=== PATIENT | female | born 1990 | race Hispanic/Latino ===

== ENCOUNTER 2019-09-12 19:44 | Emergency (ER) | payer OTHER ==
--- NOTE | 2019-09-12 20:45 | ER ---
Nurse's Notes [facility] Name: Sindy Chavez Age: 28 yrs Sex: Female : 1990 Arrival Date: 09/12/2019 Time: 19:48 Bed 13 Private MD: Diagnosis: Urticaria Presentation: 09/11 19:59 Chief complaint: Patient states: Started having allergic reaction to body this morning ll1 with itching. No SOB. Unknown allergen. Coronavirus screen: Proceed with normal triage. Patient denies a cough. Patient denies shortness of breath or difficulty breathing. Patient denies measured and/or subjective temperature greater than 100.4F prior to today's visit. Patient denies travel on a cruise ship or to a country the [facility] currently lists as an affected area. Patient denies contact with known and/or suspected case of COVID-19. Ebola Screen: Patient denies travel to an Ebola-affected area in the 21 days before illness onset. Onset: The symptoms/episode began/occurred this morning. Anaphylaxis evaluation, no signs or symptoms of anaphylaxis were noted. Initial Sepsis Screen: Does the patient meet any 2 criteria? No. Patient's initial sepsis screen is negative. Does the patient have a suspected source of infection? No. Patient's initial sepsis screen is negative. Risk Assessment: Do you want to hurt yourself or someone else? Patient reports no desire to harm self or others. Onset of symptoms was September 12, 2019. 19:59 Method Of Arrival: Ambulatory ll1 19:59 Acuity: AVIS 4 ll1 Triage Assessment: 20:05 General: Appears in no apparent distress. uncomfortable, Behavior is calm, cooperative, vc appropriate for age. Historical: - Allergies: 20:01 Flonase; ll1 20:01 Morphine; ll1 20:01 Tylenol; ll1 - PMHx: 20:01 Asthma; ll1 - PSHx: 20:01 None; ll1 - Social history:: Smoking status: Patient denies any tobacco usage or history of. Patient/guardian denies using alcohol, street drugs, tobacco products. Screenin:05 Abuse screen: Denies threats or abuse. Nutritional screening: No deficits noted. Tuberculosis screening: No symptoms or risk factors identified. Fall Risk None identified. Assessment: 20:00 General: Appears in no apparent distress. distressed, Behavior is calm, cooperative, vc appropriate for age. Pain: Denies pain. Respiratory: Airway is patent Respiratory effort is even, unlabored, Respiratory pattern is regular, symmetrical. Derm: Rash noted that is urticaria, on generalized. Musculoskeletal: No deficits noted. 21:00 Reassessment: Patient appears in no apparent distress at this time. Patient and/or vc family updated on plan of care and expected duration. Pain level reassessed. Patient is alert, oriented x 3, equal unlabored respirations, skin warm/dry/pink. Vital Signs: 19:59 BP 131 / 81; Pulse 89; Resp 18; Temp 98.7; Pulse Ox 96% ; Pain 3/10; ll1 ED Course: 19:48 Patient arrived in ED. mr 19:52 Anthony Navarro MD is Attending Physician. pk 20:01 [facility]riage [facility]. [facility] 20:02 Arm band placed on Patient placed in an exam room, on a stretcher. [facility] 20:43 Gadiel Daniel MD is Referral Physician. pk 21:05 Patient has correct armband on for positive identification. Bed in low position. Call light in reach. 21:26 No provider procedures requiring assistance completed. Patient did not have IV access vc during this emergency room visit. Administered Medications: 20:48 Drug: Benadryl 50 mg Route: IM; Site: right ventrogluteal; 21:06 Follow up: Response: No adverse reaction Outcome: 20:44 Discharge ordered by . pk 21:05 Discharged to home ambulatory. 21:05 Condition: good 21:05 Discharge instructions given to patient, Instructed on discharge instructions, follow up and referral plans. medication usage, Demonstrated understanding of instructions, follow-up care, medications, Prescriptions given X 2. 21:06 Patient left the ED. Signatures: Anthony Navarro MD MD [facility] Ashli Varner mr Cayla Salinas RN RN vc Harris, Amy, Alexandra De La Fuente RN, RN RN [facility]
--- NOTE | 2019-09-12 20:45 | EDPHYS ---
Physician Documentation [facility] Name: Sindy Chavez Age: 28 yrs Sex: Female : 1990 Arrival Date: 09/12/2019 Time: 19:48 Bed 13 Private MD: ED Physician Anthony Navarro HPI: 09/11 20:11 This 28 yrs old Female presents to ER via Ambulatory with complaints of pkl Allergic Reaction. 20:11 The rash is located on the body diffusely. The rash can be described as urticarial. pkl Onset: The symptoms/episode began/occurred today. Associated signs and symptoms: Pertinent positives: itching. Historical: - Allergies: 20:01 Flonase; ll1 20:01 Morphine; ll1 20:01 Tylenol; ll1 - PMHx: 20:01 Asthma; ll1 - PSHx: 20:01 None; ll1 - Social history:: Smoking status: Patient denies any tobacco usage or history of. Patient/guardian denies using alcohol, street drugs, tobacco products. ROS: 20:11 Eyes: Negative for injury, pain, redness, and discharge, ENT: Negative for injury, pkl pain, and discharge, Neck: Negative for injury, pain, and swelling, Cardiovascular: Negative for chest pain, palpitations, and edema, Respiratory: Negative for shortness of breath, cough, wheezing, and pleuritic chest pain, Abdomen/GI: Negative for abdominal pain, nausea, vomiting, diarrhea, and constipation, Back: Negative for injury and pain, : Negative for injury, bleeding, discharge, and swelling, MS/Extremity: Negative for injury and deformity. 20:11 Skin: Positive for rash, diffusely. 20:11 Neuro: Negative for altered mental status. Exam: 20:11 Head/Face: Normocephalic, atraumatic. Eyes: Pupils equal round and reactive to light, pkl extra-ocular motions intact. Lids and lashes normal. Conjunctiva and sclera are non-icteric and not injected. Cornea within normal limits. Periorbital areas with no swelling, redness, or edema. ENT: Nares patent. No nasal discharge, no septal abnormalities noted. Tympanic membranes are normal and external auditory canals are clear. Oropharynx with no redness, swelling, or masses, exudates, or evidence of obstruction, uvula midline. Mucous membranes moist. Neck: Trachea midline, no thyromegaly or masses palpated, and no cervical lymphadenopathy. Supple, full range of motion without nuchal rigidity, or vertebral point tenderness. No Meningismus. Chest/axilla: Normal chest wall appearance and motion. Nontender with no deformity. No lesions are appreciated. Cardiovascular: Regular rate and rhythm with a normal S1 and S2. No gallops, murmurs, or rubs. Normal PMI, no JVD. No pulse deficits. Respiratory: Lungs have equal breath sounds bilaterally, clear to auscultation and percussion. No rales, rhonchi or wheezes noted. No increased work of breathing, no retractions or nasal flaring. Abdomen/GI: Soft, non-tender, with normal bowel sounds. No distension or tympany. No guarding or rebound. No evidence of tenderness throughout. Back: No spinal tenderness. No costovertebral tenderness. Full range of motion. MS/ Extremity: Pulses equal, no cyanosis. Neurovascular intact. Full, normal range of motion. Neuro: Awake and alert, GCS 15, oriented to person, place, time, and situation. Cranial nerves II-XII grossly intact. Motor strength 5/5 in all extremities. Sensory grossly intact. Cerebellar exam normal. Normal gait. 20:11 Skin: rash can be described as urticarial, and is diffusely located. Vital Signs: 19:59 BP 131 / 81; Pulse 89; Resp 18; Temp 98.7; Pulse Ox 96% ; Pain 3/10; ll1 MDM: 19:52 Patient medically screened. pkl 20:11 Data reviewed: vital signs, nurses notes. pkl Administered Medications: 20:48 Drug: Benadryl 50 mg Route: IM; Site: right ventrogluteal; 21:06 Follow up: Response: No adverse reaction Disposition: 09/12/19 20:44 Discharged to Home. Impression: Urticaria. - Condition is Stable. - Medication Reconciliation Form, Thank You Letter, Antibiotic Education, Prescription Opioid Use form. - Follow up: Gadiel Daniel MD; When: 2 - 3 days; Reason: Re-evaluation by your physician. - Problem is new. - Symptoms have improved. Signatures: Anthony Navarro MD MD pkl Isabel García RN RN Ta, Lynsay, RN RN ll1 Corrections: (The following items were deleted from the chart) 21:06 20:44 09/12/2019 20:44 Discharged to Home. Impression: Urticaria. Condition is Stable. ah Forms are Medication Reconciliation Form, Thank You Letter, Antibiotic Education, Prescription Opioid Use. Follow up: Gadiel Daniel; When: 2 - 3 days; Reason: Re-evaluation by your physician. Problem is new. Symptoms have improved. pkl
[2019-09-12] MEDS ORDERED: DIPHENHYDRAMINE 50 MG/ML VIAL ONE (20:49)
[2019-09-12 21:13] VITALS: BP 131/81; TEMP 98.7; O2SAT 96
== END 2019-09-12 21:06 | disposition home or self-care (01) ==
LOC: ER 19:44
DX: L50.9 Urticaria, unspecified (principal); Z88.5 Allergy status to narcotic agent; Z88.6 Allergy status to analgesic agent; Z88.8 Allergy status to other drugs, medicaments and biological substances
CPT/HCPCS: 96372; 99283; J1200

== ENCOUNTER 2019-09-13 07:31 | Emergency (ER) | payer OTHER ==
--- OUTSIDE RECORDS SUMMARY | 2019-09-13 07:33 | XMS REPORT ---
:1990 Author Organization [facility] t Address [address] [place] [address] Dr. Cruz [address] [place] [address] Care Team Providers Name Role Phone Unavailable Unavailable Unavailable Problems This patient has no known problems. Allergies, Adverse Reactions, Alerts This patient has no known allergies or adverse reactions. Medications This patient has no known medications.
--- OUTSIDE RECORDS SUMMARY | 2019-09-13 07:33 | XMS REPORT | Summary of Care ---
:1990 Author Organization [facility] - [facility] Address [address] [place] [address] Care Team Providers Name Role Phone Teo Arellano Primary Care Provider Encounter Details Date Type Department Care Team Description 01/05/2019 Letter (Out) [facility] NavarroLeeann MD [address], [address] [facility] [address] [place] [address] [place] [address] [phone] Allergies Active Allergy Reactions Severity Noted Date Comments Fluticasone Propionate Anaphylaxis 01/05/2019 Morphine Hives 01/05/2019 documented as of this encounter (statuses as of 01/05/2019) Medications Medication Sig Dispensed Refills Start Date End Date Status vit Take by mouth. 0 A ctive calc,iron,folic ( VITAMIN ORAL) documented as of this encounter (statuses as of 01/05/2019) Active Problems Estimated Date of Delivery Comments Yes 08/29/2019 No additional problems on filedocumented as of this encounter (statuses as of 01/05/2019) Social History Tobacco Use Types Packs/Day Years Used Date Never Smoker Smokeless Tobacco: Never Used Alcohol Use Drinks/Week oz/Week Comments Not Currently Estimated Date of Delivery Comments Yes 08/29/2019 Sex Assigned at Date Recorded Not on file Job Start Date Occupation Industry Not on file Not on file Not on file Travel History Travel Start Travel End No recent travel history available. documented as of this encounter Last Filed Vital Signs Not on filedocumented in this encounter Plan of Treatment Date Type Specialty Care Team Description 01/21/2019 Routine Obstetrics & Navarro, Leeann Figueredo MD Visit Gynecology [address] [place] [address] DR. Nelson [place], [place] [address] [phone] Health Maintenance Due Date Last Done Comments VARICELLA VACCINES (1 of 2 - 13+ 10/18/2004 2-dose series) DTaP,Tdap,and Td Vaccines (1 - 10/18/2010 Tdap) PAP SMEAR 10/18/2012 INFLUENZA VACCINE (#1) 2019 PNEUMOCOCCAL 0-64 YEARS COMBINED Aged Out No longer eligible based on SERIES patient's age to complete this topic documented as of this encounter Results Not on filedocumented in this encounter Insurance Payer Benefit Plan / Group Subscriber ID Effective Dates Phone Address Type AETNA AETNA [facility] [id number] 2018-Present PPO documented as of this encounter
--- OUTSIDE RECORDS SUMMARY | 2019-09-13 07:34 | XMS REPORT | Summary of Care ---
:1990 Author Organization [facility] - [facility] Address [address] [place] [address] Care Team Providers Name Role Phone Sandragoyo Teo Michaela Primary Care Provider Reason for Visit Reason Comments Orders Encounter Details Date Type Department Care Team Description 01/08/2019 Case Management [facility] Leeann Navarro MD Orders [address]- [address] [facility] [place] [address] [address] [place] [address] [place] [address] [phone] Allergies Active Allergy Reactions Severity Noted Date Comments Fluticasone Propionate Anaphylaxis 01/05/2019 Morphine Hives 01/05/2019 documented as of this encounter (statuses as of 01/08/2019) Medications Medication Sig Dispensed Refills Start Date End Date Status vit Take by mouth. 0 A ctive calc,iron,folic ( VITAMIN ORAL) documented as of this encounter (statuses as of 01/08/2019) Active Problems Estimated Date of Delivery Comments Yes 08/29/2019 No additional problems on filedocumented as of this encounter (statuses as of 01/08/2019) Social History Tobacco Use Types Packs/Day Years [...] & Navarro, Leeann Figueredo MD Visit Gynecology [address] [place] [address] [address]. [place], [place] [address] [phone] Name Type Priority Associated Diagnoses Order S chedule TOTAL BETA HCG ASSAY LAB Routine examinatio n or Expected: 01/10/2019, test, positive result s: 02/08/2019 Health Maintenance Due Date Last Done Comments VARICELLA VACCINES (1 of 2 - 13+ 10/18/2004 2-dose series) DTaP,Tdap,and Td Vaccines (1 - 10/18/2010 Tdap) PAP SMEAR 10/18/2012 INFLUENZA VACCINE (#1) 2019 PNEUMOCOCCAL 0-64 YEARS COMBINED Aged Out No longer eligible based on SERIES patient's age to complete this topic documented as of this encounter Results Not on filedocumented in this encounter Visit Diagnoses Diagnosis examination or test, positive result - Primary documented in this encounter Insurance Payer Benefit Plan / Group Subscriber ID Effective Dates Phone Address Type AETNA AETNA [facility] [id number] 2018-Present PPO documented as of this encounter
--- OUTSIDE RECORDS SUMMARY | 2019-09-13 07:34 | XMS REPORT | Summary of Care ---
:1990 Author Organization [facility] Address [address] [place] [address] Care Team Providers Name Role Phone Pcp, Patient Does Not Have A Primary Care Provider +[id number] Reason for Visit Reason Comments LAB WORK Auth/Cert Status Reason Specialty Diagnoses / Referred By Referred To Procedures Contact Contact Clinical Medical Diagnoses Encounter for test, result positive Encounter for test, result positive [Z32.01] [facility] Lab Laboratory Procedures TOTAL BETA HCG ASSAY [address] [facility] [place] [address] Encounter Details Date Type Department Care Team Description 01/10/2019 Consulting Sme Visit [facility] Leeann Navarro MD [address] [facility] [address] Nelson [facility] [place] [address] Phlebotomy 1, [facility] Lab examination or test, [facility] positive result [address] [facility] [place] [address] Allergies Active Allergy Reactions Severity Noted Date Comments Fluticasone Propionate Anaphylaxis 01/05/2019 Morphine Hives 01/05/2019 documented as of this encounter (statuses as of 01/10/2019) Medications Medication Sig Dispensed Refills Start Date End Date Status vit Take by mouth. 0 A ctive calc,iron,folic ( VITAMIN ORAL) documented as of this encounter (statuses as of 01/10/2019) Active Problems Estimated Date of Delivery Comments Yes 08/29/2019 No additional problems on filedocumented as of this encounter (statuses as of 01/10/2019) Social History Tobacco Use Types Packs/Day Years [...] & Navarro, Leeann Figueredo MD Visit Gynecology [address] [place] [address] DR. Nelson [place] [address] 15 [phone] Name Type Priority Associated Diagnoses Date/Ti me TOTAL BETA HCG ASSAY LAB Routine examinatio n or 01/10/2019 9:47 AM CDT test, positive result Health Maintenance Due Date Last Done Comments VARICELLA VACCINES (1 of 2 - 13+ 10/18/2004 2-dose series) DTaP,Tdap,and Td Vaccines (1 - 10/18/2010 Tdap) INFLUENZA VACCINE (#1) 2019 PAP SMEAR 01/05/2022 01/05/2019 PNEUMOCOCCAL 0-64 YEARS COMBINED Aged Out No longer eligible based on SERIES patient's age to complete this topic documented as of this encounter Results Not on filedocumented in this encounter Visit Diagnoses Diagnosis examination or test, positive result documented in this encounter documented as of this encounter
--- OUTSIDE RECORDS SUMMARY | 2019-09-13 07:34 | XMS REPORT | Summary of Care ---
:[address] [facility] Address [address] [place] [address] Care Team Providers Name Role Phone Teo Arellano Primary Care Provider Reason for Visit Reason Comments MISSED MENSES Encounter Details Date Type Department Care Team Description 01/05/2019 Initial [facility] Women's Leeann Navarro am, MD Cramping affecting , antepartum (Primary Dx); Visit Healthcare- [address] [place] [address] men ses; Rose GAMEZ examination or test, positive result; [address] [place] [address], [facility] 208 with inconclusive viabil ity, single or unspecified fetus; [address] [place], [place] Mild intermittent [place] [phone] Allergies Active Allergy Reactions Severity Noted [...] of this encounter Last Filed Vital Signs Vital Sign Reading Time Taken Comments Blood Pressure 104/66 01/05/2019 8:10 AM CDT Pulse 74 01/05/2019 8:10 AM CDT Temperature 36.9 C (98.5 F) 01/05/2019 8:10 AM CDT Respiratory Rate 20 01/05/2019 8:10 AM CDT Oxygen Saturation - - Inhaled Oxygen Concentration - - Weight 72.1 kg (159 lb) 01/05/2019 8:10 AM CDT Height 157.5 cm (5' 2") 01/05/2019 8:10 AM CDT Body Mass Index 29.08 01/05/2019 8:10 AM CDT documented in this encounter Progress Notes Leeann Navarro MD - 01/05/2019 8:00 AM CDT Chief complaint: Chief Complaint Patient presents with MISSED MENSES HPI Sindy Chavez is a 28 year old female @ 6w2d by Patient's last menstrual period was 11/22/2018 (exact date). here for NOB visit. Regular monthly period. Denies vaginal bleeding. + midline abdominal cramping intermittently. Histories OB History Para Term AB Living 1 0 0 0 0 0 SAB TAB Ectopic Multiple Live Births 0 0 0 0 0 # Outcome Date GA Lbr Nba/2nd Weight Sex Delivery Anes PTL Lv 1 Current Past Medical History: Diagnosis Date Anemia Asthma Breast disorder Pain Kidney disease Pyelonephritis Ovarian cyst 2011 Family History Problem Relation Age of Onset Breast Cancer Mother High cholesterol Father Hypertension Father Arthritis NoFHx Asthma NoFHx defects NoFHx Genetic NoFHx Colon Cancer NoFHx Ovarian Cancer NoFHx Uterine Cancer NoFHx Cancer NoFHx Depression NoFHx Psychiatry NoFHx Diabetes NoFHx Heart NoFHx Mental retardation NoFHx Neurological NoFHx Osteoporosis NoFHx Family Status Relation Name Status Mo Alive Fa Alive NoFHx (Not Specified) Past Surgical History: Procedure Laterality Date COLONOSCOPY 2018 TOOTH EXTRACTION Social History Socioeconomic History Marital status: Single Spouse name: Not on file Number of children: Not on file Years of education: Not on file Highest education level: Not on file Occupational History Not on file Social Needs Financial resource strain: Not on file Food insecurity: Worry: Not on file Inability: Not on file Transportation needs: Medical: Not on file Non-medical: Not on file Tobacco Use Smoking status: Never Smoker Smokeless tobacco: Never Used Substance and Sexual Activity Alcohol use: Not Currently Drug use: Never Sexual activity: Yes Partners: Male Lifestyle Physical activity: Days per week: Not on file Minutes per session: Not on file Stress: Not on file Relationships Social connections: Talks on phone: Not on file Gets together: Not on file Attends mandaeism service: Not on file Active member of club or organization: Not on file Attends meetings of clubs or organizations: Not on file Relationship status: Not on file Intimate partner violence: Fear of current or ex partner: Not on file Emotionally abused: Not on file Physically abused: Not on file Forced sexual activity: Not on file Other Topics Concern Not on file Social History Narrative No exposure to cats Mandaeism preference: Hindu Denies domestic violence or abuse Social History Substance and Sexual Activity Sexual Activity Yes Partners: Male Genetic Screen Teratological Substances (specify type & strength/dose) since LMP: No No Significant History of Genetic Disorders: No Significant History of Genetic Disorders Labs No new labs Radiology No new radiology. Allergies Sindy is allergic to flonase [fluticasone propionate] and morphine. Medications Sindy has a current medication list which includes the following prescription(s): vit calc,iron,folic. Review of Systems Constitutional: Negative for chills, fatigue and fever. HENT: Negative for congestion, rhinorrhea, sneezing and sore throat. Respiratory: Negative for cough, chest tightness, shortness of breath and wheezing. Breasts: Positive for pain (since ). Negative for discharge, mass and unequal size. Cardiovascular: Negative for chest pain and palpitations. Gastrointestinal: Negative for abdominal distention, abdominal pain, anal bleeding, blood in stool, constipation, diarrhea, nausea and vomiting. Genitourinary: Positive for dyspareunia. Negative for bladder incontinence, dysuria, urgency, frequency, vaginal bleeding and vaginal discharge. Musculoskeletal: Negative for gait problem. Skin: Negative for rash. Neurological: Negative for syncope, light-headedness and headaches. Psychiatric/Behavioral: Negative for dysphoric mood, self-injury and suicidal ideas. The patient is nervous/anxious. Hematological: Negative for cold intolerance and heat intolerance. Does not bruise/bleed easily. Endocrine: Negative for cold intolerance and heat intolerance. BP 104/66 (BP Location: Left arm, Patient Position: Sitting, BP CUFF SIZE: Adult Medium) | Pulse 74 | Temp 36.9 C (98.5 F) (Oral) | Resp 20 | Ht 5' 2" (1.575 m) | Wt 159 lb (72.1 kg) | LMP 11/22/2018 (Exact Date) | BMI 29.08 kg/m Pregravid BMI: Could not be calculated Physical Exam Vitals reviewed. Constitutional: She is oriented to person, place, and time. She appears well- developed and well-nourished. Neck: No mass. No thyromegaly palpated. Cardiovascular: Regular rate and rhythm. Pulmonary/Chest: Breath sounds clear to auscultation. Normal inspiratory effort. Abdominal: Abdomen is soft. No tenderness present. No hernia palpated or inspected. Neuro/Psychiatric: She has a normal mood and affect. She is oriented to person, place, and time. Skin: Skin normal. No rash present. Lymphadenopathy: No axillary adenopathy present. No inguinal adenopathy present. Breast: Right breast exhibits no mass, no nipple discharge and no tenderness. Left breast exhibits no mass, no nipple discharge and no tenderness. Breasts are symmetrical. External genitalia: Normal external genitalia appropriate for age. Normal hair distribution. No labial lesion. Urethral meatus: Normal urethral meatus Urethra: Normal urethra. Bladder: Normal bladder Vagina:Normal vagina. Cervix: Normal cervix. No lesion. No tenderness and no discharge present. Uterus: Uterus is normal size and non-tender. Adnexa: Right adnexa without tenderness or mass. Left adnexa without tenderness or mass. Anus/perineum: Normal perineum and normal anus. Assessment/Plan See OB Summary Return to clinic in 2 weeks. Reviewed patient instructions and provided printed copy. Activity restrictions: As tolerated at 6w2d This visit did not involve counseling and coordination that comprised more than 50% of the visit time. Leeann Navarro MD 01/05/2019 10:30 AM documented in this encounter Plan of Treatment Date Type Specialty Care Team Description 01/05/2019 Ancillary Procedure Obstetrics & Leeann Navarro MD Arrived Gynecology [address] [place] [address] [address] [place], [place] [address] [phone] 01/21/2019 Routine Obstetrics & Leeann Navarro MD Visit Gynecology [address] [place] [address] [address] [place], [place] [address] [phone] Name Type Priority Associated Diagnoses Order S chedule TOTAL BETA HCG ASSAY LAB Routine examinatio n or 2 Occurrences starting test, positive r esult 01/05/2019 until with 03/07/2019 inconclusive viability, single or unspecified fetus WORKUP, BLOOD LAB Routine examinat ion or Expected: 01/05/2019, BANK test, positive r esult Expires: 04/07/2019 with inconclusive viability, single or unspecified fetus TRICHOMONAS AMPLIFIED LAB Routine examinati on or Ordered: 01/05/2019 ASSAY test, positive result GC & CHLAMYDIA AMPLIFIED LAB Routine examin ation or Ordered: 01/05/2019 ASSAY test, positive result ADC / LCC - DRUG SCREEN LAB Routine examina tion or Ordered: 01/05/2019 TRIAGE test, positive result PAP Smear-Liquid Based LAB Routine examinat ion or Ordered: 01/05/2019 test, positive result Health Maintenance Due Date Last Done Comments VARICELLA VACCINES (1 of 2 - 13+ 10/18/2004 2-dose series) DTaP,Tdap,and Td Vaccines (1 - 10/18/2010 Tdap) PAP SMEAR 10/18/2012 INFLUENZA VACCINE (#1) 2019 PNEUMOCOCCAL 0-64 YEARS COMBINED Aged Out No longer eligible based on SERIES patient's age to complete this topic documented as of this encounter Procedures Procedure Name Priority Date/Time Associated Comments Diagnosis US OB TRANSVAGINAL Routine 01/05/2019 10:30 AM Cramping affect ing Results for this CDT , procedure are i n antepartum the results section. POCT TEST Routine 01/05/2019 8:35 AM Missed menses Results for this CDT procedure are i n the results section. documented in this encounter Results US OB TRANSVAGINAL (01/05/2019 10:30 AM CDT) Specimen Narrative Performed At This result has an attachment that is no t available. Pelvic cramping in early :intrauterine GS with yolk sac and no PACS pole noted Leeann Navarro MD01/05/201910:30 AM Performing Organization Address City/State/Zipcode Phone Number PACS POCT TEST (01/05/2019 8:35 AM CDT) Pathologist Sig nature POCT PREG Positive On board controls acceptable Yes with C Line POCT PREG LOT # POCT PREG TEST DATE Specimen Urine - URINE, UNSPECIFIED SOURCE Narrative Performed At accurate development and interpretation of all internal controls documented in this encounter Visit Diagnoses Diagnosis Cramping affecting , antepartum - Primary Missed menses Absence of menstruation examination or test, positive result with inconclusive viabil ity, single or unspecified fetus Mild intermittent asthma without complic ation Unspecified asthma documented in this encounter documented as of this encounter
--- OUTSIDE RECORDS SUMMARY | 2019-09-13 07:34 | XMS REPORT | Summary of Care ---
:1990 Author Organization [facility] Address [address] [place] [address] Care Team Providers Name Role Phone Teo Arellano Primary Care Provider Reason for Visit Reason Comments LAB Encounter Details Date Type Department Care Team Description 01/07/2019 Appliance Servicer Visit [facility] Leeann Navarro MD [address] [facility] [address] [place] [address] examination or test, positive result; Professional Office 2, Adc Lab with inconclusive viabil ity, single or unspecified fetus Building Phlebotomy Lab Professional Office Building [address] [facility] , [address] [place] [address] Allergies Active Allergy Reactions Severity Noted Date Comments Fluticasone Propionate Anaphylaxis 01/05/2019 Morphine Hives 01/05/2019 documented as of this encounter (statuses as of 01/07/2019) Medications Medication Sig Dispensed Refills Start Date End Date Status vit Take by mouth. 0 A ctive calc,iron,folic ( VITAMIN ORAL) documented as of this encounter (statuses as of 01/07/2019) Active Problems Estimated Date of Delivery Comments Yes 08/29/2019 No additional problems on filedocumented as of this encounter (statuses as of 01/07/2019) Social History Tobacco Use Types Packs/Day Years [...] & Navarro, Leeann Figueredo MD Visit Gynecology [address] [place] [address] [address]. Nelson [place], [place] [address] [phone] Health Maintenance Due Date Last Done Comments [...] Diagnoses Diagnosis examination or test, positive result with inconclusive viabil ity, single or unspecified fetus documented in this encounter documented as of this encounter
--- OUTSIDE RECORDS SUMMARY | 2019-09-13 07:34 | XMS REPORT | Summary of Care ---
:1990 Author Organization [facility] Address [address] [place] [address] Care Team Providers Name Role Phone Teo Arellano Primary Care Provider Reason for Visit Reason Comments LAB Encounter Details Date Type Department Care Team Description 01/05/2019 Professional Caster Visit [facility] Ninfa Diane PA-C [address] [facility] [address] [place] [address] examination or test, positive result; Professional Office 2, Adc Lab with inconclusive viabil ity, single or unspecified fetus Building Phlebotomy Lab Professional Office Building [address] [place] [address] , [address] [place] [address] Allergies Active Allergy Reactions Severity [...] & Navarro, Leeann Figueredo MD Visit Gynecology [address] [place] [address] DR. Nelson [place], [place] [address] [phone] Health Maintenance Due Date Last Done Comments [...]
--- OUTSIDE RECORDS SUMMARY | 2019-09-13 07:34 | XMS REPORT | Summary of Care ---
:1990 Author Organization [facility] Address [address] [place] [address] Care Team Providers Name Role Phone Pcp, Patient Does Not Have A Primary Care Provider +1-000-00 0-0000 Encounter Details Date Type Department Care Team Description 01/14/2019 Patient Secure [facility] [address] [place] [address] [address] [place] [phone] Allergies Active Allergy Reactions Severity Noted Date Comments Fluticasone Propionate Anaphylaxis 01/05/2019 Morphine Hives 01/05/2019 documented as of this encounter (statuses as of 01/14/2019) Medications Medication Sig Dispensed Refills Start Date End Date Status vit Take by mouth. 0 A ctive calc,iron,folic ( VITAMIN ORAL) documented as of this encounter (statuses as of 01/14/2019) Active Problems Estimated Date of Delivery Comments Yes 08/29/2019 No additional problems on filedocumented as of this encounter (statuses as of 01/14/2019) Social History Tobacco Use Types Packs/Day Years [...] & Navarro, Leeann Figueredo MD Visit Gynecology [address] [place] [address] DR. Nelson [place], [place] [address] [phone] Health Maintenance Due Date Last Done Comments [...] Effective Dates Phone Address Type AETNA AETNA [facility] CARE [id number] 2018-Present PPO documented as of this encounter
--- OUTSIDE RECORDS SUMMARY | 2019-09-13 07:35 | XMS REPORT | Summary of Care ---
:1990 Author Organization [facility] Address [address] [place] [address] Care Team Providers Name Role Phone Pcp, Patient Does Not Have A Primary Care Provider +1-000-00 0-0000 Reason for Visit Reason Comments Assessment Encounter Details Date Type Department Care Team Description 01/29/2019 Telephone [facility] Women's Leeann Navarro MD Assessment Healthcare- [address], Suite [facility] 20 8 [address] [place] [address] [place] [address] [phone] Allergies Active Allergy Reactions Severity Noted Date Comments Fluticasone Propionate Anaphylaxis 01/05/2019 Morphine Hives 01/05/2019 documented as of this encounter (statuses as of 01/29/2019) Medications Medication Sig Dispensed Refills Start Date End Date Status vit Take by mouth. 0 A ctive calc,iron,folic ( VITAMIN ORAL) albuterol 90 Inhale 2 Puffs 8.5 g 1 01/26/2019 A ctive mcg/actuation every 6 (six) inhaler hours as needed for Wheezing or Shortness of Breath. doxylamine-pyrido 1po@HS.If not 120 tablet 1 01/29/2019 Active xine, vit B6, effective,2 (DICLEGIS) 10-10 po@HS,if not mg per tablet effective 2po@hS&1po in AM.If not effective,2po@H S,1po in AM, & 1early PM. Max 4 tab/day. pyridoxine HCl, Take by mouth. 0 01/30/20 19 Discontinued vitamin B6, (VITAMIN B-6 ORAL) documented as of this encounter (statuses as of 01/29/2019) Active Problems Estimated Date of Delivery Comments Yes 09/08/2019 Based on Ultrasound No additional problems on filedocumented as of this encounter (statuses as of 01/29/2019) Social History Tobacco Use Types Packs/Day Years Used Date Never Smoker Smokeless Tobacco: Never Used Alcohol Use Drinks/Week oz/Week Comments Not Currently Estimated Date of Delivery Comments Yes 09/08/2019 Based on Ultrasound Sex Assigned at Date Recorded Not on file Job Start Date Occupation Industry Not on file Not on file Not on file Travel History Travel Start Travel End No recent travel history available. documented as of this encounter Last Filed Vital Signs Not on filedocumented in this encounter Plan of Treatment Date Type Specialty Care Team Description 02/19/2019 Routine Obstetrics & Navarro, Leeann Figueredo MD Visit Gynecology [address] [place] [address] [address]. Nelson [place] [address] [phone] Health Maintenance Due Date Last Done Comments DTaP,Tdap,and Td Vaccines (1 - 10/18/2010 Tdap) INFLUENZA VACCINE (#1) 2019 PAP SMEAR 01/05/2022 01/05/2019 PNEUMOCOCCAL 0-64 YEARS COMBINED Aged Out No longer eligible based on SERIES patient's age to complete this topic documented as of this encounter Results Not on filedocumented in this encounter Insurance Payer Benefit Plan / Group Subscriber ID Effective Dates Phone Address Type AETNA AETNA [facility] CARE [id number] 2018-Present PPO documented as of this encounter
--- OUTSIDE RECORDS SUMMARY | 2019-09-13 07:35 | XMS REPORT | Summary of Care ---
:1990 Author Organization [facility] Address [address] [place] [address] Care Team Providers Name Role Phone Pcp, Patient Does Not Have A Primary Care Provider +1-000-00 0-0000 Reason for Visit Reason Comments Notification pt has questions Encounter Details Date Type Department Care Team Description 01/26/2019 Telephone [facility] Women's NavarroLeeann MD Notification (pt has Healthcare- [address] questions) [address] [place] [address] 208 [facility] 208 [place], [place] [address] [phone] Allergies Active Allergy Reactions Severity Noted Date Comments Fluticasone Propionate Anaphylaxis 01/05/2019 Morphine Hives 01/05/2019 documented as of this encounter (statuses as of 01/26/2019) Medications Medication Sig Dispensed Refills Start Date End Date Status vit Take by mouth. 0 A ctive calc,iron,folic ( VITAMIN ORAL) pyridoxine HCl, Take by mouth. 0 Active vitamin B6, (VITAMIN B-6 ORAL) albuterol 90 Inhale 2 Puffs 8.5 g 1 01/26/2019 A ctive mcg/actuation inhaler every 6 (six) hours as needed for Wheezing or Shortness of Breath. documented as of this encounter (statuses as of 01/26/2019) Active Problems Estimated Date of Delivery Comments Yes 09/08/2019 Based on Ultrasound No additional problems on filedocumented as of this encounter (statuses as of 01/26/2019) Social History Tobacco Use Types Packs/Day Years [...] & Navarro, Leeann Figueredo MD Visit Gynecology [address] [place] [address] [address]. Nelson [place] [address] [phone] Health Maintenance Due Date Last Done Comments [...] Effective Dates Phone Address Type AETNA AETNA [facility] [id number] 2018-Present PPO documented as of this encounter
--- OUTSIDE RECORDS SUMMARY | 2019-09-13 07:35 | XMS REPORT | Summary of Care ---
:1990 Author Organization [facility] - Health Address [address] [place] [address] Care Team Providers Name Role Phone Pcp, Patient Does Not Have A Primary Care Provider +1-000-00 0-0000 Encounter Details Date Type Department Care Team Description 01/24/2019 Orders Only [facility] Doctor Unassigned, No 301 [facility] [place] [facility] [place] [address] [address] [place] [address] Allergies Active Allergy Reactions Severity Noted Date Comments Fluticasone Propionate Anaphylaxis 01/05/2019 Morphine Hives 01/05/2019 documented as of this encounter (statuses as of 01/24/2019) Medications Medication Sig Dispensed Refills Start Date End Date Status vit Take by mouth. 0 A ctive calc,iron,folic ( VITAMIN ORAL) pyridoxine HCl, vitamin Take by mouth. 0 Active B6, (VITAMIN B-6 ORAL) documented as of this encounter (statuses as of 01/24/2019) Active Problems Estimated Date of Delivery Comments Yes 09/08/2019 Based on Ultrasound No additional problems on filedocumented as of this encounter (statuses as of 01/24/2019) Social History Tobacco Use Types Packs/Day Years [...] & Navarro, Leeann Figueredo MD Visit Gynecology [address] [place] [address] DR. Nelson [place], [place] [address] [phone] Health Maintenance Due Date Last Done Comments VARICELLA VACCINES (1 of 2 - 13+ 10/18/2004 2-dose series) DTaP,Tdap,and Td Vaccines (1 - 10/18/2010 Tdap) INFLUENZA VACCINE (#1) 2019 PAP SMEAR 01/05/2022 01/05/2019 PNEUMOCOCCAL 0-64 YEARS COMBINED Aged Out No longer eligible based on SERIES patient's age to complete this topic documented as of this encounter Procedures Procedure Name Priority Date/Time Associated Diagnosis Comme nts CONSENT/REFUSAL FOR Routine 01/24/2019 9:08 AM CDT DIAGNOSIS AND TREATMENT documented in this encounter Results Not on filedocumented in this encounter Insurance Payer Benefit Plan / Group Subscriber ID Effective Dates Phone Address Type AETNA AETNA [facility] CARE [id number] 2018-Present PPO documented as of this encounter
--- OUTSIDE RECORDS SUMMARY | 2019-09-13 07:35 | XMS REPORT | Summary of Care ---
:1990 Author Organization [facility] Address [address] [place] [address] Care Team Providers Name Role Phone Pcp, Patient Does Not Have A Primary Care Provider +1-000-00 0-0000 Encounter Details Date Type Department Care Team Description 01/22/2019 Patient Secure [facility] Women's Doctor Unassign ed, [facility] [place] [address], [address] [facility] [address] [place] [address] [place] [address] Allergies Active Allergy Reactions Severity Noted Date [...] & Navarro, Leeann Figueredo MD Visit Gynecology [address] [place] [address] [address]. Nelson [place], [place] [address] [phone] Health Maintenance Due Date Last Done Comments [...] Effective Dates Phone Address Type AETNA AETNA [facility] CARE [id number] 2018-Present PPO documented as of this encounter
--- OUTSIDE RECORDS SUMMARY | 2019-09-13 07:35 | XMS REPORT | Summary of Care ---
:[address] [facility] Address [address] [place] [address] Care Team Providers Name Role Phone Pcp, Patient Does Not Have A Primary Care Provider +1-000-00 0-0000 Reason for Visit Reason Comments New Medication Encounter Details Date Type Department Care Team Description 01/28/2019 Case Management [facility] Women's NavarroLeeann MD New Medication Healthcare- [address], [facility] 208 [facility] 208 [place] [address] [place] [address] [phone] Allergies Active Allergy Reactions Severity Noted Date Comments Fluticasone Propionate Anaphylaxis 01/05/2019 Morphine Hives 01/05/2019 documented as of this encounter (statuses as of 01/28/2019) Medications Medication Sig Dispensed Refills Start Date [...] as of this encounter (statuses as of 01/28/2019) Active Problems Estimated Date of Delivery Comments Yes 09/08/2019 Based on Ultrasound No additional problems on filedocumented as of this encounter (statuses as of 01/28/2019) Social History Tobacco Use Types Packs/Day Years [...] & Navarro, Leeann Figueredo MD Visit Gynecology [address] [place] [address] DR. Nelson [place], [place] [address] [phone] Health Maintenance Due Date Last Done Comments [...] filedocumented in this encounter Visit Diagnoses Diagnosis Mild intermittent asthma without complic ation - Primary Unspecified asthma documented in this encounter Insurance Payer Benefit Plan / Group Subscriber ID Effective Dates Phone Address Type AETNA AETNA [facility] [id number] 2018-Present PPO documented as of this encounter
--- OUTSIDE RECORDS SUMMARY | 2019-09-13 07:35 | XMS REPORT | Summary of Care ---
:1990 Author Organization [facility] Address [address] [place] [address] Care Team Providers Name Role Phone Pcp, Patient Does Not Have A Primary Care Provider +[id number] 0-0000 Reason for Referral (Routine) Status Reason Specialty Diagnoses / Referred By Referred To Procedures Contact Contact New Request Maternal Diagnoses High-risk in first trimester Less than 8 weeks gestation of Leeann Navarro, Medicine Procedures CONSULT MATERNAL MEDICINE ULTRASOUND Preferred Location: Rose MILLER [address] [place], [place] [address] [address] [address] Reason for Visit Reason Comments ROUTINE VISIT Encounter Details Date Type Department Care Team Description 01/21/2019 Routine [facility] Women's Leeann Navarro am, MD High-risk in first trimester ( Primary Dx); Visit Healthcare- [address] [place] [address] Less than 8 weeks gestation of Rose GAMEZ [address] [place] [address] [address] [place] [phone] Allergies Active Allergy Reactions Severity Noted Date Comments Fluticasone Propionate Anaphylaxis 01/05/2019 Morphine Hives 01/05/2019 documented as of this encounter (statuses as of 01/21/2019) Medications Medication Sig Dispensed Refills Start Date End Date Status vit Take by mouth. 0 A ctive calc,iron,folic ( VITAMIN ORAL) pyridoxine HCl, vitamin Take by mouth. 0 Active B6, (VITAMIN B-6 ORAL) documented as of this encounter (statuses as of 01/21/2019) Active Problems Estimated Date of Delivery Comments Yes 09/08/2019 Based on Ultrasound No additional problems on filedocumented as of this encounter (statuses as of 01/21/2019) Social History Tobacco Use Types Packs/Day Years [...] Sign Reading Time Taken Comments Blood Pressure 103/69 01/21/2019 8:29 AM CDT Pulse 79 01/21/2019 8:29 AM CDT Temperature 36.7 C (98.1 F) 01/21/2019 8:29 AM CDT Respiratory Rate 18 01/21/2019 8:29 AM CDT Oxygen Saturation - - Inhaled Oxygen Concentration - - Weight 70.8 kg (156 lb) 01/21/2019 8:29 AM CDT Height 157.5 cm (5' 2") 01/21/2019 8:29 AM CDT Body Mass Index 28.53 01/21/2019 8:29 AM CDT documented in this encounter Patient Instructions Patient InstructionsDoreen Kaminski MA - 01/21/2019 9:00 AM CDT Adapting to : First Trimester As your body adjusts, you may have to change or limit your daily activities. Youll need more rest. You may also need to use the energy you have more wisely. Your changing body Almost every part of your body is affected as you adapt to . The uterus and cervix will begin to soften right away. You may not look very during the first 3 months. But you are likelyto have some common signs of early : Nausea Fatigue Frequent urination Mood swings Bloating of the belly Constipation Heartburn Missed or light periods (first trimester bleeding) Nipple or breast tenderness and breast swelling Its not too late to start good habits What matters most is protecting your baby from this moment on. If you smoke, drink alcohol, or use drugs, now is the time to stop. If you need help, talk with your healthcare provider: Smoking increases the risk of stillbirthor having a kce-ixaks-bmbzah baby. If you smoke, quit now. Alcohol and drugs have been linked with miscarriage, defects, intellectual disability, and low weight. Do not drink alcohol or take drugs. Tips to relieve nausea Although nausea can happen at any time of the day, it may be worse in the morning. To help prevent nausea: Eat small, light meals at frequent intervals. Drink fluids often. Get up slowly. Eat a few unsalted crackers before you get out of bed. Avoid smells that bother you. Avoid spicy and fatty foods. Eat an ice popin your favorite flavor. Get plenty of rest. Ask your healthcare provider about taking julien or vitamin B6 for nausea and vomiting. Talk with your healthcare provider if you take vitamins that upset your stomach. Work concerns The end of the first trimester is a good time to discuss working during with your employer. Follow your healthcare providers advice if your job needs you to stand for a long time, work with hazardous tools, or even sit at a desk all day. Your workspace, workload, or scheduled hours may need to be adjusted. Perhaps you can change body postures more often or take an extra break. Advice for travel Talk to your healthcare provider first, but the second trimester may be the best time for any travel. You may be advised to avoid certain trips while youre . Food and water can be concerns in developing countries. Travel by car is a good choice, as you can stop, get out, and stretch. Bring snacks and water along. Fasten the lap belt below your belly, low over your hips. Also be sure to wear the shoulder harness. Intimacy Unless your healthcare provider tells you to, there is no reason to stop having sex while youre . You or your partner may notice changes in desire. Desire may be less in the first trimester,due to nausea and fatigue. In the second trimester, sex may be very enjoyable. The third trimester can be a challenge comfort-guerra. Try different positions and see whats best for you both. Date Last Reviewed: 02/17/201719991604-2073 [employer]. [address] [place] [address], [place] [address]. All rights reserved. This information is not intended as a substitute for professional medical care. Always follow your healthcare professional's instructions. : Your First Trimester Changes The first trimester is a time of rapid development for your baby. Because your baby is growing so quickly, it is important that you start a healthy lifestyle right away. By the end of the first trimester, your baby has formed all of its major body organs and weighs just over an ounce. Actual size of baby is 1/4" Month 1 (weeks 1 to 4) The placenta (the organ that nourishes your baby) begins to form. Thebrain, spinal cord,heart,gastrointestinal tract,and lungs begin to develop. Your baby is about 1/4-inch long by the end of the first month. Actual size of baby is 1" Month 2 (weeks 5 to 8) All of your babys major body organs form. The face, fingers, toes, ears, and eyes appear. By the end of the month, your baby is about 1-inch long. Actual size of baby is 3" Month 3 (weeks 9 to 12) Your baby can open and close its fists and mouth. The sexual organs begin to form. As the first trimester ends, your baby is about 3-inches long. Date Last Reviewed: 02/17/201719996605-5732 [employer]. [address] [place] [address]. All rights reserved. This information is not intended as a substitute for professional medical care. Always follow your healthcare professional's instructions. documented in this encounter Progress Notes Leeann Navarro MD - 01/21/2019 9:00 AM CDT Chief complaint: Chief Complaint Patient presents with ROUTINE VISIT HPI Denies vaginal bleeding or cramping. Histories OB History Para Term AB Living [...] EXTRACTION Social History Socioeconomic History Marital status: Spouse name: Not on file Number of [...] file Gets together: Not on file Attends mandaen service: Not on file Active member of [...] Social History Narrative No exposure to cats Cheondoism preference: Religion Denies domestic violence or abuse Social History Substance and Sexual Activity Sexual Activity Yes Partners: Male Labs No new labs Radiology No new radiology. Allergies Sindy is allergic to flonase [fluticasone propionate] and morphine. Medications Sindy has a current medication list which includes the following prescription(s): pyridoxine hcl (vitamin b6) and vit calc,iron,folic. Review of Systems Constitutional: Negative for chills, fatigue and fever. HENT: Negative for congestion, rhinorrhea, sneezing and sore throat. Eyes: Negative for photophobia and visual disturbance. Respiratory: Negative for cough, chest tightness, shortness of breath and wheezing. Cardiovascular: Negative for chest pain and palpitations. Gastrointestinal: Positive for nausea. Negative for abdominal distention, abdominal pain, constipation, diarrhea and vomiting. Genitourinary: Negative for dysuria, urgency, frequency, vaginal bleeding and vaginal discharge. Skin: Negative for rash. Neurological: Negative for syncope and headaches. Hematological: Does not bruise/bleed easily. BP 103/69 (BP Location: Left arm, Patient Position: Sitting, BP CUFF SIZE: Adult Medium) | Pulse 79 | Temp 36.7 C (98.1 F) (Oral) | Resp 18 | Ht 5' 2" (1.575 m) | Wt 156 lb (70.8 kg) | LMP 11/22/2018 (Exact Date) | BMI 28.53 kg/m Pregravid BMI: 29.1 Physical Exam Vitals reviewed. Constitutional: She is oriented to person, place, and time. She appears well- developed and well-nourished. Cardiovascular: Regular rate and rhythm. Pulmonary/Chest: Normal inspiratory effort. Abdominal: Abdomen is soft. No tenderness present. No hernia palpated or inspected. Neuro/Psychiatric: She has a normal mood and affect. She is oriented to person, place, and time. Skin: Skin normal. No rash present. Assessment/Plan See OB Summary Return to clinic in 4 weeks. Reviewed patient instructions and provided printed copy. Activity restrictions: As tolerated at 7w1d This visit did not involve counseling and coordination that comprised more than 50% of the visit time. Leeann Navarro MD 01/21/2019 9:34 AM documented in this encounter Plan of Treatment Date Type Specialty Care Team Description 02/19/2019 Routine Obstetrics & Leeann Navarro MD Visit Gynecology [address] [place] [address] DR. Nelson [place] [address] [phone] Name Type Priority Associated Diagnoses Order S chedule GC & CHLAMYDIA LAB Routine High-risk in Ord ered: 01/21/2019 AMPLIFIED ASSAY first trimester Less than 8 weeks gestation of ADC OR MIRIAM ONLY - LAB Routine High-risk in Expected: 01/21/2019, RPR first trimester Expires: 04/22/2019 Less than 8 weeks gestation of ADC, CLC OR LCC ONLY - LAB Routine High-risk pregnanc y in Expected: 01/21/2019, HIV TYPE 1 AND 2 first trimester Expires: 04/22/2019 ANTIBODY SCREEN WITH Less than 8 weeks P24 gestation of HCV ANTIBODY LAB Routine High-risk in Expec layo: 01/21/2019, first trimester Expires: 04/22/2019 Less than 8 weeks gestation of HEPATITIS B SURFACE LAB Routine High-risk i n Expected: 01/21/2019, ANTIGEN first trimester Expires: 04/22/2019 Less than 8 weeks gestation of CBC WITH DIFF LAB Routine High-risk in Expe cted: 01/21/2019, first trimester Expires: 04/22/2019 Less than 8 weeks gestation of GLUCOSE 1 HOUR POST LAB Routine High-risk i n Expected: 01/21/2019, PRANDIAL first trimester Expires: 04/22/2019 Less than 8 weeks gestation of RUBELLA SCREEN IGG LAB Routine High-risk in Expected: 01/21/2019, first trimester Expires: 04/22/2019 Less than 8 weeks gestation of VZV ANTIBODY SCREEN LAB Routine High-risk i n Expected: 01/21/2019, first trimester Expires: 04/22/2019 Less than 8 weeks gestation of URINE CULTURE LAB Routine High-risk in Expe cted: 01/21/2019, first trimester Expires: 04/22/2019 Less than 8 weeks gestation of BASIC METABOLIC PANEL LAB Routine High-risk in 1 Occurrences starting (NA, K, CL, CO2, first trimester 01/21/2019 until GLUCOSE, BUN, Less than 8 weeks 9 CREATININE, CA) gestation of Health Maintenance Due Date Last Done Comments VARICELLA VACCINES (1 of 2 - 13+ 10/18/2004 2-dose series) DTaP,Tdap,and Td Vaccines (1 - 10/18/2010 Tdap) INFLUENZA VACCINE (#1) 2019 PAP SMEAR 01/05/2022 01/05/2019 PNEUMOCOCCAL 0-64 YEARS COMBINED Aged Out No longer eligible based on SERIES patient's age to complete this topic documented as of this encounter Procedures Procedure Name Priority Date/Time Associated Comments Diagnosis <14 WEEKS US Routine 01/21/2019 9:34 AM High-risk R esults for this LIMITED CDT in first trime ster procedure are in Less than 8 weeks the result s gestation of section. POCT URINALYSIS W/O Routine 01/21/2019 Less than 8 weeks Res ults for this SPECIFIC GRAVITY gestation of procedure a re in the results section. documented in this encounter Results <14 WEEKS US LIMITED (01/21/2019 9:34 AM CDT) Specimen Narrative Performed At This result has an attachment that is no t available. Limited USG for viability and dating:Single live IUP measured 7 PACS 1/7 weeks, not consistent with LMP.Will date by th is ultrasound. Leeann Navarro MD01/21/20199:35 AM Performing Organization Address City/State/Zipcode Phone Number PACS POCT URINALYSIS W/O SPECIFIC GRAVITY (01/21/2019) Pathologist Sig nature POCT PH U N/A 5 - 8 mg/dl POCT U LEUK EST N/A Negative - Negative POCT U NIT N/A Negative - Negative POCT U PROT Negative Negative - Negative POCT U GLU Negative Negative - Negative POCT U KETONE N/A Negative - Negative POCT U BLD N/A Negative - Negative Specimen Urine - URINE, CLEAN CATCH documented in this encounter Visit Diagnoses Diagnosis High-risk in first trimester - Primary Less than 8 weeks gestation of state, incidental documented in this encounter documented as of this encounter
--- OUTSIDE RECORDS SUMMARY | 2019-09-13 07:35 | XMS REPORT | Summary of Care ---
:1990 Author Organization [facility] Address [address] [place] [address] Care Team Providers Name Role Phone Pcp, Patient Does Not Have A Primary Care Provider +1-000-00 0-0000 Encounter Details Date Type Department Care Team Description 01/22/2019 Patient Secure Msg [facility] Women's Doctor Unassign ed, [facility] [place] [address], [address] [facility] [address] [place] [address] [place] [address] Allergies Active Allergy Reactions Severity Noted Date Comments Fluticasone Propionate Anaphylaxis 01/05/2019 Morphine Hives 01/05/2019 documented as of this encounter (statuses as of 01/23/2019) Medications Medication Sig Dispensed Refills Start Date End Date Status vit Take by mouth. 0 A ctive calc,iron,folic ( VITAMIN ORAL) pyridoxine HCl, vitamin Take by mouth. 0 Active B6, (VITAMIN B-6 ORAL) documented as of this encounter (statuses as of 01/23/2019) Active Problems Estimated Date of Delivery Comments Yes 09/08/2019 Based on Ultrasound No additional problems on filedocumented as of this encounter (statuses as of 01/23/2019) Social History Tobacco Use Types Packs/Day Years [...] & Navarro, Leeann Figueredo MD Visit Gynecology [address] [place] [address] DR. Nelson [place], [place] [address] [phone] Health Maintenance Due Date Last Done Comments [...] Effective Dates Phone Address Type [employer] [facility] [id number] 2018-Present PPO documented as of this encounter
--- OUTSIDE RECORDS SUMMARY | 2019-09-13 07:35 | XMS REPORT | Summary of Care ---
:1990 Author Organization [facility] Address [address] [place] [address] Care Team Providers Name Role Phone Pcp, Patient Does Not Have A Primary Care Provider +1-000-00 0-0000 Reason for Visit Reason Comments LAB Auth/Cert Status Reason Specialty Diagnoses / Referred By Referred To Procedures Contact Contact Clinical Medical Diagnoses High-risk in first trimester 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 Nelson [facility] [place] [address] High-risk in first trimester; Phlebotomy 1, [facility] Lab Less than 8 weeks gestation of Lab-[address] [place] [address] Allergies Active Allergy Reactions Severity Noted [...] Navarro, Leeann Figueredo MD Visit Gynecology [address] [place] [address] DR. Nelson [place] [address] [phone] Name Type Priority Associated Diagnoses Date/Ti me ADC OR MIRIAM ONLY - LAB Routine High-risk in 01/28/2019 10:06 AM CDT RPR first trimester Less than 8 weeks gestation of RUBELLA SCREEN IGG LAB Routine High-risk in 01/28/2019 10:06 AM CDT first trimester Less than 8 weeks gestation of VZV ANTIBODY SCREEN LAB Routine High-risk i n 01/28/2019 10:06 AM CDT first trimester Less than 8 weeks gestation of URINE CULTURE LAB Routine High-risk in 01/18 10:10 AM CDT first trimester Less than 8 weeks gestation of Health Maintenance Due Date Last [...] Procedure Name Priority Date/Time Associated Comments Diagnosis CBC WITH DIFFERENTIAL Routine 01/28/2019 10:06 High-risk pregn jared Results for this AM CDT in first trimest er procedure are in Less than 8 weeks the result s gestation of section. ADC, CLC OR LCC ONLY Routine 01/28/2019 10:06 High-risk pregna ncy Results for this - HIV TYPE 1 AND 2 AM CDT in first trim yudelka procedure are in ANTIBODY SCREEN WITH Less than 8 weeks th e results P24 gestation of section. HCV ANTIBODY Routine 01/28/2019 10:06 High-risk Resu lts for this AM CDT in first trimest er procedure are in Less than 8 weeks the result s gestation of section. HEPATITIS B SURFACE Routine 01/28/2019 10:06 High-risk pregnan cy Results for this ANTIGEN AM CDT in first trimest er procedure are in Less than 8 weeks the result s gestation of section. CBC WITH DIFF Routine 01/28/2019 10:06 High-risk Res ults for this AM CDT in first trimest er procedure are in Less than 8 weeks the result s gestation of section. BASIC METABOLIC PANEL Routine 01/28/2019 10:06 High-risk pregn jared Results for this (NA, K, CL, CO2, AM CDT in first trimes ter procedure are in GLUCOSE, BUN, Less than 8 weeks the resul ts CREATININE, CA) gestation of section. GLUCOSE 1 HOUR POST Routine 01/28/2019 10:06 High-risk pregnan cy Results for this PRANDIAL AM CDT in first trimest er procedure are in Less than 8 weeks the result s gestation of section. documented in this encounter Results CBC WITH DIFFERENTIAL (01/28/2019 10:06 AM CDT) Pathologist Sig nature WBC 7.21 4.30 - 11.10 [facility] 10*3/L [facility] RBC 4.03 3.93 - 5.25 [facility] 10*6/[facility] HGB 11.4 (L) 11.6 - 15.0 [facility] g/dL [facility] HCT 35.9 35.7 - 45.2 % [facility] MCV 89.1 80.6 - 95.5 fL [facility] MCH 28.3 25.9 - 32.8 pg [facility] MCHC 31.8 31.6 - 35.1 [facility] g/dL [facility] RDW-SD 41.8 39.0 - 49.9 fL [facility] RDW-CV 12.9 12.0 - 15.5 % [facility] PLT 303 166 - 358 [facility] 10*3/L [facility] MPV 9.9 9.5 - 12.9 fL [facility] NRBC/100 WBC 0.0 0.0 - 10.0 /100 [facility] WBCs [facility] NRBC x10^3 <0.01 10*3/L [facility] GRAN MAT (NEUT) % 68.5 % [facility] IMM GRAN % 0.30 % [facility] LYMPH % 23.7 % [facility] MONO % 6.9 % [facility] EOS % 0.3 % [facility] BASO % 0.3 % [facility] GRAN MAT x10^3(ANC) 4.94 1.88 - 7.09 [facility] 10*3/uL [facility] IMM GRAN x10^3 <0.03 0.00 - 0.06 [facility] 10*3/uL [facility] LYMPH x10^3 1.71 1.32 - 3.29 [facility] 10*3/uL [facility] MONO x10^3 0.50 0.33 - 0.92 [facility] 10*3/uL [facility] EOS x10^3 <0.03 (L) 0.03 - 0.39 [facility] 10*3/uL [facility] BASO x10^3 <0.03 0.01 - 0.07 [facility] 10*3/uL [facility] Specimen Blood Performing Organization Address City/State/Zipcode Phone Number [facility] CLIA: [id number], [address] [place], [place] [address] BASIC METABOLIC PANEL (NA, K, CL, CO2, GLUCOSE, BUN, CREATININE, CA) (01/28/2019 10:06 AM CDT) NA 141 135 - 145 [facility] mmol/L [facility] K 3.9 3.5 - 5.0 [facility] mmol/L [facility] CL 107 98 - 108 mmol/L [facility] CO2 TOTAL 23 23 - 31 mmol/L [facility] AGAP 11 2 - 16 [facility] BUN 8 7 - 23 mg/dL [facility] GLUCOSE 104 70 - 110 mg/dL [facility] CREATININE 0.43 (L) 0.50 - 1.04 [facility] mg/dL [facility] CALCIUM 9.8 8.6 - 10.6 [facility] mg/dL [facility] eGFR Calculation 176.1 mL/min/1.73m2 [facility] (Non-[facility] [place]) eGFR Calculation 213.5 mL/min/1.73m2 [facility] () [facility] Specimen Blood Narrative Performed At Association of Glomerular Filtration Rate (GFR) [facility] and Staging of Kidney Disease* + + +- + | GFR (mL/min/1.73 m2)| With Kidney Damage|Without Kidney Damage + + +- + |>90| Stage one| Normal + + +- + |60-89|S tage two| Decreased GFR + + +- + |30-59|S tage three| Stage three + + +- + |15-29|S tage four | Stage four + + +- + |<15 (or dialysis)|Stage five | Stage five + + +- + *Each stage assumes the associated GFR level has been in effect for at least three months.Stages 1 to 5, with or without kidney disease, indicate chronic kidney disease . Notes: Determination of stages one and two (with eGFR >59mL/min/1.73 m2) requires estimation of kidney damage for at least three months as defined by structural or functional abnormalities of the kidney, manifested by either: Pathological abnormalities or Markers of kidney damage (including abnormalities in the composition of the blood or urine or abnormalities in imaging tests). Performing Organization Address [facility] Phone Number [facility] CLIA: [id number], [address] [place] [address] GLUCOSE 1 HOUR POST PRANDIAL (01/28/2019 10:06 AM CDT) [facility] Sig nature GLUC 1 HR 105 (L) 120 - 170 mg/dL [facility] Specimen Blood Performing Organization Address [facility] Phone Number [facility] CLIA: [id number], [address] [place], [place] [address] HEPATITIS B SURFACE ANTIGEN (01/28/2019 10:06 AM CDT) HBsAg HEPATITIS B Negative [facility] SURFACE ANTIGEN SERVICES NEGATIVE HBsAg 0.06 [facility] Semi-Quantitative SERVICES Specimen Blood Performing Organization Address City/State/Zipcode Phone Number [facility] CLIA: [id number], [address] [place], [place] [address] [facility] HCV ANTIBODY (01/28/2019 10:06 AM CDT) Pathologist Sig nature HCV Ab NEGATIVE [facility] HCV Semi-Quantitative 0.01 [facility] SERVICES Specimen Blood Performing Organization Address City/State/Zipcode Phone Number [facility] CLIA: [id number], [address] [place], [place] [address] [facility] ADC, CLC OR LCC ONLY - HIV TYPE 1 AND 2 ANTIBODY SCREEN WITH P24 (01/28/2019 10:06 AM CDT) Pathologist Sig nature HIV 1/2 AG/AB NON-REACTIVE Nonreactive [facility] Specimen Blood Performing Organization Address City/State/Zipcode Phone Number [facility] CLIA: [id number], [address] [place], [place] [address] documented in this encounter Visit Diagnoses Diagnosis High-risk in first trimester Less than 8 weeks gestation of state, incidental documented in this encounter documented as of this encounter"
--- OUTSIDE RECORDS SUMMARY | 2019-09-13 07:36 | XMS REPORT | Summary of Care ---
:1990 Author Organization [facility] Address [address] [place] [id number] Care Team Providers Name Role Phone Pcp, Patient Does Not Have A Primary Care Provider +[id number] 0-0000 Reason for Visit Reason Comments ROUTINE VISIT Encounter Details Date Type Department Care Team Description 06/16/2019 Routine [facility] Women's NavarroLeeann am, MD Supervision of high risk in th ird trimester (Primary Dx); Visit Healthcare- [address] [place] [address] 28 weeks g estation of ; Rose GAMEZ Back pain during ; [address] [place] [address], [facility] [address] Nausea and vomiting during jia or to 22 weeks gestation; [address] [place], [place] Sciatic pain, [place] [phone] Allergies Active Allergy Reactions Severity Noted Date Comments Fluticasone Propionate Anaphylaxis 01/05/2019 Morphine Hives 01/05/2019 documented as of this encounter (statuses as of 06/16/2019) Medications Medication Sig Dispensed Refills Start End Date Status Date vit Take by 0 Active calc,iron,folic mouth. ( VITAMIN ORAL) albuterol 90 Inhale 2 8.5 g 1 Active mcg/actuation Puffs every 6 9 inhaler (six) hours as needed for Wheezing or Shortness of Breath. famotidine (PEPCID) Take 1 tablet 30 tablet 3 Active 20 mg by mouth 2 0 tabletIndications: (two) times 24 weeks gestation daily. of , Gastroesophageal reflux disease, esophagitis presence not specified doxylamine-pyridoxin 1po@HS.If not 120 tablet 1 Active e, vit B6, effective,2 0 (DICLEGIS) 10-10 mg po@HS,if not per effective tabletIndications: 2po@hS&1po in Nausea and vomiting AM.If not during effective,2po prior to 22 weeks @HS,1po in gestation AM, & 1early PM. Max 4 tab/day. doxylamine-pyridoxin 1po@HS.If not 120 tablet 1 05/21 Discontinued e, vit B6, effective,2 02 06 (Reorde r) (DICLEGIS) 10-10 mg po@HS,if not per tablet effective 2po@hS&1po in AM.If not effective,2po @HS,1po in AM, & 1early PM. Max 4 tab/day. documented as of this encounter (statuses as of 06/16/2019) Active Problems Problem Noted Date Gastroesophageal reflux disease, esophagitis presence not specified 05/21/2019 28 weeks gestation of 05/21/2019 Supervision of high risk in third trimester 05/21/2019 Estimated Date of Delivery Comments Yes 09/08/2019 Based on Ultrasound documented as of this encounter (statuses as of 06/16/2019) Resolved Problems Problem Noted Date Resolved Date Nausea and vomiting during prior to 22 weeks 02/2005/21/2019 gestation documented as of this encounter (statuses as of 06/16/2019) Immunizations Name Administration Dates Next Due Influenza Virus Vaccine 02/20/2019 documented as of this encounter Social History Tobacco Use Types Packs/Day Years [...] Sign Reading Time Taken Comments Blood Pressure 97/61 06/16/2019 10:01 AM SENIOR MEDICAL BILLING SPECIALIST Pulse 88 06/16/2019 10:01 AM SENIOR MEDICAL BILLING SPECIALIST Temperature 36.8 C (98.3 F) 06/16/2019 10:01 AM SENIOR MEDICAL BILLING SPECIALIST Respiratory Rate 18 06/16/2019 10:01 AM SENIOR MEDICAL BILLING SPECIALIST Oxygen Saturation - - Inhaled Oxygen Concentration - - Weight 70.3 kg (155 lb) 06/16/2019 10:01 AM SENIOR MEDICAL BILLING SPECIALIST Height 157.5 cm (5' 2") 06/16/2019 10:01 AM SENIOR MEDICAL BILLING SPECIALIST Body Mass Index 28.35 06/16/2019 10:01 AM SENIOR MEDICAL BILLING SPECIALIST documented in this encounter Patient Instructions Patient InstructionsSweta Grimes MA - 06/16/2019 9:45 AM SENIOR MEDICAL BILLING SPECIALIST Sciatica Sciatica is a condition that causes pain in the lower back that spreads down into the buttock, hip, and leg. Sometimes the leg pain can happen without any back pain. Sciatica happens when a spinal nerve is irritated or has pressure put on it as comes out of the spinal canal in the lower back. This most often happens when a bulge or rupture of a nearby spinal disk presses on the nerve. Sciatica can also be caused by a narrowing of the spinal canal (spinal stenosis) or spasm of the muscle in the buttocks that the sciatic nerve passes through (pyriform muscle). Sciatica is also called lumbar radiculopathy. Sciatica may begin after a sudden twisting or bending force, such as in a car accident. Or it can happen after a simple awkward movement. In either case, muscle spasm often also happens. Muscle spasm makes the pain worse. A healthcare provider makes a diagnosis of sciatica from your symptoms and a physical exam. Unless you had an injury from a car accident or fall, you usually wont have X-rays taken at this time. This is because the nerves and disks in your back cant be seen on an X-ray. If the provider sees signs of a compressed nerve, you will need to schedule an MRI scan as an outpatient. Signs of a compressed nerve include loss of strength in a leg. Most sciatica gets better with medicine, exercise, and physical therapy. If your symptoms continue after at least 3 months of medical treatment, you may need surgery or injections to your lower back. Home care Follow these tips when caring for yourself at home: You may need to stay in bed the first few days. But as soon as possible, begin sitting up or walking. This will help you avoid problems that come from staying in bed for long periods. When in bed, try to find a position that is comfortable. A firm mattress is best. Try lying flat on your back with pillows under your knees. You can also try lying on your side with your knees bent up toward your chest and a pillow between your knees. Avoid sitting for long periods. This puts more stress on your lower back than standing or walking. Use heat from a hot shower, hot bath, or heating pad to help ease pain. Massage can also help. You can also try using an ice pack. You can make your own ice pack by putting ice cubes in a plastic bag. Wrap the bag in a thin towel. Try both heat and cold to see which works best. Use the method that feels best for 20 minutes several times a day. You may use acetaminophen or ibuprofen to ease pain, unless another pain medicine was prescribed.Note: If you have chronic liver or kidney disease, talk with your healthcare provider before taking these medicines. Also talk with your provider if youve had a stomach ulcer or gastrointestinal bleeding. Use safe lifting methods. Dont lift anything heavier than 15 pounds until all of the pain is gone. Follow-up care Follow up with your healthcare provider, or as advised. You may need physical therapy or additional tests. If X-rays were taken, a radiologist will look at them. You will be told of any new findings that mayaffect your care. When to seek medical advice Call your healthcare provider right awayif any of these occur: Pain gets worse even after taking prescribed medicine Weakness or numbness in 1 or both legs or hips Numbness in your groin or genital area You cant control your bowel or bladder Fever Redness or swelling over your back or spine Date Last Reviewed: 12/19/201519995072-1395 [employer]. [address] [place] [address], [place] [address]. All rights reserved. This information is not intended as a substitute for professional medical care. Always follow your healthcare professional's instructions. OR MEDICAL BILLING SPECIALIST documented in this encounter Progress Notes Leeann Navarro MD - 06/16/2019 9:45 AM CST Chief complaint: Chief Complaint Patient presents with ROUTINE VISIT HPI Denies contractions, vaginal bleeding, LOF, dysuria, or PIH symptoms. + active FM. Histories OB History Para Term AB Living 1 0 0 0 0 0 SAB TAB Ectopic Multiple Live Births 0 0 0 0 0 # Outcome Date GA Lbr Nba/2nd Weight Sex Delivery Anes PTL Lv 1 Current Past Medical History: Diagnosis Date Anemia Asthma Breast disorder Pain Kidney disease Pyelonephritis Ovarian cyst 2012 Family History Problem Relation Age of Onset [...] file Gets together: Not on file Attends gnosticist service: Not on file Active member of [...] Social History Narrative No exposure to cats Mormonism preference: Church Denies domestic violence or abuse Social History Substance and Sexual Activity Sexual Activity Yes Partners: Male Labs No new labs Radiology No new radiology. Allergies Sindy is allergic to flonase [fluticasone propionate] and morphine. Medications Sindy has a current medication list which includes the following prescription(s): doxylamine-pyridoxine (vit b6), famotidine, albuterol, and vit calc,iron,folic. Review of Systems Constitutional: Negative for chills, fatigue and fever. HENT: Negative for congestion, rhinorrhea, sneezing and sore throat. Eyes: Negative for photophobia and visual disturbance. Respiratory: Negative for cough, chest tightness, shortness of breath and wheezing. Cardiovascular: Negative for chest pain and palpitations. Gastrointestinal: Negative for abdominal distention, abdominal pain, constipation, diarrhea, nausea and vomiting. Genitourinary: Negative for dysuria, urgency, frequency, vaginal bleeding and vaginal discharge. Musculoskeletal: Positive for back pain. Sometimes has lower back pain, sharp shooting pain the right inguinal area, buttock pain shooting down the leg, sometimes on the left side and sometimes on the right side. Adequate hydration Skin: Negative for rash. Neurological: Negative for syncope and headaches. Hematological: Does not bruise/bleed easily. BP 97/61 (BP Location: Left arm, Patient Position: Sitting, BP CUFF SIZE: Adult Small) | Pulse 88 | Temp 36.8 C (98.3 F) (Oral) | Resp 18 | Ht 5' 2" (1.575 m) | Wt 155 lb (70.3 kg) | LMP 11/22/2018 (Exact Date) | BMI 28.35 kg/m Pregravid BMI: 29.1 Physical Exam Vitals reviewed. Constitutional: She is oriented to person, place, and time. She appears well- developed and well-nourished. Cardiovascular: Regular rate and rhythm. Pulmonary/Chest: Normal inspiratory effort. Abdominal: Abdomen is soft. No tenderness present. No hernia palpated or inspected. Neuro/Psychiatric: She has a normal mood and affect. She is oriented to person, place, and time. Shehas normal strength. + straight leg raised on left leg, negative on right leg Skin: Skin normal. No rash present. Assessment/Plan See OB Summary Return to clinic in 2 weeks. Reviewed patient instructions and provided printed copy. Activity restrictions: As tolerated at 28w0d This visit did not involve counseling and coordination that comprised more than 50% of the visit time. Leeann Navarro MD 06/16/2019 10:43 AM documented in this encounter Plan of Treatment Date Type Specialty Care Team Description 06/30/2019 Routine Obstetrics & Ninfa Diane, Visit Gynecology PA-C [address] [phone] Health Maintenance Due Date Last Done Comments DTaP,Tdap,and Td Vaccines (1 - 10/18/2002 Tdap) PAP SMEAR 01/05/2022 01/05/2019 INFLUENZA VACCINE Completed 02/20/2019 PNEUMOCOCCAL 0-64 YEARS COMBINED Aged Out No longer eligible based on SERIES patient's age to complete this topic documented as of this encounter Procedures Procedure Name Priority Date/Time Associated Diagnosis Comme nts POCT URINALYSIS W/O Routine 06/16/2019 28 weeks gestation of Results for this SPECIFIC GRAVITY procedure are in the Back pain during results sec tion. documented in this encounter Results POCT URINALYSIS W/O SPECIFIC GRAVITY (06/16/2019) Pathologist Sig nature POCT PH U n/a 5 - 8 mg/dl POCT U LEUK EST n/a Negative - Negative POCT U NIT n/a Negative - Negative POCT U PROT neg Negative - Negative POCT U GLU neg Negative - Negative POCT U KETONE n/a Negative - Negative POCT U BLD n/a Negative - Negative Specimen Urine - URINE, CLEAN CATCH documented in this encounter Visit Diagnoses Diagnosis Supervision of high risk in th ird trimester - Primary Unspecified high-risk 28 weeks gestation of state, incidental Back pain during Nausea and vomiting during jia or to 22 weeks gestation Sciatic pain, left documented in this encounter documented as of this encounter
--- OUTSIDE RECORDS SUMMARY | 2019-09-13 07:36 | XMS REPORT | Summary of Care ---
:1990 Author Organization [facility] Address [address] [place] [id number] Care Team Providers Name Role Phone Pcp, Patient Does Not Have A Primary Care Provider +1-000-00 0-0000 Reason for Visit Reason Comments ROUTINE VISIT Encounter Details Date Type Department Care Team Description 06/30/2019 Routine [facility] Women's Ninfa Diane, Supervision of high risk in third trimester (Primary Dx); Visit Healthcare- PA-C 30 weeks gestation of ; [address] Need for Tdap vaccination [address] [place] [address], [address] [facility] [address] [place] [phone] Allergies Active Allergy Reactions Severity Noted Date Comments Fluticasone Propionate Anaphylaxis 01/05/2019 Morphine Hives 01/05/2019 documented as of this encounter (statuses as of 06/30/2019) Medications Medication Sig Dispensed Refills Start Date End Date Status vit Take by mouth. 0 A ctive calc,iron,folic ( VITAMIN ORAL) albuterol 90 Inhale 2 Puffs 8.5 g 1 01/26/2019 A ctive mcg/actuation inhaler every 6 (six) hours as needed for Wheezing or Shortness of Breath. famotidine (PEPCID) 20 Take 1 tablet by 30 tablet 3 05/21/2019 Active mg tabletIndications: mouth 2 (two) 24 weeks gestation of times daily. , Gastroesophageal reflux disease, esophagitis presence not specified doxylamine-pyridoxine, 1po@HS.If not 120 tablet 1 06/16/2019 Active vit B6, (DICLEGIS) effective,2 10-10 mg per po@HS,if not tabletIndications: effective Nausea and vomiting 2po@hS&1po in during prior AM.If not to 22 weeks gestation effective,2po@HS ,1po in AM, & 1early PM. Max 4 tab/day. documented as of this encounter (statuses as of 06/30/2019) Active Problems Problem Noted Date Gastroesophageal reflux disease, esophagitis presence not specified 05/21/2019 28 weeks gestation of 05/21/2019 Supervision of high risk in third trimester 05/21/2019 Estimated Date of Delivery Comments Yes 09/08/2019 Based on Ultrasound documented as of this encounter (statuses as of 06/30/2019) Resolved Problems Problem Noted Date Resolved Date Nausea and vomiting during prior to 22 weeks 02/2005/21/2019 gestation documented as of this encounter (statuses as of 06/30/2019) Immunizations Name Administration Dates Next Due Influenza Virus Vaccine 02/20/2019 TDAP (ADACEL) VACCINE 06/30/2019 documented as of this encounter Social History [...] Sign Reading Time Taken Comments Blood Pressure 100/63 06/30/2019 4:16 PM DIVISION ENGINEER Pulse 78 06/30/2019 4:16 PM DIVISION ENGINEER Temperature 36.8 C (98.2 F) 06/30/2019 4:16 PM DIVISION ENGINEER Respiratory Rate 18 06/30/2019 4:16 PM DIVISION ENGINEER Oxygen Saturation - - Inhaled Oxygen Concentration - - Weight 72.1 kg (159 lb) 06/30/2019 4:16 PM DIVISION ENGINEER Height 157.5 cm (5' 2") 06/30/2019 4:16 PM DIVISION ENGINEER Body Mass Index 29.08 06/30/2019 4:16 PM DIVISION ENGINEER documented in this encounter Progress Notes Ninfa Diane PA-C - 06/30/2019 4:15 PM CST Chief complaint: Chief Complaint Patient presents with ROUTINE VISIT HPI Sindy Chavez is a 28 year old female @ 30w0d coming in for PN visit. Denies contractions, vaginal bleeding, LOF, dysuria, or [...] file Gets together: Not on file Attends taoism service: Not on file Active member of [...] Social History Narrative No exposure to cats Baptism preference: Yazidi Denies domestic violence or abuse Social History Substance and Sexual Activity Sexual Activity Yes Partners: Male Labs none Radiology none Allergies Sindy is allergic to flonase [fluticasone propionate] and morphine. Medications Sindy has a current medication list which includes the following prescription(s): doxylamine-pyridoxine (vit b6), famotidine, albuterol, and vit calc,iron,folic. Review of Systems Constitutional: Negative for appetite change, fatigue and fever. HENT: Negative for rhinorrhea and sore throat. Eyes: Negative for pain and itching. Respiratory: Negative for cough, chest tightness and shortness of breath. Breasts: Negative for discharge, mass and pain. Cardiovascular: Negative for chest pain, palpitations and leg swelling. Gastrointestinal: Negative for abdominal pain, constipation, diarrhea and nausea. Genitourinary: Negative for bladder incontinence, dysuria, vaginal discharge, difficulty urinating, vaginal pain and pelvic pain. Musculoskeletal: Negative for gait problem and myalgias. Skin: Negative for rash. Neurological: Negative for dizziness and headaches. Psychiatric/Behavioral: Negative for suicidal ideas. The patient is not nervous/anxious. Endocrine: Negative for hair loss. LMP 11/22/2018 (Exact Date) Pregravid BMI: 29.1 Physical Exam Vitals reviewed. Constitutional: She is oriented to person, place, and time. She appears well- developed and well-nourished. Neck: No mass. No thyromegaly palpated. No neck adenopathy. Cardiovascular: Regular rate and rhythm. Pulmonary/Chest: Normal inspiratory effort. Abdominal: Abdomen is soft. No tenderness present. No hernia palpated or inspected. Neuro/Psychiatric: She has a normal mood and affect. She is oriented to person, place, and time. Skin: Skin normal. Lymphadenopathy: No neck adenopathy present. No axillary adenopathy present. No inguinal adenopathy present. Assessment/Plan SEE OB SUMMARY Return to clinic in 2 weeks. Discussed treatment options. Reviewed patient instructions and provided printed copy. Activity restrictions: As tolerated This visit did not involve counseling and coordination that comprised more than 50% of the visit time. Ninfa Diane PA-C 06/30/2019 4:08 PM SION ENGINEER documented in this encounter Plan of Treatment Date Type Specialty Care Team Description 07/14/2019 Routine Obstetrics & Navarro, Leeann Figueredo MD Visit Gynecology [address] [place] [address] [place] [place], [place] [address] [phone] Health Maintenance Due Date Last Done Comments DTaP,Tdap,and Td Vaccines (1 - 10/18/2002 Tdap) PAP SMEAR 01/05/2022 01/05/2019 INFLUENZA VACCINE Completed 02/20/2019 PNEUMOCOCCAL 0-64 YEARS COMBINED Aged Out No longer eligible based on SERIES patient's age to complete this topic documented as of this encounter Procedures Procedure Name Priority Date/Time Associated Diagnosis Comme nts TDAP (ADACEL) Routine 06/30/2019 4:40 Need for Tdap IMMUNIZATION PM DIVISION ENGINEER vaccination POCT URINALYSIS W/O Routine 06/30/2019 Supervision of high R esults for this SPECIFIC GRAVITY risk in proced ure are in third trimester the results 30 weeks gestation section. of documented in this encounter Results POCT URINALYSIS W/O SPECIFIC GRAVITY (06/30/2019) Pathologist Sig nature POCT PH U n/a [...] th ird trimester - Primary Unspecified high-risk 30 weeks gestation of state, incidental Need for Tdap vaccination Need for prophylactic vaccination with c ombined [id number] (DTP) vaccine documented in this encounter documented as of this encounter
--- OUTSIDE RECORDS SUMMARY | 2019-09-13 07:36 | XMS REPORT | Summary of Care ---
:1990 Author Organization [facility] Address [address] [place] [address] Care Team Providers Name Role Phone Pcp, Patient Does Not Have A Primary Care Provider +1-000-00 0-0000 Encounter Details Date Type Department Care Team Description 06/12/2019 Orders Only [facility] Doctor Unassigned, No [address] [facility] Name [place], [place] [id number] [place] [phone] Allergies Active Allergy Reactions Severity Noted Date Comments Fluticasone Propionate Anaphylaxis 01/05/2019 Morphine Hives 01/05/2019 documented as of this encounter (statuses as of 06/12/2019) Medications Medication Sig Dispensed Refills Start Date End Date Status vit Take by mouth. 0 A ctive calc,iron,folic ( VITAMIN ORAL) albuterol 90 Inhale 2 Puffs 8.5 g 1 01/26/2019 A ctive mcg/actuation inhaler every 6 (six) hours as needed for Wheezing or Shortness of Breath. doxylamine-pyridoxine, 1po@HS.If not 120 tablet 1 01/29/2019 Active vit B6, (DICLEGIS) effective,2 10-10 mg per tablet po@HS,if not effective 2po@hS&1po in AM.If not effective,2po@HS ,1po in AM, & 1early PM. Max 4 tab/day. famotidine (PEPCID) 20 Take 1 tablet by 30 tablet 3 05/21/2019 Active mg tabletIndications: mouth 2 (two) 24 weeks gestation of times daily. , Gastroesophageal reflux disease, esophagitis presence not specified documented as of this encounter (statuses as of 06/12/2019) Active Problems Problem Noted Date Gastroesophageal reflux disease, esophagitis presence not specified 05/21/2019 24 weeks gestation of 05/21/2019 Supervision of high risk in second trimester 05/21/2019 Estimated Date of Delivery Comments Yes 09/08/2019 Based on Ultrasound documented as of this encounter (statuses as of 06/12/2019) Resolved Problems Problem Noted Date Resolved Date Nausea and vomiting during prior to 22 weeks 02/2005/21/2019 gestation documented as of this encounter (statuses as of 06/12/2019) Immunizations Name Administration Dates Next Due Influenza [...] Treatment Date Type Specialty Care Team Description 06/12/2019 Binder Selector Visit Phlebotomy Leeann Navarro MD [address] [place], [place] [address] [address] [address] [phone] Pomary ann, [facility] 06/18/2019 Routine Visit Obstetrics & Ninfa Diane, Gynecology PA-C [address] [place] [address] [phone] Health Maintenance Due Date Last Done Comments DTaP,Tdap,and Td Vaccines (1 - 10/18/2002 Tdap) PAP SMEAR 01/05/2022 01/05/2019 INFLUENZA VACCINE Completed 02/20/2019 PNEUMOCOCCAL 0-64 YEARS COMBINED Aged Out No longer eligible based on SERIES patient's age to complete this topic documented as of this encounter Procedures Procedure Name Priority Date/Time Associated Diagnosis Comme nts ASSIGNMENT OF BENEFITS Routine 06/12/2019 8:35 AM REGIONAL PLANNER documented in this encounter Results Not on filedocumented in this encounter Insurance Payer Benefit Plan / Group Subscriber ID Effective Dates Phone Address Type [employer] [facility] [id number] 2018-Present PPO documented as of this encounter
--- OUTSIDE RECORDS SUMMARY | 2019-09-13 07:36 | XMS REPORT | Summary of Care ---
:1990 Author Organization [facility] Address [address] [place] [address] Care Team Providers Name Role Phone Pcp, Patient Does Not Have A Primary Care Provider +[id number] 0-0000 Reason for Visit Reason Comments LAB WORK Auth/Cert Status Reason Specialty Diagnoses / Procedures Referred By Jackson muñoz Referred To Contact Phlebotomy Diagnoses 24 weeks gestation of Adc Pob Lab Draw Procedures ADC HIV Pre CBC With Diff Glucose 1 Hr Professional Office Building [address] [place] [address] , [address] [place] [address] Phone: Fax: Encounter Details Date Type Department Care Team Description 06/12/2019 Systems Integration Manager Visit [facility] Leeann Navarro MD [address] [place] [address] [address] [place] [address] 24 weeks gestation Professional Office Pob, Adc Lab Main of Building Phlebotomy Lab Professional Office Building [address] [place] [address] , [address] [place] [address] Allergies Active Allergy Reactions Severity [...] Treatment Date Type Specialty Care Team Description 06/18/2019 Routine Obstetrics & Ninfa Diane, Visit Gynecology [facility] [address] [address] Name Type Priority Associated Diagnoses Date/Ti me ADC OR MIRIAM ONLY - LAB Routine 24 weeks gestation of 06/12/2019 9:51 AM CULTURE MEDIA LABORATORY ASSISTANT RPR Health Maintenance Due Date Last Done Comments DTaP,Tdap,and Td Vaccines (1 - 10/18/2002 Tdap) PAP SMEAR 01/05/2022 01/05/2019 INFLUENZA VACCINE Completed 02/20/2019 PNEUMOCOCCAL 0-64 YEARS COMBINED Aged Out No longer eligible based on SERIES patient's age to complete this topic documented as of this encounter Procedures Procedure Name Priority Date/Time Associated Comments Diagnosis HIV 1/2 AG-AB WITH Routine 06/12/2019 9:51 24 weeks gestation Results for this REFLEX AM CULTURE MEDIA LABORATORY ASSISTANT of procedure are i n the results section. CBC WITH DIFFERENTIAL Routine 06/12/2019 9:51 24 weeks gestat ion Results for this AM CULTURE MEDIA LABORATORY ASSISTANT of procedure are i n the results section. HB ABO GROUPING Routine 06/12/2019 9:51 24 weeks gestation Re sults for this AM CULTURE MEDIA LABORATORY ASSISTANT of procedure are i n the results section. CBC WITH DIFFERENTIAL Routine 06/12/2019 9:51 24 weeks gestat ion Results for this AM CULTURE MEDIA LABORATORY ASSISTANT of procedure are i n the results section. GLUCOSE 1 HOUR POST Routine 06/12/2019 9:51 24 weeks gestatio n Results for this PRANDIAL AM CULTURE MEDIA LABORATORY ASSISTANT of procedure are i n the results section. documented in this encounter Results CBC WITH DIFFERENTIAL (06/12/2019 9:51 AM CULTURE MEDIA LABORATORY ASSISTANT) Pathologist Sig nature WBC 7.05 4.30 - 11.10 [facility] 10*3/L [facility] RBC 3.46 (L) 3.93 - 5.25 [facility] 10*6/L [facility] HGB 10.6 (L) 11.6 - 15.0 [facility] g/dL [facility] HCT 32.0 (L) 35.7 - 45.2 % [facility] MCV 92.5 80.6 - 95.5 fL [facility] MCH 30.6 25.9 - 32.8 pg [facility] MCHC 33.1 31.6 - 35.1 [facility] g/dL [facility] RDW-SD 46.4 39.0 - 49.9 fL [facility] RDW-CV 13.7 12.0 - 15.5 % [facility] PLT 242 166 - 358 [facility] 10*3/L [facility] MPV 10.2 9.5 - 12.9 fL [facility] NRBC/100 WBC 0.0 0.0 - 10.0 /100 [facility] WBCs [facility] NRBC x10^3 <0.01 10*3/L [facility] GRAN MAT (NEUT) % 74.9 % [facility] IMM GRAN % 0.70 % [facility] LYMPH % 18.4 % [facility] MONO % 5.4 % [facility] EOS % 0.3 % [facility] BASO % 0.3 % [facility] GRAN MAT x10^3(ANC) 5.28 1.88 - 7.[address]/uL [facility] IMM GRAN x10^3 0.05 0.00 - 0.[address]uL [facility] LYMPH x10^3 1.30 (L) 1.32 - 3.29 [facility] 10*3/uL [facility] MONO x10^3 0.38 0.33 - 0.92 [facility] 10*3/uL [facility] EOS x10^3 <0.03 (L) 0.03 - 0.39 [facility] 103/uL [facility] BASO x10^3 <0.03 0.01 - 0.[address]/uL [facility] Specimen Blood - ARM, LEFT Performing Organization Address City/[facility]/Zipcode Phone Number [facility] CLIA: [id number], [address] [place], [place] [address] HIV 1/2 AG-AB WITH REFLEX (06/12/2019 9:51 AM CULTURE MEDIA LABORATORY ASSISTANT) Pathologist Sig nature HIV 1/2 Ag-Ab with Negative Negative [facility] Reflex HOSPITAL LAB[facility]ORY HIV Semi-quantitative 0.09 [facility] Specimen Blood - ARM, LEFT Narrative Performed At Non-reactive for HIV-1 antigen and HIV-1/HIV-2 [facility] antibodies. No laboratory evidence of HIV infection. Repeat in 2-4 weeks if acute HIV infection is suspected. Performing Organization Address City/[facility]/Zipcode Phone Number [facility] CLIA: [id number], [address] [place] [address] GLUCOSE 1 HOUR POST PRANDIAL (06/12/2019 9:51 AM CULTURE MEDIA LABORATORY ASSISTANT) Pathologist Sig nature GLUC 1 HR 115 (L) 120 - 170 mg/dL [facility] Specimen Blood - ARM, LEFT Performing Organization Address City/[facility]/Zipcode Phone Number [facility] CLIA: [id number], [address] [place] [address] WORKUP, BLOOD BANK (06/12/2019 9:51 AM CULTURE MEDIA LABORATORY ASSISTANT) Pathologist Sig nature ABO & RH O Positive LAB Comment: Performed at [facility] Laboratory Services - [facility] Blood Bank [address] [place] [phone] Toll Free: [phone] CLIA No. [id number] IAT Negative LAB Comment: Performed at [facility] Laboratory [facility] - [facility] Blood Bank [address] [place] [phone] Toll Free: [phone] CLIA No. [id number] Specimen Blood - [facility] Performing Organization Address City/[facility] Number [facility] documented in this encounter Visit Diagnoses Diagnosis 24 weeks gestation of state, incidental documented in this encounter documented as of this encounter
--- OUTSIDE RECORDS SUMMARY | 2019-09-13 07:37 | XMS REPORT | Summary of Care ---
:1990 Author Organization [facility] Address [address] [place] [address] Care Team Providers Name Role Phone Pcp, Patient Does Not Have A Primary Care Provider +1-000-00 0-0000 Reason for Visit Reason Comments ULTRASOUND (Routine) Status Reason Specialty Diagnoses / Referred By Referred To Procedures Contact Contact Closed Maternal Diagnoses 34 weeks gestation of Supervision of high risk in third trimester Ninfa Diane, Medicine Procedures CONSULT MATERNAL MEDICINE ULTRASOUND Preferred Location: [address] [place] [address] Encounter Details Date Type Department Care Team Description 08/07/2019 Ux Specialist Visit [facility] Women's MilagrosDidier morales MD [address] [facility] [id number] [place] [address] Uterine size-date [facility] Ultrasound, Adc Mfm discrepancy in third [address] [place] [address] [address] [place] [address] Allergies Active Allergy Reactions Severity Noted Date Comments Fluticasone Propionate Anaphylaxis 01/05/2019 Morphine Hives 01/05/2019 documented as of this encounter (statuses as of 08/07/2019) Medications Medication Sig Dispensed Refills Start Date [...] as of this encounter (statuses as of 08/07/2019) Active Problems Problem Noted Date Gastroesophageal reflux disease, esophagitis presence not specified 05/21/2019 32 weeks gestation of 05/21/2019 Supervision of high risk in third trimester 05/21/2019 Estimated Date of Delivery Comments Yes 09/08/2019 Based on Ultrasound documented as of this encounter (statuses as of 08/07/2019) Resolved Problems Problem Noted Date Resolved Date Nausea and vomiting during prior to 22 weeks 02/2005/21/2019 gestation documented as of this encounter (statuses as of 08/07/2019) Immunizations Name Administration Dates Next Due Influenza [...] Treatment Date Type Specialty Care Team Description 08/12/2019 Routine Obstetrics & Nvaarro, Leeann Figueredo MD Visit Gynecology [address] [place] [address] DR. Nelson MANDAN, [facility] 15 [phone] Health Maintenance Due Date Last Done Comments PAP SMEAR 01/05/2022 01/05/2019 DTaP,Tdap,and Td Vaccines (2 - Td) 06/30/2029 06/30/2019 INFLUENZA VACCINE Completed 02/20/2019 PNEUMOCOCCAL 0-64 YEARS COMBINED Aged Out No longer eligible based on SERIES patient's age to complete this topic documented as of this encounter Results Not on filedocumented in this encounter Visit Diagnoses Diagnosis Uterine size-date discrepancy in third t rimester Uterine size date discrepancy, antepartu m condition or complication documented in this encounter documented as of this encounter
--- OUTSIDE RECORDS SUMMARY | 2019-09-13 07:37 | XMS REPORT | Summary of Care ---
:1990 Author Organization [facility] Address [address] [place] [address] Care Team Providers Name Role Phone Pcp, Patient Does Not Have A Primary Care Provider +1-000-00 0-0000 Reason for Visit Reason Comments ROUTINE VISIT Encounter Details Date Type Department Care Team Description 08/11/2019 Telemedicine Visit [facility] Women's Navarro, Leeann Figueredo MD Supervision of high risk in th ird trimester (Primary Dx); [facility]- [address] [place] [address] 36 weeks g estation of [address], [place] [address] [address] [place] [phone] Allergies Active Allergy Reactions Severity Noted Date Comments Fluticasone Propionate Anaphylaxis 01/05/2019 Morphine Hives 01/05/2019 documented as of this encounter (statuses as of 08/11/2019) Medications Medication Sig Dispensed Refills Start Date [...] as of this encounter (statuses as of 08/11/2019) Active Problems Problem Noted Date Gastroesophageal reflux disease, esophagitis presence not specified 05/21/2019 36 weeks gestation of 05/21/2019 Supervision of high risk in third trimester 05/21/2019 Estimated Date of Delivery Comments Yes 09/08/2019 Based on Ultrasound documented as of this encounter (statuses as of 08/11/2019) Resolved Problems Problem Noted Date Resolved Date Nausea and vomiting during prior to 22 weeks 02/2005/21/2019 gestation documented as of this encounter (statuses as of 08/11/2019) Immunizations Name Administration Dates Next Due Influenza [...] Signs Not on filedocumented in this encounter Progress Notes Leeann Navarro MD - 08/11/2019 9:30 AM CDT TELEHEALTH NOTE Verbal consent obtained from Patient: Sindy Chavez for telehealth services provided below. Communication with patient was conducted via Telephone. Location of Patient: Home Location of Provider: Office Date of Service: 08/11/2019 Chief Complaint: routine visit HPI: Sindy Chavez is a 28 year old female here for routine visit. Denies vaginal bleeding,LOF, dysuria, or PIH symptoms. + active FM. Irregular contractions. + pelvic discomforts when ambulating Past Medical History: Diagnosis Date Anemia Asthma Breast disorder Pain Kidney disease 2017 Pyelonephritis Ovarian cyst 2011 MEDICATIONS: No outpatient medications have been marked as taking for the 08/11/19 encounter (Telemedicine Visit) with Leeann Navarro MD. ROS Denies fever, chills, chest pain, SOB, constipation, diarrhea, nausea, vomiting. Pain score: 2 TELEHEALTH EXAM Alert and answering/asking questions appropriately ASSESSMENT/ PLAN Sindy Chavez is a 28 year old female with PMH as above presenting with: 1. Supervision of high risk in third trimester 2. 36 weeks gestation of See OB Summary Discussed about COVID-19/flu precautions. Social distancing, frequent hand washings, and to follow CDC recommendations discussed. Indications for testing discussed. After visit summary (AVS ) documentation will be available through [facility] for this encounter. Leeann Navarro MD documented in this encounter Plan of Treatment Health Maintenance Due Date Last Done Comments PAP SMEAR 01/05/2022 01/05/2019 DTaP,Tdap,and Td Vaccines (2 - Td) 06/30/2029 06/30/2019 INFLUENZA VACCINE Completed 02/20/2019 PNEUMOCOCCAL 0-64 YEARS COMBINED Aged Out No longer eligible based on SERIES patient's age to complete this topic documented as of this encounter Results Not on filedocumented in this encounter Visit Diagnoses Diagnosis Supervision of high risk in th ird trimester - Primary Unspecified high-risk 36 weeks gestation of state, incidental documented in this encounter ([place]) [place] [address] documented as of this encounter
--- OUTSIDE RECORDS SUMMARY | 2019-09-13 07:37 | XMS REPORT | Summary of Care ---
:1990 Author Organization [facility] Address [address] [place] [id number] Care Team Providers Name Role Phone Pcp, Patient Does Not Have A Primary Care Provider +[id number] 0-0000 Reason for Visit Reason Comments ROUTINE VISIT Encounter Details Date Type Department Care Team Description 07/14/2019 Routine [facility] Women's NavarroLeeann am, MD Supervision of high risk in th ird trimester (Primary Dx); Visit Healthcare- [address] [place] [address] 32 weeks g estation of [address], [place] [address] [address] [place] [phone] Allergies Active Allergy Reactions Severity Noted Date Comments Fluticasone Propionate Anaphylaxis 01/05/2019 Morphine Hives 01/05/2019 documented as of this encounter (statuses as of 07/14/2019) Medications Medication Sig Dispensed Refills Start Date [...] as of this encounter (statuses as of 07/14/2019) Active Problems Problem Noted Date Gastroesophageal reflux disease, esophagitis presence not specified 05/21/2019 32 weeks gestation of 05/21/2019 Supervision of high risk in third trimester 05/21/2019 Estimated Date of Delivery Comments Yes 09/08/2019 Based on Ultrasound documented as of this encounter (statuses as of 07/14/2019) Resolved Problems Problem Noted Date Resolved Date Nausea and vomiting during prior to 22 weeks 02/2005/21/2019 gestation documented as of this encounter (statuses as of 07/14/2019) Immunizations Name Administration Dates Next Due Influenza [...] Sign Reading Time Taken Comments Blood Pressure 105/71 07/14/2019 3:56 PM UNDERWRITING SUPPORT SPECIALIST Pulse 88 07/14/2019 3:56 PM UNDERWRITING SUPPORT SPECIALIST Temperature 36.8 C (98.2 F) 07/14/2019 3:56 PM UNDERWRITING SUPPORT SPECIALIST Respiratory Rate 18 07/14/2019 3:56 PM UNDERWRITING SUPPORT SPECIALIST Oxygen Saturation - - Inhaled Oxygen Concentration - - Weight 72.6 kg (160 lb) 07/14/2019 3:56 PM UNDERWRITING SUPPORT SPECIALIST Height 157.5 cm (5' 2") 07/14/2019 3:56 PM UNDERWRITING SUPPORT SPECIALIST Body Mass Index 29.26 07/14/2019 3:56 PM UNDERWRITING SUPPORT SPECIALIST documented in this encounter Patient Instructions Patient InstructionsAashish Abdi - 07/14/2019 4:15 PM CST Tailor Sit, Trunk Turn for Back Pain During Before trying these exercises, talk to your healthcare provider to make sure they are safe for you. Ask your healthcare provider how many times to do each exercise. Tailor sit Trunk turns Tailor sit This exercise makes your thigh, pelvic, and hip muscles more flexible. 1. Sit on the floor with the soles of your feet together. Your back should be straight. 2. Gently lean forward until you feel a mild stretch inyour hip and thigh muscles. Your back should remain straight. Dont push down on your legs with your hands. 3. Hold and count to 5, then relax. Trunk turns This helps make your trunk (from your shoulders to your hips) more flexible. 1. Sit on the floor with your legs crossed. Your back should be straight. 2. Put your left hand on your right knee. Rest your right hand on the floor to support yourself and help you balance. 3. Slowly twist right. To do this, turn your head, shoulders, and chest as far right as you comfortably can. Keep your hips, knees, and feet in place. 4. Hold for 5 counts. Then change sides and slowly twist left. Trendrating last reviewed this educational content on 06/20/201719992995-6342 [employer]. [address] [place] [address], [place] [address]. All rights reserved. This information is not intended as a substitute for professional medical care. Always follow your healthcare professional's instructions. Relieving Back Pain During : Wall Stretch, Body Bend Before trying these exercises, talk to your healthcare provider to make sure they are safe for you. Ask your healthcare provider how many times to do each exercise. Wall stretch Body bend Wall stretch This strengthens and loosens the muscles in your upper back: 1. Lean against a wall with a firm pillow or rolled towel under your shoulder blades. Your feet should be about 12 inches from the wall and shoulder-width apart. Point your chin down. 2. Breathe in. Push your shoulders, neck, and head against the wall. You will feel a stretch in yourshoulders. 3. Hold for 5 counts. Then breathe out, and relax your shoulders and neck. Body bend This strengthens your back and buttocks muscles: 1. Stand with your legs shoulder-width apart. Put your hands on your upper thighs and bend your knees slightly. 2. Slowly bend forward at the hips. Push your hips back and keep your shoulders up. Make sure your back is straight. Youll feel a stretch in your upper thighs. Youll also feel your back muscles holding you in position. 3. Hold for 5 counts, then straighten. Trendrating last reviewed this educational content on 06/20/201719990263-3833 [employer]. [address] [place] [address]. All rights reserved. This information is not intended as a substitute for professional medical care. Always follow your healthcare professional's instructions. Back Pain During : Moving Safely Learning the proper ways to bend, lift, and carry objects may help relieve back strain. It will alsohelp you protect your back after your baby is born. Remember, if youre having trouble protecting your back, its OK to ask the people around you for help! Bending Lifting Carrying Bending To protect your back as you bend: Put 1 foot slightly in front of the other. Bend at the knees and hips, pushing your hips backward. Keep your upper body as straight as you can. Face forward. Try to keep your ears, shoulders, and hips in a line. Dont hold your breath. Lifting To lift a large object or a child: Get as close to the load as you can. Face forward, to help keep your ears and shoulders aligned. Use the muscles in your thighs and buttocks to stand up. As you lift, tighten your stomach and pelvic floor muscles. Dont hold your breath. Avoid twisting. Carrying To carry a load safely: Carry an object or child in front of you, not resting on your hip. Break up your load into 2 smaller bags, if you can. Carry 1 bag on each side to maintain balance.Or, break the load into smaller ones and take more trips. Try to tighten your stomach and pelvic floormuscles as you walk. This helps take weight off your back. Trendrating last reviewed this educational content on 06/20/201719990149-1587 [employer]. [address] [place] [address]. All rights reserved. This information is not intended as a substitute for professional medical care. Always follow your healthcare professional's instructions. Back Pain During : Positioning Yourself When standing, resting a foot on a low block can ease back pain. You likely position yourself differently now than you did before you were . Did you know that standing, sitting, or lying in certain ways can lead to back pain? To ease pain, use positions thatsupport your body comfortably. Tips for good posture Using good posture means holding yourself so that your spine is aligned and your muscles can work without strain. To use good posture: Raise your chest and head. Try to keep your ears lined up over your shoulders. Use your stomach muscles to pull in your stomach. This reduces the amount of weight your back must support. Keep your pelvis level. Think of your pelvis as a bowl of water that will spill if it tips too far forward or backward. Standing If you must stand for long periods, try to change positions every 15 minutes. This gives your muscles a break. When standing, also: Keep your legs slightly apart. This helps you balance your weight. Rest one foot on a book, ledge, or low stool. Every few minutes, switch legs. Wear comfortable shoes with padded soles and arch support, like athletic shoes. Sitting When sitting in a chair or car, make sure your spines lumbar curve is supported. Use a chair withlumbar support built in, or put a firm pillow against your lower back. Also try the following: Sit with your knees slightly lower than your hips. Dont cross your legs. Take deep breaths often. This helps keep your spine and stomach in the best position. Vary your activity each hour. For instance, get up from your desk and take a 5-minute walk aroundthe office. Lying down To lie safely and comfortably: Lie on your side with your knees slightly bent. This takes pressure offyour uterus and improvesblood flow to your baby. Place pillows under your abdomen and between your knees. To get out of bed, roll onto your side. Use your arms to push yourself into a seated position. Scoot to the edge of the bed and place your feet on the floor. Lean forward, then use your leg muscles to stand. Consider investing in a firm mattress. Lifting Tip to safely lift: Do not bend over from the waist to pick things upsquat down, bend your knees, and keep your back straight. [employer] last reviewed this educational content on 06/20/201719998618-1401 [employer]. [address] [place] [address]. All rights reserved. This information is not intended as a substitute for professional medical care. Always follow your healthcare professional's instructions. Kick Counts Its normal to worry about your babys health. One way you can knowyour babys doing well isto record the babys movements once a day. This is called a kick count.Remember to take your kick count records to all your appointments with your healthcare provider. How to count kicks Time how long it takes you to feel 10 kicks, flutters, swishes, or rolls. Ideally, you want to feel at least 10 movements within 2 hours. You will likely feel 10 movements in less time than that. Starting at 28 weeks, count your baby's movements daily. Follow your healthcare provider's instructions for kick counting. Here are tips for counting kicks: Choose a time when the baby is active, such as after a meal. Sit comfortably or lie on your side. The first time the baby moves,write downthe time. Count each movement until the baby has [id number]. This can take from 20 minutes to 2hours. If you have not felt 10 kicks by the end of the second hour, wait a few hours. Then try again. Try to do it at the same time each day. When to call your healthcare provider Call your healthcare providerright awayif: You do a couple sets of kick counts during the day and your baby moves fewer than 10times [id number] Your baby moves much less often than on thedays before. You have not felt your baby move all day. Trend[employer] last reviewed this educational content on 04/19/201719996586-0521 [employer]. [address] [place] [address]. All rights reserved. This information is not intended as a substitute for professional medical care. Always follow your healthcare professional's instructions. RWRITING SUPPORT SPECIALIST documented in this encounter Progress Notes Leeann Navarro MD - 07/14/2019 4:15 PM CST Chief complaint: Chief Complaint [...] Pain Kidney disease 2017 Pyelonephritis Ovarian cyst 2012 Family History Problem [...] file Gets together: Not on file Attends oriental orthodox service: Not on file Active member of [...] Social History Narrative No exposure to cats Scientologist preference: Spiritism Denies domestic violence or abuse Social History [...] frequency, vaginal bleeding and vaginal discharge. Skin: Positive for rash (right hand between thumb and index finger). Neurological: Negative for syncope and headaches. Hematological: Does not bruise/bleed easily. BP 105/71 (BP Location: Left arm, Patient Position: Sitting, BP CUFF SIZE: Adult Medium) | Pulse 88 | Temp 36.8 C (98.2 F) (Oral) | Resp 18 | Ht 5' 2" (1.575 m) | Wt 160 lb (72.6 kg) | LMP 11/22/2018 (Exact Date) | BMI 29.26 kg/m Pregravid BMI: 29.1 Physical Exam Vitals reviewed. Constitutional: She is oriented to person, place, and time. She appears well- developed and well-nourished. Cardiovascular: Regular rate and rhythm. Pulmonary/Chest: Normal inspiratory effort. Abdominal: Abdomen is soft. No tenderness present. No hernia palpated or inspected. Neuro/Psychiatric: She has a normal mood and affect. She is oriented to person, place, and time. Skin: Appeared to be dry skin, resolving Assessment/Plan See OB Summary Return to clinic in 2 weeks. Reviewed patient instructions and provided printed copy. Activity restrictions: As tolerated at 32w0d This visit did not involve counseling and coordination that comprised more than 50% of the visit time. Leeann Navarro MD 07/14/2019 4:35 PM documented in this encounter Plan of Treatment Date Type Specialty Care Team Description 07/28/2019 Routine Obstetrics & Ninfa Diane, Visit Gynecology [facility] [address] [place] [phone] Health Maintenance Due Date Last Done Comments PAP SMEAR 01/05/2022 01/05/2019 DTaP,Tdap,and Td Vaccines (2 - Td) 06/30/2029 06/30/2019 INFLUENZA VACCINE Completed 02/20/2019 PNEUMOCOCCAL 0-64 YEARS COMBINED Aged Out No longer eligible based on SERIES patient's age to complete this topic documented as of this encounter Procedures Procedure Name Priority Date/Time Associated Diagnosis Comme nts POCT URINALYSIS W/O Routine 07/14/2019 Supervision of high R esults for this SPECIFIC GRAVITY risk in third procedure are in the trimester results section . documented in this encounter Results POCT URINALYSIS W/O SPECIFIC GRAVITY (07/14/2019) Pathologist Sig nature POCT PH U n/a [...] th ird trimester - Primary Unspecified high-risk 32 weeks gestation of state, incidental documented in this encounter documented as of this encounter
--- OUTSIDE RECORDS SUMMARY | 2019-09-13 07:37 | XMS REPORT | Summary of Care ---
:1990 Author Organization [facility] Address [address] [place] [address] Care Team Providers Name Role Phone Pcp, Patient Does Not Have A Primary Care Provider +1-000-00 0-0000 Reason for Referral (Routine) Status Reason Specialty Diagnoses / Referred By Referred To Procedures Contact Contact New Request Maternal Diagnoses 34 weeks gestation of Supervision of high risk in third trimester Ninfa Diane, Medicine Procedures CONSULT MATERNAL MEDICINE ULTRASOUND Preferred Location: [address] [phone] Reason for Visit Reason Comments ROUTINE VISIT Encounter Details Date Type Department Care Team Description 07/28/2019 Routine [facility] Women's Ninfa Diane, Supervision of high risk in third trimester (Primary Dx); Visit [facility] 34 weeks gestation of [address] [facility] [address] [place] [phone] Allergies Active Allergy Reactions Severity Noted Date Comments Fluticasone Propionate Anaphylaxis 01/05/2019 Morphine Hives 01/05/2019 documented as of this encounter (statuses as of 07/28/2019) Medications Medication Sig Dispensed Refills Start Date [...] as of this encounter (statuses as of 07/28/2019) Active Problems Problem Noted Date Gastroesophageal reflux disease, esophagitis presence not specified 05/21/2019 32 weeks gestation of 05/21/2019 Supervision of high risk in third trimester 05/21/2019 Estimated Date of Delivery Comments Yes 09/08/2019 Based on Ultrasound documented as of this encounter (statuses as of 07/28/2019) Resolved Problems Problem Noted Date Resolved Date Nausea and vomiting during prior to 22 weeks 02/2005/21/2019 gestation documented as of this encounter (statuses as of 07/28/2019) Immunizations Name Administration Dates Next Due Influenza [...] Sign Reading Time Taken Comments Blood Pressure 105/62 07/28/2019 9:08 AM CDT Pulse 85 07/28/2019 9:08 AM CDT Temperature 36.9 C (98.4 F) 07/28/2019 9:08 AM CDT Respiratory Rate 18 07/28/2019 9:08 AM CDT Oxygen Saturation - - Inhaled Oxygen Concentration - - Weight 73.1 kg (161 lb 3.2 oz) 07/28/2019 9:08 AM CDT Height 157.5 cm (5' 2") 07/28/2019 9:08 AM CDT Body Mass Index 29.48 07/28/2019 9:08 AM CDT documented in this encounter Progress Notes Ninfa Diane PA-C - 07/28/2019 9:15 AM CDT Chief complaint: Chief Complaint Patient presents with ROUTINE VISIT HPI Sindy Chavez is a 28 year old female @ 34w0d coming in for PN visit. Denies contractions, [...] file Gets together: Not on file Attends hindu service: Not on file Active member of [...] Social History Narrative No exposure to cats Religion preference: Buddhist Denies domestic violence or abuse Social History [...] not nervous/anxious. Endocrine: Negative for hair loss. BP 105/62 | Pulse 85 | Temp 36.9 C (98.4 F) (Oral) | Resp 18 | Ht 5' 2" (1.575 m) | Wt 161 lb 3.2 oz (73.1 kg) | LMP 11/22/2018 (Exact Date) | BMI 29.48 kg/m Pregravid BMI: 29.1 Physical Exam Vitals [...] of the visit time. Ninfa Diane PA-C 07/28/2019 11:02 AM documented in this encounter Plan of Treatment Date Type Specialty Care Team Description 08/12/2019 Routine Obstetrics & Navarro, Leeann Figueredo MD Visit Gynecology [address] [place] [address] [address]. [address] [place], [place] [address] [phone] Health Maintenance Due Date Last Done Comments PAP SMEAR 01/05/2022 01/05/2019 DTaP,Tdap,and Td Vaccines (2 - Td) 06/30/2029 06/30/2019 INFLUENZA VACCINE Completed 02/20/2019 PNEUMOCOCCAL 0-64 YEARS COMBINED Aged Out No longer eligible based on SERIES patient's age to complete this topic documented as of this encounter Procedures Procedure Name Priority Date/Time Associated Diagnosis Comme nts POCT URINALYSIS W/O Routine 07/28/2019 34 weeks gestation of Results for this SPECIFIC GRAVITY procedure a re in the results section . documented in this encounter Results POCT URINALYSIS W/O SPECIFIC GRAVITY (07/28/2019) Pathologist Sig nature POCT PH U N/A [...] th ird trimester - Primary Unspecified high-risk 34 weeks gestation of state, incidental documented in this encounter documented as of this encounter
--- OUTSIDE RECORDS SUMMARY | 2019-09-13 07:37 | XMS REPORT | Summary of Care ---
:1990 Author Organization [facility] Address [address] [place] [id number] Care Team Providers Name Role Phone Pcp, Patient Does Not Have A Primary Care Provider +1-000-00 0-0000 Reason for Referral (Routine) Status Reason Specialty Diagnoses / Referred By Referred To Procedures Contact Contact New Request Maternal Diagnoses 34 weeks gestation of Supervision of high risk in third trimester Ninfa Diane, Medicine Procedures CONSULT MATERNAL MEDICINE ULTRASOUND Preferred Location: [address] [address] Reason for Visit Reason Comments ROUTINE VISIT Encounter Details Date Type Department Care Team Description 07/28/2019 Routine [facility] Women's Ninfa Diane, Supervision of high risk in third trimester (Primary Dx); Visit [facility] 34 weeks gestation of [address] [facility] [address] [place] [phone] Allergies Active Allergy Reactions [...] file Gets together: Not on file Attends methodist service: Not on file Active member of [...] Social History Narrative No exposure to cats Hindu preference: Pentecostal Denies domestic violence or abuse Social History [...] & Navarro, Leeann Figueredo MD Visit Gynecology [address] [place] [address] [address]. [address] [place], [place] [address] [phone] Health Maintenance Due Date Last Done Comments [...]
--- OUTSIDE RECORDS SUMMARY | 2019-09-13 07:37 | XMS REPORT | Summary of Care ---
:1990 Author Organization [facility] Address [address] [place] [address] Care Team Providers Name Role Phone Pcp, Patient Does Not Have A Primary Care Provider +[id number] 0-0000 Reason for Visit Reason Comments ROUTINE VISIT Encounter Details Date Type Department Care Team Description 08/18/2019 Routine [facility] Women's Ninfa Diane, Supervision of high risk in third trimester (Primary Dx); Visit Healthcare- PA-C 37 weeks gestation of [address] [facility], [address] [facility] [address] [place] [phone] Allergies Active Allergy Reactions Severity Noted Date Comments Fluticasone Propionate Anaphylaxis 01/05/2019 Morphine Hives 01/05/2019 documented as of this encounter (statuses as of 08/18/2019) Medications Medication Sig Dispensed Refills Start Date [...] as of this encounter (statuses as of 08/18/2019) Active Problems Problem Noted Date Gastroesophageal reflux disease, esophagitis presence not specified 05/21/2019 Supervision of high risk in third trimester 05/21/2019 Estimated Date of Delivery Comments Yes 09/08/2019 Based on Ultrasound documented as of this encounter (statuses as of 08/18/2019) Resolved Problems Problem Noted Date Resolved Date 36 weeks gestation of 05/21/2019 08/18/19 20 Nausea and vomiting during prior to 22 weeks 02/2005/21/2019 gestation documented as of this encounter (statuses as of 08/18/2019) Immunizations Name Administration Dates Next Due Influenza [...] Sign Reading Time Taken Comments Blood Pressure 103/68 08/18/2019 8:51 AM CDT Pulse 76 08/18/2019 8:51 AM CDT Temperature 36.8 C (98.2 F) 08/18/2019 8:51 AM CDT Respiratory Rate 18 08/18/2019 8:51 AM CDT Oxygen Saturation - - Inhaled Oxygen Concentration - - Weight 73.5 kg (162 lb) 08/18/2019 8:51 AM CDT Height 157.5 cm (5' 2") 08/18/2019 8:51 AM CDT Body Mass Index 29.63 08/18/2019 8:51 AM CDT documented in this encounter Patient Instructions Patient InstructionsDoreen Kaminski MA - 08/18/2019 9:45 AM CDT Patient Education Labor and Childbirth: Your Body Prepares Labor is the series of uterine contractions that dilate (open) and efface (thin) your cervix for . Your due date is a guide to when labor will begin, but babies often come days or weeks before or after due dates. Even so, labor need not take you by surprise. In the last weeks of , you oryour healthcare provider may notice changes that mean labor is near. Changes in your body Physical changes often signal that your baby will soon be born: Discharge from your vagina may increase and become thicker. You may notice a pink or brownish discharge called the bloody show. The mucous plug may break down over a few weeks or all at once. Losing the plug doesnt mean that labor will start right away. You may feel Rich Villagomez contractions (false labor). These irregular contractions start to soften and thin the cervix. Many women mistake these contractions for true labor. They may be morenoticeabletowards the end of the day. Feeling like the baby has dropped lower. In preparation for , the baby's head has settled deep into your pelvis. ison furniture last reviewed this educational content on 06/20/201719996507-6576 [employer]. [address] [place] [address]. All rights reserved. This information is not intended as a substitute for professional medical care. Always follow your healthcare professional's instructions. Patient Education Recognizing Labor The beginning of labor is the beginning of . Youll start to feel strong contractions. Thats when the muscles of your uterus tighten up to help push your baby out during . Yes, labor has probably started Signs of labor include: Your contractions are getting stronger and more painful instead of weaker. Youll probably feelthem throughout your whole uterus. Your contractions are regular. This means that you feel them about every 5 to 10 minutes. And they are getting closer together. You have pink-colored or blood-streaked fluid from your vagina. You feel that the baby has "dropped" lower in your pelvis Your water breaks. It may be a gush or a slow trickle of clear fluid from your vagina. No, its probably not real labor Signs of false labor include: Your contractions arent regular or strong. You feel the contractions only in your lower uterus. Your contractions go away when you walk or change position. Your contractions go away after drinking fluids. When to call your healthcare provider Call your healthcare provider or clinic right away if you notice any of these signs: Fluid from your vagina, with or without contractions. Bleeding heavy enough that you need a sanitary pad. You dont feel your baby moving as much as before. NOTE: Contractions are timed by both of these measures: The length of each contraction from its start to its finish. How far apart the contractions arethe time between the start of one contraction and the start of the next contraction. [employer] reviewed this educational content on 02/17/201719990139-6646 [employer]. [address] [place] [address], [place] [address]. All rights reserved. This information is not intended as a substitute for professional medical care. Always follow your healthcare professional's instructions. Patient Education Stages of Labor Labor has 3 stages. Your healthcare provider may talk about the progress of your labor with certain words. One of these is your babys position. Another is your babysstation. And the effacement and dilation of your cervix will be noted. Read below to learn about these terms and the 3 stages of labor. Your baby moves into position Position is your babys placement inyour uterus. Your baby may be facing left or right. He or she may be head first or feet first. Station refers to how far your baby has moved down intoyour pelvic cavity. First stage of labor During the first stage of labor, contractions of the uterus help your cervix thin (efface). They also help it widen (dilate). This will help your baby pass through the canal (vagina). At first your contractions will not come that often or last that long. But as time passes, they will come more often, they may be more painful, and they will last longer. They will last about 30 to 60 seconds each. The first stage of labor lasts until the cervix is fully dilated. Second stage of labor When your cervix is fully dilated, the second stage of labor begins. In this stage, you will have stronger contractions of your uterus that will help your baby move down the canal. They may happen every 2 to 5minutes. They may last from 45 to 90 seconds each. Your healthcare provider will ask you to push with each contraction. Try to rest between the contractions if you can. Your baby is delivered at the end of this stage of labor. Third stage of labor The third stage of labor comes after your baby is born. This is when the afterbirth (placenta) comesout ofyour uterus. Your uterus will continue tocontract. But the contractionsare much milder than before. [employer] furniture last reviewed this educational content on 02/17/201719991226-5150 [employer]. [address] [place] [address], [place] [address]. All rights reserved. This information is not intended as a substitute for professional medical care. Always follow your healthcare professional's instructions. Patient Education Labor and Childbirth: Active Labor During active labor, your contractions will be stronger and more rhythmic than with early labor. They peak and subside like waves. They may happen2 to3 minutes apart and last about 45 to 60 seconds. This part of labor can be hard work. But it is often shorter than early labor. When you reach active labor, exams and tests will be done to see how you and your baby are doing. Your cervix may dilate 4 to 8 centimeters during the first part of active labor. Evaluating you and your baby An exam tells how you and your baby are responding to contractions. Your blood pressure, temperature, and pulse will be checked. A blood or urine sample may also be taken. A monitor will be used to check your babys heart rate. Sometimes an IV (intravenous) line is started to give you medicineand fluids. Moving ahead with labor You may now feel contractions inyour whole stomach instead of just the lower part (like during early labor). If your amniotic sac has not broken already, it may break now. Or, it may be broken for you. To help your baby descend, change position often. Walking or sitting in a rocking chair or recliner may help. You may find it hard to relax even though you are tired. You may also be less interested in talking than you were earlier. If youre having anesthesia, you will get it now. Special issues during labor If labor doesnt progress well or a problem arises, you may need a .But your healthcare providers maytake certain steps to help you avoid a : If your cervix isnt dilating, a medicine (oxytocin)may be used to augment labor. If monitoring shows your baby isnt getting enough oxygen, shifting your body position may help. You may also be given oxygen through a mask. If you have preeclampsia (a condition that results in high blood pressure, swelling, and other symptoms), you may be given medicines by IV (intravenous). Your healthcare provider may also tell you to lie on your left side. Responding to contractions During contractions, try to stay relaxed. Tense muscles use more oxygen, eat up your bodys energy, and increase pain. Use the breathing and relaxation techniques you may have learned. And let your support person know how he or she can help. If youve had problems during a previous , focus onthe present. Keep in mind that no 2 births are the same. Support persons note Here's how you can help: Have the mother walk or change positions at least once an hour. This improves circulation and helps the baby descend. Keep reminding the mother to breathe and relax through each contraction. Reassure her. Try to keep her from getting anxious or overstressed. Take care of yourself. Take a short break to eat or go to the bathroom when you need to. Rest when the mother does. Youll both benefit. is[employer] furniture last reviewed this educational content on 06/20/201719992012-3454 [employer]. [address] [place] [address]. All rights reserved. This information is not intended as a substitute for professional medical care. Always follow your healthcare professional's instructions. Patient Education Labor and Childbirth: Immediately after After any type of , your healthcare provider will closely monitor yourrecovery.Youll likely be able to greet your baby and start your new life together. While youre being cared for, yourbaby receives his or her first exam. Starting your life together Attachment, or bonding, starts soon after . Its an ongoing process that may take weeks or months. Be aware that you may not fall in love with your baby right away. Most newborns dont look like the chubby babies you see on TV. Months spent in your uterus and time in the canal can make your look wrinkled and puffy-eyed. A slightly pointed or misshapen head is also common. Theseall go away after a few days. After , you may place your baby on yourstomach or breast. This will signal your body to begin making milk. If you choose not to breastfeed, your healthcare providerwill instruct youon how to stop milk production.If you are going to breastfeed, your healthcare provider or nurse may help you introduce your baby to your breast and start . Isle babies are usually very alert right after . They are ready to start .Whether or not you are going to breastfeed your baby, your baby will likely be placed szmo-wr-fihm on your chest. This allows your body to help regulate your baby's temperature. It can also start the bonding process. Your immediate recovery After , most women shake and get chills. This is over quickly. Your healthcare provider will watch your temperature and blood pressureuntil they are stable. Sanitary pads absorb the discharge ofyour uterine lining. To ensure that you arent bleeding too much, the pad and the firmness ofyour uterus will be checked. If you had anesthesia, your healthcare provider will watch you closelyuntil you can feel and move your toes. If you have pain, he or she maygive you pain relievers.If you have perineal pain, an ice pack can help. Babys first exam A healthcare provider will examine your babywithin the first 5 minutes after , or after you have had the opportunity to breastfeed your baby. Your babys heart rate, respiration (breathing), muscle tone, reflexes, and color are assessed. Based on the exam, an (activity, pulse, grimace, appearance, respiration) score is given. Your baby may also be bathed, dried, weighed, and measured. Eye drops may be given to prevent infection. ID bracelets are placed around the babys wrist and ankle. [employer] last reviewed this educational content on 06/20/201719997160-6559 [employer]. [address] [place] [address]. All rights reserved. This information is not intended as a substitute for professional medical care. Always follow your healthcare professional's instructions. documented in this encounter Progress Notes Ninfa Diane PA-C - 08/18/2019 9:45 AM CDT Chief complaint: Chief Complaint Patient presents with ROUTINE VISIT HPI Sindy Chavez is a 28 year old female @ 37w0d coming in for PN visit. Denies contractions, [...] file Gets together: Not on file Attends roman catholic service: Not on file Active member of [...] Social History Narrative No exposure to cats Taoism preference: Druze Denies domestic violence or abuse Social History [...] not nervous/anxious. Endocrine: Negative for hair loss. Ht 5' 2" (1.575 m) | LMP 11/22/2018 (Exact Date) | BMI [...] SEE OB SUMMARY Return to clinic in 1 weeks. Discussed treatment options. Reviewed patient instructions and provided printed copy. Activity restrictions: As tolerated This visit did not involve counseling and coordination that comprised more than 50% of the visit time. Ninfa Diane PA-C 08/18/2019 9:46 AM documented in this encounter Plan of Treatment Date Type Specialty Care Team Description 08/25/2019 Routine Obstetrics & Navarro, Leeann Figueredo MD Visit Gynecology [address] [place] [address] DR. Nelson [place] [address] [phone] Name Type Priority Associated Diagnoses Order S chedule CBC WITH DIFF LAB Routine 37 weeks gestation of Expec layo: 08/18/2019, Expires: 11/17/2019 Supervision of high risk in third trimester GC & CHLAMYDIA AMPLIFIED LAB Routine 37 weeks gestati on of Ordered: 08/18/2019 ASSAY Supervision of high risk in third trimester GROUP B STREPTOCOCCUS BY LAB Routine 37 weeks gestati on of Ordered: 08/18/2019 PCR Supervision of high risk in third trimester RUBELLA SCREEN IGG LAB Routine 37 weeks gestation of Expected: 08/18/2019, Expires: 08/17/2020 Supervision of high risk in third trimester Health Maintenance Due Date Last Done Comments PAP SMEAR 01/05/2022 01/05/2019 DTaP,Tdap,and Td Vaccines (2 - Td) 06/30/2029 06/30/2019 INFLUENZA VACCINE Completed 02/20/2019 PNEUMOCOCCAL 0-64 YEARS COMBINED Aged Out No longer eligible based on SERIES patient's age to complete this topic documented as of this encounter Procedures Procedure Name Priority Date/Time Associated Comments Diagnosis >14 WEEKS US Routine 08/18/2019 10:11 AM 37 weeks gestation Re sults for this LIMITED CDT of procedure are in Supervision of high the resu lts risk in section. third trimester POCT URINALYSIS W/O Routine 08/18/2019 37 weeks gestation Re sults for this SPECIFIC GRAVITY of procedure are in Supervision of high the resu lts risk in section. third trimester documented in this encounter Results >14 WEEKS US LIMITED (08/18/2019 10:11 AM CDT) Specimen Narrative Performed At This result has an attachment that is no t available. Cephalic presentation PACS Performing Organization Address City/State/Zipcode Phone Number PACS POCT URINALYSIS W/O SPECIFIC GRAVITY (08/18/2019) Pathologist Sig nature POCT PH U N/A 5 - 8 mg/dl POCT U LEUK EST N/A Negative - Negative POCT U NIT Negative Negative - Negative POCT U PROT Negative Negative - Negative POCT U GLU N/A Negative - Negative POCT U KETONE N/A Negative - Negative POCT U BLD N/A Negative - Negative Specimen Urine - URINE, CLEAN CATCH documented in this encounter Visit Diagnoses Diagnosis Supervision of high risk in th ird trimester - Primary Unspecified high-risk 37 weeks gestation of state, incidental documented in this encounter documented as of this encounter
--- OUTSIDE RECORDS SUMMARY | 2019-09-13 07:37 | XMS REPORT | Summary of Care ---
:1990 Author Organization [facility] Address [address] [place] [address] Care Team Providers Name Role Phone Pcp, Patient Does Not Have A Primary Care Provider +1-000-00 0-0000 Encounter Details Date Type Department Care Team Description 08/18/2019 Orders Only [facility] Doctor Unassigned, No [address] [facility] [place] [address] [address] [place] [id number] Allergies Active Allergy Reactions Severity Noted Date [...] & Navarro, Leeann Figueredo MD Visit Gynecology [address] [place] [address] DR. Nelson [place], [place] [address] [phone] Health Maintenance Due Date Last Done Comments PAP SMEAR 01/05/2022 01/05/2019 DTaP,Tdap,and Td Vaccines (2 - Td) 06/30/2029 06/30/2019 INFLUENZA VACCINE Completed 02/20/2019 PNEUMOCOCCAL 0-64 YEARS COMBINED Aged Out No longer eligible based on SERIES patient's age to complete this topic documented as of this encounter Procedures Procedure Name Priority Date/Time Associated Diagnosis Comme nts DSU PRE-OP Routine 08/18/2019 12:01 AM CDT documented in this encounter Results Not on filedocumented in this encounter Insurance Payer Benefit Plan / Group Subscriber ID Effective Dates Phone Address Type AETNA AETNA [facility] [id number] 2018-Present PPO [employer] [id number] 2019-Present PPO documented as of this encounter
--- OUTSIDE RECORDS SUMMARY | 2019-09-13 07:38 | XMS REPORT | Summary of Care ---
:1990 Author Organization [facility] Address [address] [place] [address] Care Team Providers Name Role Phone Pcp, Patient Does Not Have A Primary Care Provider +1-000-00 0-0000 Reason for Visit Reason Comments Notification Encounter Details Date Type Department Care Team Description 08/26/2019 Telephone [facility] Women's Danielle Diane PA-C Notification Healthcare- [address], [address] [facility] [address] 8 [address] [place] [address] [place] [address] [phone] Allergies Active Allergy Reactions Severity Noted Date Comments Fluticasone Propionate Anaphylaxis 01/05/2019 Morphine Hives 01/05/2019 documented as of this encounter (statuses as of 08/26/2019) Medications Medication Sig Dispensed Refills Start Date [...] as of this encounter (statuses as of 08/26/2019) Active Problems Problem Noted Date Gastroesophageal reflux disease, esophagitis presence not specified 05/21/2019 Supervision of high risk in third trimester 05/21/2019 Estimated Date of Delivery Comments Yes 09/08/2019 Based on Ultrasound documented as of this encounter (statuses as of 08/26/2019) Resolved Problems Problem Noted Date Resolved Date 36 weeks gestation of 05/21/2019 08/18/19 20 Nausea and vomiting during prior to 22 weeks 02/2005/21/2019 gestation documented as of this encounter (statuses as of 08/26/2019) Immunizations Name Administration Dates Next Due Influenza [...] Treatment Date Type Specialty Care Team Description 09/29/2019 Routine Obstetrics & Ninfa Diane, Visit Gynecology [facility] [address] [place] [phone] Health Maintenance Due Date Last Done [...] Effective Dates Phone Address Type AETNA AETNA [facility] CARE [id number] 2018-Present PPO [employer] [id number] 2019-Present PPO documented as of this encounter
--- OUTSIDE RECORDS SUMMARY | 2019-09-13 07:38 | XMS REPORT | Summary of Care ---
:1990 Author Organization [facility] Address [address] [place] [address] Care Team Providers Name Role Phone Pcp, Patient Does Not Have A Primary Care Provider +1-000-00 0-0000 Reason for Visit Reason Comments Lab Results pre-op Covid testing Encounter Details Date Type Department Care Team Description 08/31/2019 Telephone [facility] Women's NavarroLeeann MD Lab Results (pre-op Healthcare- [address] Covid testing ) [address] [place], [place] [address] 208 [facility] 208 [place], [place] [phone] [phone] Allergies Active Allergy Reactions Severity Noted Date Comments Fluticasone Propionate Anaphylaxis 01/05/2019 Morphine Hives 01/05/2019 documented as of this encounter (statuses as of 08/31/2019) Medications Medication Sig Dispensed Refills Start Date [...] reflux disease, esophagitis presence not specified doxylamine-pyridoxine, 1po@.If not 120 tablet 1 06/16/2019 Active vit B6, (DICLEGIS) effective,2 10-10 mg per po@HS,if not tabletIndications: effective Nausea and vomiting 2po@hS&1po in during prior AM.If not to 22 weeks gestation effective,2po@HS ,1po in AM, & 1early PM. Max 4 tab/day. documented as of this encounter (statuses as of 08/31/2019) Active Problems Problem Noted Date Gastroesophageal reflux disease, esophagitis presence not specified 05/21/2019 Supervision of high risk in third trimester 05/21/2019 Estimated Date of Delivery Comments Yes 09/08/2019 Based on Ultrasound documented as of this encounter (statuses as of 08/31/2019) Resolved Problems Problem Noted Date Resolved Date 36 weeks gestation of 05/21/2019 08/18/19 20 Nausea and vomiting during prior to 22 weeks 02/2005/21/2019 gestation documented as of this encounter (statuses as of 08/31/2019) Immunizations Name Administration Dates Next Due Influenza [...] Treatment Date Type Specialty Care Team Description 09/01/2019 Hospital Encounter Obstetrics Leeann Navarro MD [address] [place] [address] [address] [phone] 09/29/2019 Routine Obstetrics & Ninfa Diane, Visit Gynecology PA-C [address] [place] [address] [phone] Health Maintenance Due Date Last Done Comments [...] Phone Address Type AETNA AETNA [facility] [id number] 2018-Present PPO A[employer]NA [id number] [id number] 2019-Present PPO documented as of this encounter
--- OUTSIDE RECORDS SUMMARY | 2019-09-13 07:38 | XMS REPORT | Summary of Care ---
:1990 Author Organization [facility] Address [address] [place] [address] Care Team Providers Name Role Phone Pcp, Patient Does Not Have A Primary Care Provider +[id number] 0-0000 Reason for Visit Reason Comments LAB WORK Encounter Details Date Type Department Care Team Description 08/18/2019 Insurance Examiner Visit [facility] Ninfa Diane PA-C [address] [place] [address] [address] [place] [phone] 37 weeks gestation of ; Professional Office 2, [facility] Supervision of high risk in th ird trimester Building Phlebotomy Lab Professional Office Building [address] [place] [address] , [address] [place] [address] Allergies Active Allergy Reactions Severity [...] Navarro, Leeann Figueredo MD Visit Gynecology [address] [place] [address] [address]. [address] [place] [phone] Name Type Priority Associated Diagnoses Date/Ti me RUBELLA SCREEN IGG LAB Routine 37 weeks gestation of 08/18/2019 10:19 AM CDT Supervision of high risk in third trimester [...] Associated Comments Diagnosis CBC WITH DIFFERENTIAL Routine 08/18/2019 10:19 37 weeks gestat ion Results for this AM CDT of procedure are in Supervision of high the resu lts risk in section. third trimester CBC WITH DIFFERENTIAL Routine 08/18/2019 10:19 37 weeks gestat ion Results for this AM CDT of procedure are in Supervision of high the resu lts risk in section. third trimester documented in this encounter Results CBC WITH DIFFERENTIAL (08/18/2019 10:19 AM CDT) Pathologist Sig nature WBC 6.81 4.30 - 11.10 [facility] 10*3/L [facility] RBC 3.95 3.93 - 5.25 [facility] 10*6/L [facility] HGB 12.0 11.6 - 15.0 [facility] g/dL [facility] HCT 37.1 35.7 - 45.2 % [facility] MCV 93.9 80.6 - 95.5 fL [facility] MCH 30.4 25.9 - 32.8 pg [facility] MCHC 32.3 31.6 - 35.1 [facility] g/dL [facility] RDW-SD 48.1 39.0 - 49.9 fL [facility] RDW-CV 14.1 12.0 - 15.5 % [facility] PLT 189 166 - 358 [facility] 10*3/L [facility] MPV 12.0 9.5 - 12.9 fL [facility] NRBC/100 WBC 0.0 0.0 - 10.0 /100 [facility] WBCs [facility] NRBC x10^3 <0.01 10*3/L [facility] GRAN MAT (NEUT) % 67.2 % [facility] IMM GRAN % 0.90 % [facility] LYMPH % 25.6 % [facility] MONO % 5.9 % [facility] EOS % 0.3 % [facility] BASO % 0.1 % [facility] GRAN MAT x10^3(ANC) 4.58 1.88 - 7.09 [facility] 10*3/uL [facility] IMM GRAN x10^3 0.06 0.00 - 0.06 [facility] 10*3/uL HOSPITAL LAB[facility] LYMPH x10^3 1.74 1.32 - 3.29 [facility] 10*3/uL [facility] MONO x10^3 0.40 0.33 - 0.92 [facility] 10*3/uL [facility] EOS x10^3 <0.03 (L) 0.03 - 0.39 [facility] 10*3/uL [facility] BASO x10^3 <0.03 0.01 - 0.[address]/[facility] LABOR[facility]ORY Specimen Blood Performing Organization Address City/State/Zipcode Phone Number [facility] CLIA: [id number], [address] [place], [place] [address] documented in this encounter Visit Diagnoses Diagnosis 37 weeks gestation of state, incidental Supervision of high risk in th ird trimester Unspecified high-risk documented in this encounter (Home) [place] [address] documented as of this encounter
--- OUTSIDE RECORDS SUMMARY | 2019-09-13 07:38 | XMS REPORT | Summary of Care ---
:1990 Author Organization [facility] Address [address] [place] [address] Care Team Providers Name Role Phone Pcp, Patient Does Not Have A Primary Care Provider +1-000-00 0-0000 Reason for Visit Reason Comments ROUTINE VISIT Encounter Details Date Type Department Care Team Description 08/25/2019 Routine [facility] NavarroLeeann am, MD Supervision of high risk in th ird trimester (Primary Dx); Visit Healthcare- [address] [place] [address] 38 weeks g estation of [address], [place] [address] [address] [place] [phone] Allergies Active Allergy Reactions Severity Noted Date Comments Fluticasone Propionate Anaphylaxis 01/05/2019 Morphine Hives 01/05/2019 documented as of this encounter (statuses as of 08/25/2019) Medications Medication Sig Dispensed Refills Start Date [...] as of this encounter (statuses as of 08/25/2019) Active Problems Problem Noted Date Gastroesophageal reflux disease, esophagitis presence not specified 05/21/2019 Supervision of high risk in third trimester 05/21/2019 Estimated Date of Delivery Comments Yes 09/08/2019 Based on Ultrasound documented as of this encounter (statuses as of 08/25/2019) Resolved Problems Problem Noted Date Resolved Date 36 weeks gestation of 05/21/2019 08/18/19 20 Nausea and vomiting during prior to 22 weeks 02/2005/21/2019 gestation documented as of this encounter (statuses as of 08/25/2019) Immunizations Name Administration Dates Next Due Influenza [...] Sign Reading Time Taken Comments Blood Pressure 113/77 08/25/2019 3:51 PM CDT Pulse 100 08/25/2019 3:51 PM CDT Temperature 36.8 C (98.3 F) 08/25/2019 3:51 PM CDT Respiratory Rate 18 08/25/2019 3:51 PM CDT Oxygen Saturation - - Inhaled Oxygen Concentration - - Weight 74.4 kg (164 lb) 08/25/2019 3:51 PM CDT Height 157.5 cm (5' 2") 08/25/2019 3:51 PM CDT Body Mass Index 30 08/25/2019 3:51 PM CDT documented in this encounter Patient Instructions Patient Doreen Lemus MA - 08/25/2019 4:15 PM CDT Patient Education Labor Induction Labor induction is a way to help get your labor started. This can protect your health and your babys, too. Ways to induce labor Your healthcare provider can get your labor started by using any of 3 methods or a combination of them. Here are some common treatments: Prostaglandin.A medicine that may be given as a pill, capsule, or vaginal suppository. It softens,thins, and opens the cervix. This is called cervical ripening. Your healthcare provider may also usea Hurley catheter or a double balloon catheter. Your healthcare provider inserts the catheter intoyour cervix to mechanically dilate it and cause the release of natural prostaglandins. Pitocin (oxytocin). A medicine your healthcare provider gives youthrough an IV (intravenous) line.You may get it within 4 to 24 hours after your healthcare provider gives you prostaglandin. Pitocin helps start contractions. Its always given in the hospital. Rupturing the membrane. A procedure in which your healthcare provideruses a small tool to break your bag of water. Healthcare providers perform this proceduremore often in women who have given before. And its always done in the hospital. This procedure needs the cervix to be dilated enough to allow the procedure and the baby's head to be down, close to the cervix. Reasons for inducing labor There are reasons that your healthcare provider will decide to induce labor, including the following: When the health of the mother or fetus is at risk by continuing the . These conditions include preeclampsia, poor growth, low amniotic fluid, infection of the membranes (chorioamnionitis), ruptured bag of water, and certain diseases,likediabetes. Elective after 39 weeks for nonmedical reasons likeliving far from the hospital What to expect Prostaglandin may be given in the hospital. monitoring is needed after placement. Other methods of inducing labor are done in the hospital. Youll need to stay there until you give . Your healthcare provider may attach monitors to your belly to measure contractions and help make sure yourbaby has no problems. No matter how your healthcare provider induces labor, afew factors may affect how long it takes you to give . These include how long it takes for your cervix to thin and open, and when contractions begin. Give yourself time Even though inducing labor gets the process started, you still may need to wait. Mothers who have labor induced most often give within a day or so. But it can take as long as a few days to give . With labor induction, you may have a greater chance of: A section (surgical delivery) An infection A longer hospital stay Uterine rupture, although rare , although extremely rare [employer] reviewed this educational content on 02/17/2017 [employer]. [address] [place] [address]. All rights reserved. This information is not [...] and the start of the next contraction. [employer] reviewed this educational content on 02/17/2017 [employer]. [address] [place] [address]. All rights reserved. This information is not [...] But the contractionsare much milder than before. [employer] last reviewed this educational content on 02/17/201719999369-5274 [employer]. [address] [place] [address], [place] [address]. All rights reserved. This information is not intended as a substitute for professional medical care. Always follow your healthcare professional's instructions. Patient Education Pelvic Pain in : Unclear (23 Trimester) You are well into your and are having pain and pressure in your pelvic area. This is your lower belly (abdomen). Mild pelvic pressure or heaviness is very common in the latter stages of a healthy . This is due to the growing uterus (womb). Although the exact cause of your pain is not certain, it does not appear to be dangerous. It may be due to ligaments in your belly stretching tosupport your uterus as it grows. The weight of your baby may also be causing pressure and pain. Paincan be caused by the bones of your pelvis shifting as your body makes room for the baby to pass through. This is known as symphysis pubis dysfunction (SPD). SPD can cause quite a bit of pain and discomf ort as the due date nears. Pain in the low back is common during . Home care The following are general care guidelines: Avoid strenuous activities and long periods of standing. Bed rest is not needed unless your doctor has recommended it. Exercise for 30 minutes all or most days of the week. This will promote muscle tone, strength, and endurance. Ask your healthcare provider what exercises to do and to avoid. Sit in a warm (NOT hot) bath. This helps relax tight, painful muscles. Sleep on your side with a pillow between your legs. This helps align your pelvis. Eat frequent, light meals. Choose foods that are easy to digest. Ask your doctor whether a support belt could help you. If told to by your healthcare provider, take an odof-gvz-zbjpapt medicine, such as acetaminophen,to relieve pain. Follow instructions carefully for how much to take and how often to take it. Do nottake aspirin or nonsteroidal anti- inflammatory medicines (like ibuprofen) unless you have been told to do so by your healthcare provider. Follow-up care Follow up with your healthcare provider, or as advised. When to seek medical advice Call your healthcare provider right away if any of these occur: Sudden or gradual worsening abdominal pain Fainting, dizziness, or weakness when standing Any vaginal bleeding Leakage of fluid from the vagina Decreased motion Repeated vomiting or diarrhea Pain that seems to settle in one area, especially the lower right abdomen Blood in vomit or bowel movements (dark red or black color) Fever of 100.4F (38C) or higher [employer] last reviewed this educational content on 10/19/201519994046-1649 [employer]. [address] [place] [address], [place] [address]. All rights reserved. This information is not intended as a substitute for professional medical care. Always follow your healthcare professional's instructions. Patient Education Tailor Sit, Trunk Turn for Back Pain [...] Then change sides and slowly twist left. [employer] last reviewed this educational content on 06/20/201719996429-3503 [employer]. [address] [place], [place] [address]. All rights reserved. This information is not intended as a substitute for professional medical care. Always follow your healthcare professional's instructions. Patient Education Relieving Back Pain During : Wall Stretch, [...] 3. Hold for 5 counts, then straighten. [employer] last reviewed this educational content on 06/20/201719997607-7819 [employer]. [address] [place] [address]. All rights reserved. This information is not intended as a substitute for professional medical care. Always follow your healthcare professional's instructions. documented in this encounter Progress Notes Leeann Navarro MD - 08/25/2019 4:15 PM CDT Chief complaint: Chief Complaint Patient presents with ROUTINE VISIT HPI Denies vaginal bleeding, LOF, dysuria, or PIH symptoms. + active FM. + irregular contractions. Histories OB History Para Term AB Living [...] file Gets together: Not on file Attends anabaptism service: Not on file Active member of [...] Social History Narrative No exposure to cats Evangelical preference: [employer] Denies domestic violence or abuse Social History [...] tightness, shortness of breath and wheezing. Breasts: Feels right breast more tender than left and warm to touch. [place] a lump on Saturday that has resolved. Cardiovascular: Negative for chest pain and palpitations. Gastrointestinal: Negative for abdominal distention, abdominal pain, constipation, diarrhea, nausea and vomiting. Genitourinary: Negative for dysuria, urgency, frequency, vaginal bleeding and vaginal discharge. Musculoskeletal: Intermittent pain on the right side of abdomen towards vagina while walking Skin: Negative for rash. Neurological: Negative for syncope and headaches. Hematological: Does not bruise/bleed easily. BP 113/77 (BP Location: Left arm, Patient Position: Sitting, BP CUFF SIZE: Adult Medium) | Pulse 100 | Temp 36.8 C (98.3 F) (Oral) | Resp 18 | Ht 5' 2" (1.575 m) | Wt 164 lb (74.4 kg) | LMP 11/22/2018 (Exact Date) | BMI 30.00 kg/m Pregravid BMI: 29.1 Physical Exam Vitals reviewed. Constitutional: She is oriented to person, place, and time. Her body habitus is obese. Cardiovascular: Regular rate and rhythm. Pulmonary/Chest: Normal inspiratory effort. Abdominal: Abdomen is soft. No tenderness present. No hernia palpated or inspected. Neuro/Psychiatric: She has a normal mood and affect. She is oriented to person, place, and time. Skin: Skin normal. No rash present. Assessment/Plan See OB Summary Reviewed patient instructions and provided printed copy. Activity restrictions: As tolerated at 38w0d This visit did not involve counseling and coordination that comprised more than 50% of the visit time. Leeann Navarro MD 08/25/2019 4:35 PM documented in this encounter Plan of Treatment Date Type Specialty Care Team Description 09/29/2019 Routine Obstetrics & Ninfa Diane, Visit Gynecology [facility] [address] [place] [phone] Health Maintenance Due Date Last Done Comments PAP SMEAR 01/05/2022 01/05/2019 DTaP,Tdap,and Td Vaccines (2 - Td) 06/30/2029 06/30/2019 INFLUENZA VACCINE Completed 02/20/2019 PNEUMOCOCCAL 0-64 YEARS COMBINED Aged Out No longer eligible based on SERIES patient's age to complete this topic documented as of this encounter Procedures Procedure Name Priority Date/Time Associated Diagnosis Comme nts POCT URINALYSIS W/O Routine 08/25/2019 38 weeks gestation of Results for this SPECIFIC GRAVITY procedure a re in the results section . documented in this encounter Results POCT URINALYSIS W/O SPECIFIC GRAVITY (08/25/2019) Pathologist Sig nature POCT PH U N/A [...] Diagnoses Diagnosis Supervision of high risk in ird trimester - Primary Unspecified high-risk 38 weeks gestation of state, incidental documented in this encounter documented as of this encounter
--- OUTSIDE RECORDS SUMMARY | 2019-09-13 07:38 | XMS REPORT | Summary of Care ---
:1990 Author Organization [facility] Address [address] [place] [address] Care Team Providers Name Role Phone Pcp, Patient Does Not Have A Primary Care Provider +1-000-00 0-0000 Encounter Details Date Type Department Care Team Description 08/31/2019 Orders Only [facility] Doctor Unassigned, No [address] [facility] [place] [address] [address] [place] [phone] Allergies Active Allergy Reactions Severity Noted Date [...] Treatment Date Type Specialty Care Team Description 08/31/2019 Nurse Visit Surgery Leeann Navarro M D [address] [place] [address] [phone] COVID-19 (Primary Nurse, Adc General Surgery Dx) 09/29/2019 Routine Obstetrics & Ninfa Diane, Visit Gynecology [facility] [address] [place] [address] [phone] Health Maintenance Due Date Last Done Comments PAP SMEAR 01/05/2022 01/05/2019 DTaP,Tdap,and Td Vaccines (2 - Td) 06/30/2029 06/30/2019 INFLUENZA VACCINE Completed 02/20/2019 PNEUMOCOCCAL 0-64 YEARS COMBINED Aged Out No longer eligible based on SERIES patient's age to complete this topic documented as of this encounter Procedures Procedure Name Priority Date/Time Associated Diagnosis Comme nts ASSIGNMENT OF BENEFITS Routine 08/31/2019 10:07 AM CDT documented in this encounter Results Not on filedocumented in this encounter Insurance Payer Benefit Plan / Group Subscriber ID Effective Dates Phone Address Type AETNA AETNA [facility] [id number] 2018-Present PPO AETNA [employer] AN AETNA [id number] System [id number] 2019-Present PPO documented as of this encounter
--- OUTSIDE RECORDS SUMMARY | 2019-09-13 07:39 | XMS REPORT | Summary of Care ---
:1990 Author Organization [facility] Address [address] [place] [id number] Care Team Providers Name Role Phone Pcp, Patient Does Not Have A Primary Care Provider +[id number] Reason for Referral (Routine) Status Reason Specialty Diagnoses / Procedures Referred By Salvatore prietoerred To Contact Contact New Request Diagnoses Gastroesophageal reflux disease, esophagitis presence not specified 39 weeks gestation of Supervision of high risk in third trimester Encounter for elective induction of labor Positive GBS test Leeann Navarro, NavarroLeeann, Obesity (BMI 30- 39.9) Liveborn infant, of ernandez , born in hospital by vaginal delivery Vacuum-assisted vaginal delivery heart rate deceleration, delivered, current hospitalization MD MILLER Procedures DISCHARGE FOLLOW-UP: PRIVATE PHYSICIAN [address] [place] [address] [facility] [address] [place] [address] Phone: Fax: Reason for Visit Auth/Cert Status Reason Specialty Diagnoses / Procedures Referred By Jackson muñoz Referred To Contact Obstetrics Diagnoses PREG [facility] Labor And Delivery [address] [place] [address] [place] [address] Phone: Fax: Encounter Details Date Type Department Care Team Description 09/01/2019 - Hospital Encounter ADC Labor and Leeann Navarro, 39 wee ks gestation 09/03/2019 Delivery Unit MD of [address] [place] [address] [place] [id number] [facility] [address] [place] [address] [phone] Allergies Active Allergy Reactions Severity Noted Date Comments Fluticasone Propionate Anaphylaxis 01/05/2019 Morphine Hives 01/05/2019 documented as of this encounter (statuses as of 09/03/2019) Medications Medication Sig Dispensed Refills Start Date End Date Status albuterol 90 Inhale 2 Puffs 8.5 g 1 01/26/2019 A ctive mcg/actuation inhaler every 6 (six) hours as needed for Wheezing or Shortness of Breath. vitamin w/FA Take 1 tablet 100 tablet 3 09/03/2019 Active tabletIndications: by mouth Gastroesophageal daily. reflux disease, esophagitis presence not specified, 39 weeks gestation of , Supervision of high risk in third trimester, Encounter for elective induction of labor, Positive GBS test, Obesity (BMI 30-39.9), Liveborn infant, of ernandez , born in hospital by vaginal delivery, Vacuum-assisted vaginal delivery, heart rate deceleration, delivered, current hospitalization docusate calcium 240 Take 1 capsule 60 capsule 1 09/03/2019 Active mg by mouth once capsuleIndications: daily as Gastroesophageal needed for reflux disease, Constipation. esophagitis presence not specified, 39 weeks gestation of , Supervision of high risk in third trimester, Encounter for elective induction of labor, Positive GBS test, Obesity (BMI 30-39.9), Liveborn , of ernandez , born in hospital by vaginal delivery, Vacuum-assisted vaginal delivery, heart rate deceleration, delivered, current hospitalization ferrous sulfate 325 Take 1 tablet 60 tablet 2 09/03/2019 Active mg (65 mg iron) by mouth 2 tabletIndications: (two) times Gastroesophageal daily. reflux disease, esophagitis presence not specified, 39 weeks gestation of , Supervision of high risk in third trimester, Encounter for elective induction of labor, Positive GBS test, Obesity (BMI 30-39.9), Liveborn infant, of ernandez , born in hospital by vaginal delivery, Vacuum-assisted vaginal delivery, heart rate deceleration, delivered, current hospitalization ibuprofen 600 mg Take 1 tablet 30 tablet 1 09/03/2019 Active tabletIndications: by mouth every Gastroesophageal 6 (six) hours reflux disease, as needed esophagitis presence (Pain). Take not specified, 39 with food or weeks gestation of milk. , Supervision of high risk in third trimester, Encounter for elective induction of labor, Positive GBS test, Obesity (BMI 30-39.9), Liveborn , of ernandez , born in hospital by vaginal delivery, Vacuum-assisted vaginal delivery, heart rate deceleration, delivered, current hospitalization vit Take by 0 09/03/19 Discont inued calc,iron,folic mouth. 20 ( VITAMIN ORAL) famotidine (PEPCID) Take 1 tablet 30 tablet 3 05/21/201909/02 Discontinued 20 mg by mouth 2 20 tabletIndications: 24 (two) times weeks gestation of daily. , Gastroesophageal reflux disease, esophagitis presence not specified doxylamine-pyridoxine 1po@HS.If not 120 tablet 1 06/16/2019 Discontinued , vit B6, (DICLEGIS) effective,2 20 10-10 mg per po@HS,if not tabletIndications: effective Nausea and vomiting 2po@hS&1po in during AM.If not prior to 22 weeks effective,2po@ gestation HS,1po in AM, & 1early PM. Max 4 tab/day. documented as of this encounter (statuses as of 09/03/2019) Active Problems Problem Noted Date [facility] [place]andez [facility] 09[facility]2019 delivery Vacuum-assisted vaginal delivery 09/02/2019 heart rate deceleration, delivered, current hosp italization 09/02/2019 Encounter for elective induction of labor 09/01/2019 Positive GBS test 09/01/2019 39 weeks gestation of 09/01/2019 Obesity (BMI 30-39.9) 09/01/2019 Gastroesophageal reflux disease, esophagitis presence not specified 05/21/2019 Supervision of high risk in third trimester 05/21/2019 Comments Yes documented as of this encounter (statuses as of 09/03/2019) Resolved Problems Problem Noted Date Resolved Date 39 weeks gestation of 05/21/2019 08/18/19 20 Nausea and vomiting during prior to 22 weeks 02/2005/21/2019 gestation documented as of this encounter (statuses as of 09/03/2019) Immunizations Name Administration Dates Next Due Influenza Virus Vaccine 02/20/2019 TDAP (ADACEL) VACCINE 06/30/2019 documented as of this encounter Social History Tobacco Use Types Packs/Day Years Used Date Never Smoker Smokeless Tobacco: Never Used Alcohol Use Drinks/Week oz/Week Comments Not Currently Comments Yes Sex Assigned at Date Recorded Not on file Job Start Date Occupation Industry Not on file Not on file Not on file Travel History Travel Start Travel End No recent travel history available. documented as of this encounter Last Filed Vital Signs Vital Sign Reading Time Taken Comments Blood Pressure 100/60 09/03/2019 11:45 AM CDT Pulse 107 09/03/2019 11:45 AM CDT Temperature 36.8 C (98.3 F) 09/03/2019 11:45 AM CDT Respiratory Rate 16 09/03/2019 11:45 AM CDT Oxygen Saturation 97% 09/03/2019 8:45 AM CDT Inhaled Oxygen Concentration - - Weight 74.6 kg (164 lb 6.4 oz) 09/01/2019 3:00 PM CDT Height 157.5 cm (5' 2") 09/01/2019 3:00 PM CDT Body Mass Index 30.07 09/01/2019 3:00 PM CDT documented in this encounter Discharge Instructions Love Craig RN - 09/03/2019Multidisciplinary Discharge Instructions (may include diet, dressing changes, activity limits, written materials given to patient: DIET: Eat a well balanced diet; drink 6-8 glasses of fluids daily; eat fruits and green, leafy vegetables. DAILY ACTIVITIES: 1. As much as you feel able to do. Rest when you are tired. 2. Limitations: Specify; No heavy lifting other than your baby for 4 weeks if you had surgery. TREATMENT AT HOME 1. Use a well-fitting bra to prevent breast engorgement 2. Resume intercourse as instructed by your physician. 3. Do not use douches or tampons for four weeks. 4. To help prevent urinary tract infection; after each urination and bowel movement, wipe and dry from front to back and change conrad pad. 5. Follow discharge instructions regarding baby care. 6. Follow family planning instructions. IMMEDIATE TREATMENT - Call Clinic or Your Physician 1. Increase in pain and tenderness of uterus. 2. Increased vaginal bleeding (bright red blood which soaks 2 pads in 1 hour or pass large clots). 3. Foul smelling vaginal discharge. 4. Burning in the tube that empties the urine from the bladder. 5. Painful breast engorgement or cracked nipples. 6. Pain, discharges, or gaping incision. 7. Temperature greater than 38.0C or 100.4F 8. Pain and tenderness of calf or thigh muscles. 9. No bowel movements in 4 days. For Problems or Questions Call: OB Clinic Family Planning [phone] or Emergency: Go to the closest emergency room or call 911 {DC INSTRUCTIONS L&D:[id number]} For worsening symptoms/changing condition/problems or questions call: Non-emergency/urgent: Access Center at or [facility] [phone] [facility] Labor and Delivery: Emergency: Go to the closest emergency room or call 911 For Patients ? All patients should call the [facility] Access Center at to determine the best way to receive caretelevisit (preferred when medically appropriate) or in-person appointment at the most appropriate location. ? Current visitation guidelines are available online. Resources ? [facility] Access Center for clinical appointments and 10/12 Nurse triage line: . ? [email or web address] Protecting Everyones Health Reminders for minimizing your risk of catching or spreading COVID-19: ? Avoid groups of 10 or more people and avoid people who are ill with respiratory symptoms. ? Thoroughly wash your hands frequently, for at least 20 seconds with soap and water. Any kind of soap will work. ? Use hand director china with minimum 60% alcohol content if soap and water are not available. ? Cough/sneeze into a tissue and dispose of it right away. If you do not have a tissue, cough/sneezeinto your elbow. ? Avoid touching your eyes, nose or mouthespecially with unwashed hands. ? Use disinfectant wipes or catch basin cleaner on frequently touched or shared surfaces. ? Do not share dishes, cups/glasses, utensils or towels. ? STAY HOME IF YOU ARE SICK. Guiding Principles ? Protecting patients, students, employees, volunteers and the community ? Preventing exposures through social distancing and limiting non-clinical activity on our campuses ? Preserving access to the outstanding care in our hospitals and clinics ? Sustaining our financial stability for the long-term success of our mission. Thank you for your help in planning, preparing and responding to the COVID-19 public health threat. Sent by the Office of [employer] and [employer], on behalf of President rosemary Carrington and the [facility] Health Incident Command leadership. AttachmentsThe following attachments cannot be sent through Care Everywhere. Vaginal , After a (Qatari)Sitz Bath, Taking a (Qatari) Depression, Understanding (Qatari)Pain After Childbirth (Qatari), Breast Care After (Qatari)documented in this encounter Plan of Treatment Date Type Specialty Care Team Description 09/29/2019 Routine Obstetrics & Ninfa Diane, Visit Gynecology [address] [address] [id number] Health Maintenance Due Date Last Done Comments PAP SMEAR 01/05/2022 01/05/2019 DTaP,Tdap,and Td Vaccines (2 - Td) 06/30/2029 06/30/2019 INFLUENZA VACCINE Completed 02/20/2019 PNEUMOCOCCAL 0-64 YEARS COMBINED Aged Out No longer eligible based on SERIES patient's age to complete this topic documented as of this encounter Procedures Procedure Name Priority Date/Time Associated Comments Diagnosis CBC WITH DIFFERENTIAL Routine 09/03/2019 4:20 Re sults for this AM CDT procedure are i n the results section. CBC WITH DIFFERENTIAL Routine 09/03/2019 4:20 Re sults for this AM CDT procedure are i n the results section. VENOUS CORD GAS Routine 09/02/2019 10:39 Results for this AM CDT procedure are i n the results section. ARTERIAL CORD GAS Routine 09/02/2019 10:39 Result s for this AM CDT procedure are i n the results section. HIV 1/2 AG-AB WITH Routine 09/01/2019 3:11 Resul ts for this REFLEX PM CDT procedure are i n the results section. CBC WITH DIFFERENTIAL TAMMY 09/01/2019 3:11 Re sults for this PM CDT procedure are i n the results section. ADC OR MIRIAM ONLY - TAMMY 09/01/2019 3:11 Re sults for this RPR PM CDT procedure are i n the results section. HEPATITIS B SURFACE [facility] 09/01/2019 3:11 Resu lts for this ANTIGEN PM CDT procedure are i n the results section. CBC WITH DIFFERENTIAL [facility] 09/01/2019 3:11 Re sults for this PM CDT procedure are i n the results section. RHO (D) IMMUNE Routine 09/01/2019 3:00 Results f or this GLOBULIN PM CDT procedure are i n the results section. HB ABO GROUPING [facility] 09/01/2019 3:00 Results for this PM CDT procedure are i n the results section. documented in this encounter Results CBC WITH DIFFERENTIAL (09/03/2019 4:20 AM CDT) Pathologist Sig nature WBC 10.00 4.30 - 11.10 [facility] 10*3/L [facility] RBC 2.94 (L) 3.93 - 5.25 [facility] 10*6/L [facility] HGB 9.2 (L) 11.6 - 15.0 [facility] g/dL [facility] HCT 27.4 (L) 35.7 - 45.2 % [facility] MCV 93.2 80.6 - 95.5 fL [facility] MCH 31.3 25.9 - 32.8 pg [facility] MCHC 33.6 31.6 - 35.1 [facility] g/dL [facility] RDW-SD 48.8 39.0 - 49.9 fL [facility] RDW-CV 14.4 12.0 - 15.5 % [facility] PLT 128 (L) 166 - 358 [facility] 10*3/L [facility] MPV 11.6 9.5 - 12.9 fL [facility] NRBC/100 WBC 0.0 0.0 - 10.0 /100 [facility] WBCs [facility] NRBC x10^3 <0.01 10*3/L [facility] GRAN MAT (NEUT) % 73.7 % [facility] IMM GRAN % 0.90 % [facility] LYMPH % 18.8 % [facility] MONO % 6.0 % [facility] EOS % 0.5 % [facility] BASO % 0.1 % [facility] GRAN MAT x10^3(ANC) 7.37 (H) 1.88 - 7.09 [facility] 10*3/uL [facility] IMM GRAN x10^3 0.09 (H) 0.00 - 0.06 [facility] 10*3/uL [facility] LYMPH x10^3 1.88 1.32 - 3.29 [facility] 10*3/uL [facility] MONO x10^3 0.60 0.33 - 0.92 [facility] 10*3/uL [facility] EOS x10^3 0.05 0.03 - 0.39 [facility] 10*3/uL [facility] BASO x10^3 <0.03 0.01 - 0.[address]uL [facility] Specimen Blood - ARM, LEFT Performing Organization Address City/[facility] Phone Number [facility] CLIA: [id number], [address] [place] [address] Venous Cord Gas (09/02/2019 10:39 AM CDT) Pathologist Sig nature VENOUS BASE EXCESS, -7.6 mEq/L [facility] VENOUS PH, CORD 7.19 (L) 7.25 - 7.45 [facility] VENOUS PC02, CORD 58 (H) 27 - 49 mmHg [facility] VENOUS PO2, CORD 20 17 - 41 mmHg [facility] VENOUS BICARBONATE, 22 12 - 29 mEq/L [facility] Specimen Blood - CORD Performing Organization Address City/[facility] Phone Number [facility] CLIA: [id number], [address] [place] [address] Arterial Cord Gas (09/02/2019 10:39 AM CDT) Pathologist Sig nature BASE EXCESS, CORD -12.9 mEq/L [facility] AC PH, CORD (BEAKER) 7.10 (L) 7.18 - 7.38 [facility] PC02, CORD 59 32 - 66 mmHg [facility] PO2, CORD 28 10 - 30 mmHg [facility] BICARBONATE, CORD 18 17 - 27 mEq/L [facility] Specimen Blood - CORD Performing Organization Address City/State/Zipcode Phone Number [facility] CLIA: [id number], [address] [place] [address] CBC WITH DIFFERENTIAL (09/01/2019 3:11 PM CDT) [facility] WBC 6.72 4.30 - 11.10 [facility] 10*3/L [facility] RBC 3.85 (L) 3.93 - 5.25 [facility] 10*6/L [facility] HGB 11.8 11.6 - 15.0 [facility] g/dL [facility] HCT 35.2 (L) 35.7 - 45.2 % [facility] MCV 91.4 80.6 - 95.5 fL [facility] MCH 30.6 25.9 - 32.8 pg [facility] MCHC 33.5 31.6 - 35.1 [facility] g/dL [facility] RDW-SD 47.7 39.0 - 49.9 fL [facility] RDW-CV 14.1 12.0 - 15.5 % [facility] PLT 199 166 - 358 [facility] 10*3/L [facility] MPV 11.5 9.5 - 12.9 fL [facility] NRBC/100 WBC 0.0 0.0 - 10.0 /100 [facility] WBCs [facility] NRBC x10^3 <0.01 10*3/L [facility] GRAN MAT (NEUT) % 72.3 % [facility] IMM GRAN % 0.60 % [facility] LYMPH % 19.8 % [facility] MONO % 7.1 % [facility] EOS % 0.1 % [facility] BASO % 0.1 % [facility] GRAN MAT x10^3(ANC) 4.85 1.88 - 7.09 [facility] 10*3/uL HOSPITAL LABORATORY IMM GRAN x10^3 0.04 0.00 - 0.06 [facility] 10*3/uL HOSPITAL LAB[facility]ORY LYMPH x10^3 1.33 1.32 - 3.29 [facility] 10*3/uL HOSPITAL LABORATORY MONO x10^3 0.48 0.33 - 0.92 [facility] 10*3/uL HOSPITAL LABORATORY EOS x10^3 <0.03 (L) 0.03 - 0.39 [facility] 10*3/uL [facility] BASO x10^3 <0.03 0.01 - 0.07 [facility] 10*3/uL HOSPITAL LABORATORY Specimen Blood - WRIST, RIGHT Performing Organization Address [facility] Phone Number [facility] CLIA: [id number], [address] [place], [place] [address] HIV 1/2 AG-AB WITH REFLEX (09/01/2019 3:11 PM CDT) Pathologist Sig nature HIV 1/2 Ag-Ab with Negative Negative [facility] LABORATORY HIV Semi-quantitative 0.06 [facility] Specimen Blood - WRIST, RIGHT Narrative Performed At Non-reactive for HIV-1 antigen and HIV-1/HIV-2 [facility] antibodies. No laboratory evidence of HIV infection. Repeat in 2-4 weeks if acute HIV infection is suspected. Performing Organization Address [facility] Phone Number [facility] CLIA: [id number], [address] [place], [place] [address] ADC OR MIRIAM ONLY - RPR (09/01/2019 3:11 PM CDT) Pathologist Sig nature RPR (Qualitative) Nonreactive Nonreactive [facility] Specimen Blood - WRIST, RIGHT Performing Organization Address [facility] Phone Number [facility] CLIA: [id number], [address] [place], [place] [address] Hepatitis B Surface Antigen (09/01/2019 3:11 PM CDT) Pathologist Sig nature HBsAg Negative Negative [facility] HBsAg 0.05 [facility] Semi-Quantitative SERVICES Specimen Blood - WRIST, RIGHT Performing Organization Address City/[facility]/Zipcode Phone Number [facility] CLIA: [id number], [address] [place], [place] [address] RHO (D) IMMUNE GLOBULIN (09/01/2019 3:00 PM CDT) Pathologist Sig nature RHIG CANDIDATE? No- see comment LAB Comment: Patient is not a candidate for RhIg- Patient is Rh Pos itive. Performed at [facility] Laboratory Services - [facility] Blood Bank [address] [place] [address] Toll Free: [phone] CLIA No. [id number] Specimen Blood - VENOUS Performing Organization Address City/[facility] Phone Number [facility] Type and Screen - ONCE TAMMY (09/01/2019 3:00 PM CDT) Pathologist Sig nature ABO & RH O Positive LAB Comment: Performed at [facility] Laboratory Services - [facility] Blood Bank [address] [place], [place] [address] Toll Free: [phone] CLIA No. [id number] IAT Negative LAB Comment: Performed at [facility] Laboratory [facility] - [facility] Blood Bank [address] [place] [id number] Toll Free: [phone] CLIA No. [id number] Specimen Blood Performing Organization Address City/State/Zipcode Phone Number [facility] documented in this encounter Visit Diagnoses Diagnosis 39 weeks gestation of - Primar y state, incidental Gastroesophageal reflux disease, esophag itis presence not specified Supervision of high risk in th ird trimester Unspecified high-risk Encounter for elective induction of labo r Positive GBS test Obesity (BMI 30-39.9) Obesity, unspecified Liveborn infant, of ernandez , born in hospital by vaginal delivery Vacuum-assisted vaginal delivery heart rate deceleration, delivered , current hospitalization Abnormality in heart rate/rhythm, delivered, with or without mention of antepartum condition documented in this encounter Administered Medications Medication Order MAR Action Action Date Dose Rate Site acetaminophen (TYLENOL) tablet Given 09/02/2019 9:58 PM CDT 650 mg 650 mg 650 mg, Oral, Q6HPRN, Starting Sat09/02/19 at 1657, Until Discontinued, Routine, Pain (scale 1-3) benzocaine-menthol (DERMOPLAST) 20-0.5 % topical Given 09/01 5:24 PM CDT spray Topical, PRN, Starting Sat09/02/19 at 1657, Until Discontinued, Routine, Perineum discomfort HYDROcodone-acetaminophen (NORCO 5) 5-325 Given 2019 7:51 AM CDT 1 tablet mg tablet 1 tablet 1 tablet, Oral, Q6HPRN, Starting Sat09/02/19 at 1657, Until Discontinued, Routine, Pain (scale 7-10) ibuprofen (IBU) tablet 600 mg Given 09/03/2019 11:41 AM CDT 600 mg 600 mg, Oral, Q6HPRN, Starting Sat09/02/19 at 1657, Until Discontinued, Routine, Pain (scale 4-6) Given 09/02/2019 5:24 PM CDT 600 mg vitamin w/FA (PRENATABS RX) Given 09/03/2019 8:43 AM C DT 1 tablet tablet 1 tablet 1 tablet, Oral, DAILY, First dose on Hayley 09/03/19 at 0900, Until Discontinued, Routine Medication Order MAR Action Action Date Dose Rate Site D5W-LR IV infusion 1,000 mL New Bag 09/01/2019 10:53 PM CDT 1,000 mL 125 mL/hr at 125 mL/hr, IV Infusion, CONTINUOUS, Starting Sat09/01/19 at 1500, Until Sat09/02/19 at 1657, Routine New Bag 09/01/2019 3:12 PM CDT 1,000 mL 125 mL/hr FENTanyl PF (SUBLIMAZE (PF)) injection 75 Given 09/02/2019 5:47 AM CDT 100 mcg mcg 75 mcg, Slow IV Push, Q1HPRN, Starting Sat09/01/19 at 1459, Until Sat09/02/19 at 1657, Routine, contraction pain without an epidural and SVE < 8 cm and Cat I strip Given 09/02/2019 4:10 AM CDT 100 mcg Given 09/02/2019 2:02 AM CDT 75 mcg lactated ringers IV infusion 500 New Bag 09/02/2019 7:11 AM C DT 500 mL 999 mL/hr mL at 999 mL/hr, 500 mL, IV Infusion, PRN - SEE INSTRUCTIONS, Starting Sat09/01/19 at 1459, Until Sat09/02/19 at 1657, Routine New Bag 09/01/2019 3:39 PM CDT 500 mL 999 mL/hr LR 1000 mL + oxytocin 20 Rate Change 09/02/2019 10:27 AM 6 franchesca-u nits/min 18 mL/hr units IV Solution CDT 4 franchesca-units/min (12 mL/hr), IV Infusion, CONTINUOUS, Starting Sat09/01/19 at 1500 Rate Change 09/02/2019 8:33 AM CDT 4 franchesca-units/min 12 mL/hr New Bag 09/02/2019 8:22 AM CDT 6 franchesca-units/min 18 mL/hr LR 1000 mL + oxytocin 20 Given 09/02/2019 10:35 AM CDT 0.002 Uni ts/min 6 mL/hr units IV Solution 2 franchesca-units/min (6 mL/hr), IV Infusion, ONCE, Sat09/02/19 at 1700, For 1 dose, X 1 liter only., penicillin g pot in dextrose Given 09/02/2019 7:29 AM CDT 3 Million Units 50 mL/hr 3 million unit/50 mL RTU iv piggyback 3 Million Units 3 Million Units, IV Piggyback, Q4H ABX, First dose on Sat09/02/19 at 0400, Until Discontinued, 50 mL, Reason for Anti-Infective: Empiric Non-Surgical Prophylaxis, Duration of therapy: 72 hours, Specific indication: GBBS Prophylaxis Given 09/02/2019 4:06 AM CDT 3 Million Units 50 mL/hr penicillin g potassium 5 Million Given 09/02/2019 12:00 AM CDT 5 Million Units Units in NaCl 0.9% (NS) 100 mL MINI-BAG 5 Million Units, IV Piggyback, ONCE, 1 dose, Sat09/02/19 at 0000, 100 mL, Reason for Anti-Infective: Empiric Non-Surgical Prophylaxis, Duration of therapy: 72 hours, Specific indication: GBBS Prophylaxis proMETHazine (PHENERGAN) 25 mg in NaCl 0.9% Given 09/02/2019 1:45 AM CDT 25 mg (NS) 50 mL piggyback 25 mg, IV Piggyback, Q6HPRN, Starting Sat09/01/19 at 1459, Until Sat09/02/19 at 1657, 50 mL documented in this encounter documented as of this encounter
--- OUTSIDE RECORDS SUMMARY | 2019-09-13 07:40 | XMS REPORT | Summary of Care ---
:1990 Author Organization [facility] Address [address] [place] [address] Care Team Providers Name Role Phone Pcp, Patient Does Not Have A Primary Care Provider +[id number] 0-0000 Reason for Visit Reason Comments NURSE VISIT COVID TESTING Encounter Details Date Type Department Care Team Description 08/31/2019 Nurse Visit [facility] Surgical NavarroLeeann am, MD [address] [place] [address] DR. Hernández [address] [place] [address] COVID-19 (Primary Dx) Specialties - [facility] on Nurse, [facility] General Surgery [address] [place] [address], [address] [place] [address] Allergies Active Allergy Reactions Severity Noted Date Comments Fluticasone Propionate Anaphylaxis 01/05/2019 Morphine Hives 01/05/2019 documented as of this encounter (statuses as of 09/04/2019) Medications Medication Sig Dispensed Refills Start Date End Date Status albuterol 90 Inhale 2 Puffs 8.5 g 1 01/26/2019 A ctive mcg/actuation inhaler every 6 (six) hours as needed for Wheezing or Shortness of Breath. vit Take by 0 09/03/19 Discont inued [...] as of this encounter (statuses as of 09/04/2019) Active Problems Problem Noted Date Liveborn , of ernandez , [facility] by vaginal 09/02/2019 delivery Vacuum-assisted vaginal delivery 09/02/2019 heart rate deceleration, delivered, current hosp italization 09/02/2019 Encounter for elective induction of labor 09/01/2019 Positive GBS test 09/01/2019 39 weeks gestation of 09/01/2019 Obesity (BMI 30-39.9) 09/01/2019 Gastroesophageal reflux disease, esophagitis presence not specified 05/21/2019 Supervision of high risk in third trimester 05/21/2019 Comments Yes documented as of this encounter (statuses as of 09/04/2019) Resolved Problems Problem Noted Date Resolved Date 39 weeks gestation of 05/21/2019 08/18/19 20 Nausea and vomiting during prior to 22 weeks 02/2005/21/2019 gestation documented as of this encounter (statuses as of 09/04/2019) Immunizations Name Administration Dates Next Due Influenza [...] Sign Reading Time Taken Comments Blood Pressure 106/73 08/31/2019 9:54 AM CDT Pulse 80 08/31/2019 9:54 AM CDT Temperature 36.8 C (98.3 F) 08/31/2019 9:54 AM CDT Respiratory Rate 20 08/31/2019 9:54 AM CDT Oxygen Saturation 98% 08/31/2019 9:54 AM CDT Inhaled Oxygen Concentration - - Weight 75.3 kg (166 lb) 08/31/2019 9:54 AM CDT Height 172.7 cm (5' 8") 08/31/2019 9:54 AM CDT Body Mass Index 25.24 08/31/2019 9:54 AM CDT documented in this encounter Progress Notes Zully Pierce RN - 08/31/2019 10:15 AM CDTAaaliyah Chavez is a 28 year old female comes to clinic independent in ambulation for preop covid testing. Pt comes alone . Pt in NAD w/ pain reported 0. Pt preferred language is Salvadorean. Pt. denies fall in last 12 months. Allergies and medications reviewed and updated. documented in this encounter Plan of Treatment Date Type Specialty Care Team Description 09/29/2019 Routine Obstetrics & Ninfa Diane, Visit Gynecology [facility] [address] [place] [id number] Health Maintenance Due Date Last Done Comments PAP SMEAR 01/05/2022 01/05/2019 DTaP,Tdap,and Td Vaccines (2 - Td) 06/30/2029 06/30/2019 INFLUENZA VACCINE Completed 02/20/2019 PNEUMOCOCCAL 0-64 YEARS COMBINED Aged Out No longer eligible based on SERIES patient's age to complete this topic documented as of this encounter Procedures Procedure Name Priority Date/Time Associated Comments Diagnosis CORONAVIRUS COVID-19 Routine 08/31/2019 9:52 COVID-19 Res ults for this TESTING AM CDT procedure are i n the results section. documented in this encounter Results CORONAVIRUS COVID-19 TESTING (08/31/2019 9:52 AM CDT) Pathologist Sig nature SARS-CoV-2 Not Detected Not Detected [facility] Specimen Swab - NASOPHARYNGEAL SWAB Narrative Performed At [facility] COVID-19 Assay is an isothermal nucleic [facility] acid amplification test intended for the qualitative detection of nucleic acid from SARS-CoV-2 viral RNA in nasopharyngeal (MULESER) specimens. It is used under Emergency Use Authorization (EUA) by FDA. The limit of detection (LOD) of the assay is 125 Genome Equivalents/mL. A positive result is indicative of the presence of SARS-CoV-2 RNA. Clinical correlation with patient history and other diagnostic information is necessary to determine patient infection status. A negative (Not Detected) result does not preclude SARS-CoV-2 infection. Clinical correlation with patient history and other diagnostic information should be used in patient management decisions. Invalid: Please collect a new specimen for repeat patient testing if clinically indicated. Performing Organization Address City/State/Zipcode Phone Number [facility] CLIA: [id number], [address] [place], [place] [address] documented in this encounter Visit Diagnoses Diagnosis COVID-19 - Primary documented in this encounter documented as of this encounter
--- OUTSIDE RECORDS SUMMARY | 2019-09-13 07:40 | XMS REPORT | Summary of Care ---
:1990 Author Organization [facility] Address [address] [place] [address] Care Team Providers Name Role Phone Pcp, Patient Does Not Have A Primary Care Provider +[phone] 0-0000 Encounter Details Date Type Department Care Team Description 09/01/2019 Orders Only [facility] Doctor Unassigned, No [address] [facility] Name [place] [id number] [address] [place] [id number] Allergies Active Allergy Reactions Severity Noted Date [...] of Breath. vitamin w/FA Take 1 tablet by 100 tablet 3 09/03/2019 Active tabletIndications: mouth daily. Gastroesophageal reflux disease, esophagitis presence not specified, 39 weeks gestation of , Supervision of high risk in third trimester, Encounter for elective induction of labor, Positive GBS test, Obesity (BMI 30-39.9), Liveborn , of ernandez , born in hospital by vaginal delivery, Vacuum-assisted vaginal delivery, heart rate deceleration, delivered, current hospitalization docusate calcium 240 mg Take 1 capsule 60 capsule 1 09/03/2019 Active capsuleIndications: by mouth once Gastroesophageal reflux daily as needed disease, esophagitis for presence not specified, Constipation. 39 weeks gestation of , Supervision of high risk in third trimester, Encounter for elective induction of labor, Positive GBS test, Obesity (BMI 30-39.9), Liveborn , of ernandez , born in hospital by vaginal delivery, Vacuum-assisted vaginal delivery, heart rate deceleration, delivered, current hospitalization ferrous sulfate 325 mg Take 1 tablet by 60 tablet 2 09/03/2019 Active (65 mg iron) mouth 2 (two) tabletIndications: times daily. Gastroesophageal reflux disease, esophagitis presence not specified, 39 weeks gestation of , Supervision of high risk in third trimester, Encounter for elective induction of labor, Positive GBS test, Obesity (BMI 30-39.9), Liveborn infant, of ernandez , born in hospital by vaginal delivery, Vacuum-assisted vaginal delivery, heart rate deceleration, delivered, current hospitalization ibuprofen 600 mg Take 1 tablet by 30 tablet 1 09/03/2019 Active tabletIndications: mouth every 6 Gastroesophageal reflux (six) hours as disease, esophagitis needed (Pain). presence not specified, Take with food 39 weeks gestation of or milk. , Supervision of high risk in third trimester, Encounter for elective induction of labor, Positive GBS test, Obesity (BMI 30-39.9), Liveborn infant, of ernandez , born in hospital by vaginal delivery, Vacuum-assisted vaginal delivery, heart rate deceleration, delivered, current hospitalization documented as of this encounter (statuses as of 09/04/2019) Active Problems Problem Noted Date Liveborn , of ernandez , [facility] by vaginal 09/02/2019 delivery Vacuum-assisted vaginal delivery [...] Obstetrics & Ninfa Diane, Visit Gynecology [facility] [address] [place] [phone] Health Maintenance Due Date Last Done Comments PAP SMEAR 01/05/2022 01/05/2019 DTaP,Tdap,and Td Vaccines (2 - Td) 06/30/2029 06/30/2019 INFLUENZA VACCINE Completed 02/20/2019 PNEUMOCOCCAL 0-64 YEARS COMBINED Aged Out No longer eligible based on SERIES patient's age to complete this topic documented as of this encounter Procedures Procedure Name Priority Date/Time Associated Diagnosis Comme nts HOSPITAL ADMISSION Routine 09/01/2019 12:01 AM CDT documented in this encounter Results Not on filedocumented in this encounter Additional Health Concerns Infection Noted Time Resolved Time COVID-19 Rule Out 09/01/2019 7:34 AM CDT 09/01/2019 7:34 AM CDT documented as of this encounter Insurance Payer Benefit Plan / Group Subscriber ID Effective Dates Phone Address Type AETNA AETNA [facility] [id number] 2018-Present PPO AETNA [employer] AN AETNA [employer] [id number] 2019-Present PPO documented as of this encounter
--- OUTSIDE RECORDS SUMMARY | 2019-09-13 07:40 | XMS REPORT | Summary of Care ---
:1990 Author Organization [facility] Address [address] [place] [address] Care Team Providers Name Role Phone Pcp, Patient Does Not Have A Primary Care Provider +1-000-00 0-0000 Reason for Visit Reason Comments Rx Concern/Question Encounter Details Date Type Department Care Team Description 09/09/2019 Telephone [facility] Women's NavarroLeeann MD Rx Concern/Question [facility] [place] [address] [address] [place] [id number] [place] [address] [phone] Allergies Active Allergy Reactions Severity Noted Date Comments Fluticasone Propionate Anaphylaxis 01/05/2019 Morphine Hives 01/05/2019 documented as of this encounter (statuses as of 09/10/2019) Medications Medication Sig Dispensed Refills Start Date [...] as of this encounter (statuses as of 09/10/2019) Active Problems Problem Noted Date Liveborn , [...] of high risk in third trimester 05/21/2019 documented as of this encounter (statuses as of 09/10/2019) Resolved Problems Problem Noted Date Resolved Date 39 weeks gestation of 05/21/2019 08/18/19 20 Nausea and vomiting during prior to 22 weeks 02/2005/21/2019 gestation documented as of this encounter (statuses as of 09/10/2019) Immunizations Name Administration Dates Next Due Influenza Virus Vaccine 02/20/2019 TDAP (ADACEL) VACCINE 06/30/2019 documented as of this encounter Social History Tobacco Use Types Packs/Day Years Used Date Never Smoker Smokeless Tobacco: Never Used Alcohol Use Drinks/Week oz/Week Comments Not Currently Sex Assigned at Date Recorded Not on [...] Obstetrics & Ninfa Diane, Visit Gynecology [facility] [address] [place] [phone] Health Maintenance Due Date Last Done [...] Effective Dates Phone Address Type AETNA AETNA [facility] [id number] 2018-Present PPO AETNA [employer] AN AETNA [employer] [id number] 2019-Present PPO documented as of this encounter
--- NOTE | 2019-09-13 08:46 | ER ---
Nurse's Notes [facility] Name: Sindy Chavez Age: 28 yrs Sex: Female : 1990 Arrival Date: 09/13/2019 Time: 07:38 Bed 5 Private MD: Teo Arellano Diagnosis: Urticaria Presentation: 09/12 07:50 Chief complaint: Hives on torso, legs, and face x 2 days. Seen in ED yesterday for same hb s/s, has not yet filled rx. Benadryl 50 mg PO administered 1 hr [employer]. Coronavirus screen: Ebola Screen: No symptoms or risks identified at this time. 07:50 Method Of Arrival: Ambulatory 07:50 Onset: The symptoms/episode began/occurred 2 day(s) ago. Anaphylaxis evaluation, the patient reports or I have noted the following symptoms which indicate a significant risk of anaphylaxis:. Initial Sepsis Screen: Does the patient meet any 2 criteria? No. Patient's initial sepsis screen is negative. Does the patient have a suspected source of infection? No. Patient's initial sepsis screen is negative. Risk Assessment: Do you want to hurt yourself or someone else? Patient reports no desire to harm self or others. Onset of symptoms was September 12, 2019. 07:50 Acuity: AVIS 4 hb Historical: - Allergies: 08:04 Flonase; hb 08:04 Morphine; hb 08:04 Tylenol; hb - PMHx: 08:04 Asthma; hb - PSHx: 08:04 None; hb - Immunization history:: Adult Immunizations up to date. - Social history:: Smoking status: Patient denies any tobacco usage or history of. - Family history:: not pertinent. Screenin:50 Abuse screen: Denies threats or abuse. Nutritional screening: No deficits noted. em Tuberculosis screening: No symptoms or risk factors identified. Fall Risk None identified. Assessment: 08:50 General: Appears in no apparent distress. comfortable, Behavior is calm, cooperative, em appropriate for age, Denies fever. Pain: Denies pain. Neuro: Level of Consciousness is awake, alert, obeys commands, Oriented to person, place, time, situation, Appropriate for age. Cardiovascular: Capillary refill < 3 seconds Patient's skin is warm and dry. Respiratory: Airway is patent Respiratory effort is even, unlabored, Respiratory pattern is regular, symmetrical, Breath sounds are clear bilaterally. Denies shortness of breath labored breathing. Derm: Skin is intact, is healthy with good turgor, Skin is Rash noted that is itchy, urticaria, on face, abdomen, pelvis, mouth and neck Reports burning, itching, tingling. Musculoskeletal: Capillary refill < 3 seconds, Range of motion: intact in all extremities. Vital Signs: 07:50 BP 144 / 88; Pulse 89; Resp 16; Temp 97.7; Pulse Ox 99% ; Weight 68.04 kg; Height 5 ft. hb 2 in. (157.48 cm); Pain 0/10; 07:50 Body Mass Index 27.44 (68.04 kg, 157.48 cm) hb ED Course: 07:38 Patient arrived in ED. mr 07:39 Teo Arellano MD is Private Physician. mr 07:45 Gurpreet Branch MD is Attending Physician. dang 08:03 Triage completed. hb 08:05 Arm band placed on. hb 08:20 Sarmad Blanco, ALVIN is Primary Nurse. em 08:46 Teo Arellano MD is Referral Physician. dang 08:50 Patient has correct armband on for positive identification. Bed in low position. Call em light in reach. 09:04 No provider procedures requiring assistance completed. Patient did not have IV access em during this emergency room visit. Administered Medications: 08:40 CANCELLED (Duplicate Order): Pepcid 20 mg PO once dang 09:00 Drug: Benadryl 25 mg Route: PO; em 09:07 Follow up: Response: No adverse reaction em 09:00 Drug: predniSONE 60 mg Route: PO; em 09:07 Follow up: Response: No adverse reaction em 09:00 Drug: Pepcid 40 mg Route: PO; em 09:07 Follow up: Response: No adverse reaction em Outcome: 08:46 Discharge ordered by . dang 09:04 Discharged to home ambulatory. em 09:04 Condition: good 09:04 Discharge instructions given to patient, Instructed on discharge instructions, follow up and referral plans. medication usage, Demonstrated understanding of instructions, follow-up care, medications, Prescriptions given X 3. 09:08 Patient left the ED. em Signatures: Gurpreet Branch MD MD cha Rivera, Mary mr Sarmad Blanco, RN RN em Dasilva, Shalonda, RN RN hb
--- NOTE | 2019-09-13 08:47 | EDPHYS ---
Physician Documentation [facility] Name: Sindy Chavez Age: 28 yrs Sex: Female : 1990 Arrival Date: 09/13/2019 Time: 07:38 Bed 5 Private MD: Teo Arellano ED Physician Gurpreet Branch HPI: 09/12 08:41 This 28 yrs old Female presents to ER via Ambulatory with complaints of Hives. dang 08:41 The patient's rash thought to be caused by an unknown cause. The rash is located on the dang body diffusely. The rash can be described as urticarial. Onset: The symptoms/episode began/occurred 2 day(s) ago. Associated signs and symptoms: Pertinent positives: burning sensation, itching. Severity of symptoms: At their worst the symptoms were moderate in the emergency department the symptoms are unchanged. Treatment given at home: Benadryl. The patient has not experienced similar symptoms in the past. Historical: - Allergies: 08:04 Flonase; hb 08:04 Morphine; hb 08:04 Tylenol; hb - PMHx: 08:04 Asthma; hb - PSHx: 08:04 None; hb - Immunization history:: Adult Immunizations up to date. - Social history:: Smoking status: Patient denies any tobacco usage or history of. - Family history:: not pertinent. ROS: 08:41 Constitutional: Negative for fever, chills, and weight loss, Eyes: Negative for injury, dang pain, redness, and discharge, ENT: Negative for injury, pain, and discharge, Neck: Negative for injury, pain, and swelling, Cardiovascular: Negative for chest pain, palpitations, and edema, Respiratory: Negative for shortness of breath, cough, wheezing, and pleuritic chest pain, Abdomen/GI: Negative for abdominal pain, nausea, vomiting, diarrhea, and constipation, Back: Negative for injury and pain, : Negative for injury, bleeding, discharge, and swelling, MS/Extremity: Negative for injury and deformity, Neuro: Negative for headache, weakness, numbness, tingling, and seizure, Psych: Negative for depression, anxiety, suicide ideation, homicidal ideation, and hallucinations, Allergy/Immunology: Negative for hives, rash, and allergies, Endocrine: Negative for neck swelling, polydipsia, polyuria, polyphagia, and marked weight changes, Hematologic/Lymphatic: Negative for swollen nodes, abnormal bleeding, and unusual bruising. 08:41 Skin: Positive for rash, diffusely, urticaria. Exam: 08:41 Constitutional: This is a well developed, well nourished patient who is awake, alert, dang and in no acute distress. Head/Face: Normocephalic, atraumatic. Eyes: Pupils equal round and reactive to light, extra-ocular motions intact. Lids and lashes normal. Conjunctiva and sclera are non-icteric and not injected. Cornea within normal limits. Periorbital areas with no swelling, redness, or edema. ENT: Nares patent. No nasal discharge, no septal abnormalities noted. Tympanic membranes are normal and external auditory canals are clear. Oropharynx with no redness, swelling, or masses, exudates, or evidence of obstruction, uvula midline. Mucous membranes moist. Neck: Trachea midline, no thyromegaly or masses palpated, and no cervical lymphadenopathy. Supple, full range of motion without nuchal rigidity, or vertebral point tenderness. No Meningismus. Chest/axilla: Normal chest wall appearance and motion. Nontender with no deformity. No lesions are appreciated. Cardiovascular: Regular rate and rhythm with a normal S1 and S2. No gallops, murmurs, or rubs. Normal PMI, no JVD. No pulse deficits. Respiratory: Lungs have equal breath sounds bilaterally, clear to auscultation and percussion. No rales, rhonchi or wheezes noted. No increased work of breathing, no retractions or nasal flaring. Abdomen/GI: Soft, non-tender, with normal bowel sounds. No distension or tympany. No guarding or rebound. No evidence of tenderness throughout. Back: No spinal tenderness. No costovertebral tenderness. Full range of motion. Female : Normal external genitalia. MS/ Extremity: Pulses equal, no cyanosis. Neurovascular intact. Full, normal range of motion. Neuro: Awake and alert, GCS 15, oriented to person, place, time, and situation. Cranial nerves II-XII grossly intact. Motor strength 5/5 in all extremities. Sensory grossly intact. Cerebellar exam normal. Normal gait. Psych: Awake, alert, with orientation to person, place and time. Behavior, mood, and affect are within normal limits. 08:41 Skin: Appearance: Color: erythematous, Temperature: normal temperature, warm, Moisture: normal moisture, petechiae, not noted, ecchymosis, not noted, flushing, not noted, diaphoresis is not appreciated, swelling, is not appreciated, rash a moderate rash is noted, rash can be described as urticarial. Vital Signs: 07:50 BP 144 / 88; Pulse 89; Resp 16; Temp 97.7; Pulse Ox 99% ; Weight 68.04 kg; Height 5 ft. hb 2 in. (157.48 cm); Pain 0/10; 07:50 Body Mass Index 27.44 (68.04 kg, 157.48 cm) hb MDM: 08:16 Patient medically screened. dang 08:45 Data reviewed: vital signs, nurses notes. [facility] 08:45 Differential diagnosis: allergic reaction. Data interpreted: monitor and storage bin tender: not dang applicable for this patient encounter. ED course: no new meds, 11 days ago, no dyspnea, no wheezing. Administered Medications: 08:40 CANCELLED (Duplicate Order): Pepcid 20 mg PO once dang 09:00 Drug: Benadryl 25 mg Route: PO; em 09:07 Follow up: Response: No adverse reaction em 09:00 Drug: predniSONE 60 mg Route: PO; em 09:07 Follow up: Response: No adverse reaction em 09:00 Drug: Pepcid 40 mg Route: PO; em 09:07 Follow up: Response: No adverse reaction em Disposition: 09/13/19 08:46 Discharged to Home. Impression: Urticaria. - Condition is Stable. - Discharge Instructions: Hives, Hives, [id number]. - Prescriptions for Benadryl 25 mg Oral Capsule - take 1 capsule by ORAL route every 6 hours As needed; 30 tablet. Pepcid 20 mg Oral Tablet - take 1 tablet by ORAL route every 12 hours for 10 days; 20 tablet. Prednisone 20 mg Oral Tablet - take 2 tablet by ORAL route once daily for 5 days; 10 tablet. - Medication Reconciliation Form, Thank You Letter, Antibiotic Education, Prescription Opioid Use form. - Follow up: Teo Arellano MD; When: 2 - 3 days; Reason: Recheck today's complaints, Re-evaluation by your physician. - Problem is new. - Symptoms have improved. Signatures: Gurpreet Branch MD MD cha Munoz, Edgar RN RN em Shalonda Dasilva, ALVIN RN Corrections: (The following items were deleted from the chart) 08:40 08:40 Pepcid 20 mg PO once ordered. dang leong 09:08 08:46 09/13/2019 08:46 Discharged to Home. Impression: Urticaria. Condition is Stable. em Forms are Medication Reconciliation Form, Thank You Letter, Antibiotic Education, Prescription Opioid Use. Follow up: Teo Arellano; When: 2 - 3 days; Reason: Recheck today's complaints, Re-evaluation by your physician. Problem is new. Symptoms have improved. dang
[2019-09-13] MEDS ORDERED: FAMOTIDINE 20 MG TAB ONE (08:58)
[2019-09-13] MEDS ORDERED: DIPHENHYDRAMINE 25 MG TAB/CAP ONE (08:58)
[2019-09-13] MEDS ORDERED: predniSONE 20 MG TAB ONE (08:58)
[2019-09-13 09:25] VITALS: BP 144/88; TEMP 97.7; O2SAT 99
== END 2019-09-13 09:08 | disposition home or self-care (01) ==
LOC: ER 07:31
DX: L50.9 Urticaria, unspecified (principal); Z88.5 Allergy status to narcotic agent; Z88.6 Allergy status to analgesic agent; Z88.8 Allergy status to other drugs, medicaments and biological substances
CPT/HCPCS: 99283; J7512

== ENCOUNTER 2020-01-25 10:14 | Emergency (ER) | payer OTHER ==
--- OUTSIDE RECORDS SUMMARY | 2020-01-25 10:16 | XMS REPORT | Summary of Care ---
:1990 Author Organization [facility] Address [address] [place] [id number] Care Team Providers Name Role Phone Pcp, Patient Does Not Have A Primary Care Provider +1-000-00 0-0000 Reason for Visit Reason Comments Notification Encounter Details Date Type Department Care Team Description 11/30/2019 Telephone [facility] [place] [facility] NavarroLeeann MD Notification Healthcare- [address] DR[address]le [address] [place] [address] [place] [id number] Allergies Active Allergy Reactions Severity Noted Date Comments Fluticasone Propionate Anaphylaxis 01/05/2019 Morphine Hives 01/05/2019 documented as of this encounter (statuses as of 11/30/2019) Medications Medication Sig Dispensed Refills Start Date [...] as of this encounter (statuses as of 11/30/2019) Active Problems Problem Noted Date Liveborn , [...] as of this encounter (statuses as of 11/30/2019) Resolved Problems Problem Noted Date Resolved Date 39 weeks gestation of 05/21/2019 08/18/19 20 Nausea and vomiting during prior to 22 weeks 02/2005/21/2019 gestation documented as of this encounter (statuses as of 11/30/2019) Immunizations Name Administration Dates Next Due Influenza [...] Treatment Date Type Specialty Care Team Description 04/04/2020 Office Visit Obstetrics & Gynecology Ninfa Diane PA-C [address] [place] [address] [phone] Health Maintenance Due Date Last Done Comments INFLUENZA VACCINE (#1) 2020 02/20/2019 Depression Screening 08/30/2020 08/31/2019 PAP SMEAR 01/05/2022 01/05/2019 DTaP,Tdap,and Td Vaccines (2 - Td) 06/30/2029 06/30/2019 PNEUMOCOCCAL 0-64 YEARS COMBINED Aged Out No longer eligible based on SERIES patient's age to complete this topic documented as of this encounter Results Not on filedocumented in this encounter Insurance Payer Benefit Plan / Group Subscriber ID Effective Dates Phone Address Type AETNA AETNA [facility] CARE [id number] 2018-Present PPO AETNA [place] AN AETNA [place] [id number] 2019-Present PPO documented as of this encounter
--- OUTSIDE RECORDS SUMMARY | 2020-01-25 10:16 | XMS REPORT | Continuity of Care Document ---
:1990 Author Organization [facility] t Address [address] [place] [address] Care Team Providers Name Role Phone Leeann Navarro MD Attending Clinician Roxi RAINEY Attending Clinician Doctor Unassigned, Name Attending Clinician Unavailable Nurse, General Surgery Attending Clinician Unavailable 2, Lab Attending Clinician Unavailable Ultrasound, Mfm Attending Clinician Unavailable Terell Navarro MD Admitting Clinician Problems This patient has no known problems. Allergies, Adverse Reactions, Alerts This patient has no known allergies or adverse reactions. Medications This patient has no known medications. Procedures This patient has no known procedures. Encounters Start End Encounter Admission Attending Care Care Encounter Source Date/Time Date/Time Type Type Clinicians Facility Department ID 2019-11-30 2019-11-30 Telephone Leeann Navarro [facility] [id number] 00:00:00 00:00:00 Terell Rose [id number] Adri [id number] Trina [phone] [address] 2019-10-05 2019-10-05 Telephone ALIS Diane [id number] 00:00:00 00:00:00 Ninfa Rose [id number] Adri [id number] Professio [phone] [facility] 2019-10-01 2019-10-01 [facility] [id number] 16:02:24 16:17:24 ne Visit Ninfa Rose [id number] [place] [id number] Professio [phone] [facility] 2019-09-09 2019-09-09 Telephone Leeann Navarro [facility] [id number] 00:00:00 00:00:00 Cam [place] [id number] [place] [id number] Professio [phone] [facility] [address] [facility] 2019-09-01 2019-09-03 Hospital Leeann Navarro [facility] [id number] 14:45:05 14:35:00 Encounter Terell Rose [id number] [place] [id number] [place] [id number] [id number] 2019-09-01 2019-09-01 Orders Doctor LIZZY [id number] 00:00:00 00:00:00 Only Unassigned, BENJAMIN [id number] [place] [facility] 4.2.7.2.686 [id number] 009 2019-08-31 2019-08-31 Nurse Nurse, [facility] [id number] 09:46:24 09:57:42 Visit General Rose [id number] Surgery [place] [id number] Professio [phone] [address] 2019-08-31 2019-08-31 Orders Doctor LIZZY [id number] 00:00:00 00:00:00 Only Unassigned, BENJAMIN [id number] [place] [facility] [id number] [phone] 009 2019-08-31 2019-08-31 [facility] [id number] 00:00:00 00:00:00 Cam [place] [id number] [place] [id number] Professio [phone] [address] 2019-08-26 2019-08-26 Telephone Roxi, [facility] [id number] 00:00:00 00:00:00 Ninfa [place] [id number] [place] [id number] Professio [phone] [address] 2019-08-25 2019-08-25 Routine Ramon Leeann [facility] [id number] 15:41:47 16:23:32 Cam [place] [id number] Visit [place] [id number] Professio [phone] [address] 2019-08-18 2019-08-18 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, 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 [facility] 1.2.840.114 [id number] 10:12:06 10:27:06 Visit [place] [id number] [place] [id number] Professio [phone] [address] 2019-08-18 2019-08-18 Routine Wolfrekha, [facility] [id number] 08:39:01 10:03:11 Ninfa [place] 350.1.13.10 Visit [place] [id number] Professio [phone] [address] 2019-08-18 2019-08-18 Orders Doctor LIZZY [id number] 00:00:00 00:00:00 Only Unassigned, BENJAMIN [id number] [place] [facility] [phone] [id number] 2019-08-11 2019-08-11 Telemedici Leeann Navarro [facility] [id number] 08:19:44 08:34:44 ne Visit Cam [place] [id number] [place] [id number] Professio [phone] [address] 2019-08-07 2019-08-07 Hydraulic Hammer Operator Ultrasound, [place] 1.2.840.114 [id number] 15:03:18 16:03:46 Visit Adc Mfm Rose [id number] [place] [id number] Profess [phone] [facility] [address] Building 2019-07-28 2019-07-28 Routine Roxi [facility] [id number] 08:54:25 09:31:08 Ninfa Rose [id number] Visit [place] [id number] [facility] [phone] [address] Results This patient has no known results.
--- NOTE | 2020-01-25 13:13 | EDPHYS ---
Physician Documentation [facility] Name: Sindy Chavez Age: 29 yrs Sex: Female : 1990 Arrival Date: 01/25/2020 Time: 10:17 Bed 19 Private MD: ED Physician Ross Barnett HPI: 01/24 13:11 This 29 yrs old Female presents to ER via Ambulatory with complaints of Body snw Aches, Fever. 13:11 Onset: The symptoms/episode began/occurred suddenly, 3 day(s) ago, and became snw persistent. Associated signs and symptoms: Pertinent positives: fever, extreme bodyaches. Modifying factors: The patient symptoms are alleviated by nothing. The patient has not experienced similar symptoms in the past. The patient has not recently seen a physician. 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 - Social history:: Smoking status: Patient denies any tobacco usage or history of. Patient/guardian denies using alcohol, street drugs. ROS: 12:11 Constitutional: Negative for chills and weight loss, Eyes: Negative for injury, pain, snw redness, and discharge, ENT: Negative for injury, pain, and discharge, Neck: Negative for injury, pain, and swelling, Cardiovascular: Negative for chest pain, palpitations, and edema, Respiratory: Negative for shortness of breath, cough, wheezing, and pleuritic chest pain, Abdomen/GI: Negative for abdominal pain, nausea, vomiting, diarrhea, and constipation, Back: Negative for injury. positive back pain, body aches : Negative for injury, bleeding, discharge, and swelling, MS/Extremity: Negative for injury and deformity, Skin: Negative for injury, rash, and discoloration, Neuro: Negative for headache, weakness, numbness, tingling, and seizure, Psych: Negative for depression, anxiety, suicide ideation, homicidal ideation, and hallucinations. 12:11 Constitutional: Positive for fatigue, fever, malaise. Exam: 12:09 Constitutional: This is a well developed, well nourished patient who is awake, alert, snw and in no acute distress. Head/Face: Normocephalic, atraumatic. Eyes: Pupils equal round and reactive to light, extra-ocular motions intact. Lids and lashes normal. Conjunctiva and sclera are non-icteric and not injected. Cornea within normal limits. Periorbital areas with no swelling, redness, or edema. ENT: Nares patent. No nasal discharge, no septal abnormalities noted. Tympanic membranes are normal and external auditory canals are clear. Oropharynx with no redness, swelling, or masses, exudates, or evidence of obstruction, uvula midline. Mucous membranes moist. Neck: Trachea midline, no thyromegaly or masses palpated, and no cervical lymphadenopathy. Supple, full range of motion without nuchal rigidity, or vertebral point tenderness. No Meningismus. Chest/axilla: Normal chest wall appearance and motion. Nontender with no deformity. No lesions are appreciated. Cardiovascular: Regular rate and rhythm with a normal S1 and S2. No gallops, murmurs, or rubs. Normal PMI, no JVD. No pulse deficits. Respiratory: Lungs have equal breath sounds bilaterally, clear to auscultation and percussion. No rales, rhonchi or wheezes noted. No increased work of breathing, no retractions or nasal flaring. Abdomen/GI: Soft, non-tender, with normal bowel sounds. No distension or tympany. No guarding or rebound. No evidence of tenderness throughout. Back: No spinal tenderness. No costovertebral tenderness. Full range of motion. Skin: Warm, dry with normal turgor. Normal color with no rashes, no lesions, and no evidence of cellulitis. MS/ Extremity: Pulses equal, no cyanosis. Neurovascular intact. Full, normal range of motion. Neuro: Awake and alert, GCS 15, oriented to person, place, time, and situation. Cranial nerves II-XII grossly intact. Motor strength 5/5 in all extremities. Sensory grossly intact. Cerebellar exam normal. Normal gait. Vital Signs: 10:28 BP 127 / 67; Pulse 83; Resp 17; Temp 98.3; Pulse Ox 97% ; Weight 72.57 kg; Height 5 ft. ll1 2 in. (157.48 cm); Pain 7/10; 10:28 Body Mass Index 29.26 (72.57 kg, 157.48 cm) ll1 MDM: 11:26 Patient medically screened. snw 13:13 Data reviewed: vital signs, nurses notes. Data interpreted: Pulse oximetry: on room air snw is 97 %. Interpretation: normal. Counseling: I had a detailed discussion with the patient and/or guardian regarding: the historical points, exam findings, and any diagnostic results supporting the discharge/admit diagnosis, lab results, the need for outpatient follow up, to return to the emergency department if symptoms worsen or persist or if there are any questions or concerns that arise at home. Special discussion: Based on the history and exam findings, there is no indication for further emergent testing or inpatient evaluation. I discussed with the patient/guardian the need to see the primary care provider for further evaluation of the symptoms. 01/24 10:53 Order name: COVID-19; Complete Time: 13:07 snw 01/24 10:53 Order name: Flu; Complete Time: 12:42 snw 01/24 10:53 Order name: Strep; Complete Time: 12:42 snw 01/24 10:53 Order name: Urine Culture snw 01/24 10:53 Order name: Urine Microscopic Only; Complete Time: 13:44 snw 01/24 12:35 Order name: Throat Culture EDMS 01/24 10:53 Order name: Urine Test (obtain specimen); Complete Time: 13:10 snw 01/24 10:53 Order name: Urine Dipstick-Ancillary (obtain specimen); Complete Time: 13:10 snw 01/24 13:13 Order name: Urine Dipstick--Ancillary (enter results); Complete Time: 13:18 eb 01/24 13:13 Order name: Urine --Ancillary (enter results); Complete Time: 13:18 eb Administered Medications: No medications were administered Point of Care Testing: Urine : 13:10 hCG Reading: Negative; Control Reading: Positive; jp3 Disposition: 17:18 Co-signature as Attending Physician, Ross Barnett MD. ma2 Disposition: 01/25/20 13:12 Discharged to Home. Impression: Viral infection, unspecified. - Condition is Stable. - Discharge Instructions: Fever, Adult, Muscle Pain, Adult, Viral Respiratory Infection, Rehydration, Adult. - Prescriptions for orphenadrine citrate 100 mg Oral Tablet Sustained Release - take 1 tablet by ORAL route 2 times per day As needed; 20 tablet. promethazine 25 mg Oral Tablet - take 1 tablet by ORAL route every 6 hours As needed; 20 tablet. - Work release form, Medication Reconciliation Form, Thank You Letter, Antibiotic Education, Prescription Opioid Use form. - Follow up: Emergency Department; When: As needed; Reason: Worsening of condition. Follow up: Private Physician; When: 2 - 3 days; Reason: Recheck today's complaints, Continuance of care, Re-evaluation by your physician. Signatures: Dispatcher [employer] EDMS Ann Moran, CHRISTMAS TREE FARM MANAGER-C CHRISTMAS TREE FARM MANAGER-Csnw Ghazala Oleary RN RN iw Ross Barnett MD MD ma2 Alexandra Chappell RN RN ll1 Corrections: (The following items were deleted from the chart) 10:32 10:30 Allergies: Morphine; ll1 ll1 10:32 10:30 Allergies: Tylenol; ll1 ll1 13:46 13:12 01/25/2020 13:12 Discharged to Home. Impression: Viral infection, unspecified. iw Condition is Stable. Forms are Medication Reconciliation Form, Thank You Letter, Antibiotic Education, Prescription Opioid Use. Follow up: Emergency Department; When: As needed; Reason: Worsening of condition. Follow up: Private Physician; When: 2 - 3 days; Reason: Recheck today's complaints, Continuance of care, Re-evaluation by your physician. snw
--- NOTE | 2020-01-25 13:13 | ER ---
Nurse's Notes [facility] Name: Sindy Chavez Age: 29 yrs Sex: Female : 1990 Arrival Date: 01/25/2020 Time: 10:17 Bed 19 Private MD: Diagnosis: Viral infection, unspecified Presentation: 01/24 10:28 Chief complaint: Patient states: Body aches, fever, fatigue, slight dry cough, slight ll1 sore throat since Saturday. Fever up to 101.1 at home. + nausea. Coronavirus screen: Client denies travel out of the [place] in the last 14 days. cough unrelated to allergies, fatigue, fever, muscle pain, nausea, sore throat, Client presents with at least one sign or symptom that may indicate coronavirus-19. Standard/surgical mask placed on the client. Ebola Screen: Patient denies travel to an Ebola-affected area in the 21 days before illness onset. Initial Sepsis Screen: Does the patient meet any 2 criteria? No. Patient's initial sepsis screen is negative. Risk Assessment: Do you want to hurt yourself or someone else? Patient reports no desire to harm self or others. Onset of symptoms was January 22, 2020. 10:28 Method Of Arrival: Ambulatory ll1 10:28 Acuity: AVIS 3 ll1 10:30 Initial Sepsis Screen: Does the patient have a suspected source of infection? No. iw Patient's initial sepsis screen is negative. 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 - Social history:: Smoking status: Patient denies any tobacco usage or history of. Patient/guardian denies using alcohol, street drugs. Screenin:52 Abuse screen: Denies threats or abuse. Denies injuries from another. Nutritional iw screening: No deficits noted. Tuberculosis screening: No symptoms or risk factors identified. Fall Risk None identified. Assessment: 11:52 General: Appears in no apparent distress. comfortable, Behavior is calm, cooperative. iw General: Reports fever for feeling ill for 1-2 days, fatigue for 1-2 days. Pain: Complains of pain in suprapubic area and left lower quadrant. Neuro: Level of Consciousness is awake, alert, obeys commands, Oriented to person, place, time, situation, Moves all extremities. Full function. Respiratory: Respiratory effort is even, unlabored, Respiratory pattern is regular, symmetrical. : Reports pain in suprapubic area. Derm: Skin is intact, is healthy with good turgor. Musculoskeletal: Range of motion: intact in all extremities. Vital Signs: 10:28 BP 127 / 67; Pulse 83; Resp 17; Temp 98.3; Pulse Ox 97% ; Weight 72.57 kg; Height 5 ft. ll1 2 in. (157.48 cm); Pain 7/10; 10:28 Body Mass Index 29.26 (72.57 kg, 157.48 cm) ll1 ED Course: 10:17 Patient arrived in ED. ds1 10:30 Triage completed. ll1 10:31 Arm band placed on. ll1 10:52 Ann Moran FNP-C [facility]. snw 10:52 Ross Barnett MD is Attending Physician. snw 11:33 Ghazala Oleary, ALVIN is Primary Nurse. iw 11:55 No apparent distress. ls4 11:55 No provider procedures requiring assistance completed. ls4 12:00 Patient has correct armband on for positive identification. Bed in low position. Call ls4 light in reach. Side rails up X 1. Pulse ox on. NIBP on. Verbal reassurance given. 13:10 Urine collected: clean catch specimen, clear, татьяна colored. jp3 13:26 Patient did not have IV access during this emergency room visit. iw Administered Medications: No medications were administered Point of Care Testing: Urine : 13:10 hCG Reading: Negative; Control Reading: Positive; jp3 Outcome: 13:12 Discharge ordered by . snw 13:27 Discharged to home ambulatory. ls4 13:27 Condition: good 13:27 Discharge instructions given to patient, family, Instructed on discharge instructions, Demonstrated understanding of instructions, follow-up care, medications, Prescriptions given X 2. 13:46 Patient left the ED. iw Addendum: 01/27/2020 11:47 Addendum: COVID-19 Result: Negative result given to RN to notify pt. Notified pt of i w negative COVID 19 swab results. Pt advised that even with a negative test result they should remain in isolation until symptom free for 3 days without medication. Pt also advised to return to the ED for worsening symptoms. Signatures: Ann Moran, LAVERNC MUSEUM OR ZOO DIRECTOR-CsnGaviota Summers ds1 Ghazala Oleary RN RN iw Jacky Weeks jp3 Michelle Downing RN RN ls4 Alexandra Chappell RN RN ll1 Corrections: (The following items were deleted from the chart) 01/24 10:32 10:30 Allergies: Morphine; ll1 ll1 : 10:30 Allergies: Tylenol; ll1 ll1
[2020-01-25 13:16] LABS: Urine Blood NEGATIVE (NEG); Urine Glucose NEGATIVE (NEG); Urine Protein NEGATIVE (NEG); Urine pH 6.5 (5.0-7.0)
[2020-01-25 13:41] LABS: Urine Bacteria <20 /HPF (<20); Urine Culture Reflex Order NOT NEEDED; Urine RBC NONE SEEN /HPF (NONE SEEN)
[2020-01-26 02:15] VITALS: BP 127/67; TEMP 98.3; O2SAT 97
== END 2020-01-25 13:46 | disposition home or self-care (01) ==
LOC: ER 10:14
DX: B34.9 Viral infection, unspecified (principal); Z20.828 Contact with and (suspected) exposure to other viral communicable diseases; Z88.8 Allergy status to other drugs, medicaments and biological substances
CPT/HCPCS: 87070; 87088; 87086; 81025; 87081; 87804 ×2; 99283; U0002; 81003; 81015

== ENCOUNTER 2020-07-11 22:07 | Emergency (ER) | payer OTHER ==
--- OUTSIDE RECORDS SUMMARY | 2020-07-11 22:13 | XMS REPORT | Continuity of Care Document ---
:[address] [facility] t Address [address] [place] [address] Care Team Providers Name Role Phone Lab, [facility] Fam Pob I Attending Clinician Unavailable Roxi RAINEY Attending Clinician Problems This patient has no known problems. Allergies, Adverse Reactions, Alerts This patient has no known allergies or adverse reactions. Medications This patient has no known medications. Procedures This patient has no known procedures. Encounters Start End Encounter Admission Attending Care Care Encounter Source Date/Time Date/Time Type Type Clinicians Facility Department ID 2020-04-28 2020-04-28 Laboratory Lab, [facility] [id number] 14:17:22 14:37:22 Only Fam Pob I [facility] [id number] [place] [id number] Professio [phone] [facility] [address] 2020-04-05 2020-04-05 Case ALIS Diane [id number] 00:00:00 00:00:00 Management Ninfa Rose [id number] [place] [id number] Professio [phone] [place] [address] Building 2020-04-04 2020-04-04 Office ALIS Diane [id number] 15:47:44 16:17:44 Visit Ninfa Rose [id number] [place] [id number] Professio [phone] [facility] 134 Building Results This patient has no known results.
[2020-07-11] MEDS ORDERED: KETOROLAC 30 MG/ML INJ ONE (23:18)
[2020-07-11] MEDS ORDERED: FENTANYL CITR 100 MCG/2 ML ONE (23:18)
[2020-07-11] MEDS ORDERED: ONDANSETRON 4 MG/2 ML VIAL ONE (23:51)
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
[2020-07-12 04:50] VITALS: TEMP 98.2
[2020-07-12 04:54] VITALS: BP 119/67; O2SAT 97
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
--- NOTE | 2020-07-12 09:10 | RAD REPORT ---
EXAM DESCRIPTION: RAD - Shoulder Left 2 View - 07/11/2020 11:53 pm CLINICAL HISTORY: Left shoulder pain FINDINGS: No fracture or dislocation is seen.
== END 2020-07-12 02:50 | disposition home or self-care (01) ==
LOC: ER 22:07
PROC: 2W3DX1Z Immobilization of Left Lower Arm using Splint (ICD-10-PCS; principal; 2020-07-12)
DX: S60.212A Contusion of left wrist, initial encounter (principal); S60.222A Contusion of left hand, initial encounter; V49.49XA Driver injured in collision with other motor vehicles in traffic accident, initial encounter
CPT/HCPCS: 73080; 73030; 73110; 96375; 96374; 99284; 29125; J3010; J2405

== ENCOUNTER 2020-07-19 15:04 | Emergency (ER) | payer BC, OTHER ==
--- OUTSIDE RECORDS SUMMARY | 2020-07-19 15:07 | XMS REPORT | Continuity of Care Document ---
:1990 Author Organization [facility] t Address [address] [place] [address] Care Team Providers Name Role Phone Lab, [facility] Fam Pob I Attending Clinician Unavailable Roxi [...] Facility Department ID 2020-04-28 2020-04-28 Laboratory Lab, [facility] [id number] 14:17:22 14:37:22 Only Fam Pob I [facility] [id number] Rose [id number] Professio [phone] formerly [facility] [address] 2020-04-05 2020-04-05 Case ALIS Diane [id number] 00:00:00 00:00:00 Management Ninfa Rose [id number] [place] [id number] Professio [phone] [place] [address] Building 2020-04-04 2020-04-04 Office ALIS Diane [id number] 15:47:44 16:17:44 Visit Ninfa Rose [id number] [place] [id number] Professio [phone] [facility] [address] Building Results This patient has no known results.
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
[2020-07-19 17:56] VITALS: O2SAT 100
[2020-07-19 17:58] VITALS: BP 137/89; TEMP 98.5
== END 2020-07-19 17:04 | disposition home or self-care (01) ==
LOC: ER 15:04
DX: F07.81 Postconcussional syndrome (principal); S76.012A Strain of muscle, fascia and tendon of left hip, initial encounter; V89.2XXA Person injured in unspecified motor-vehicle accident, traffic, initial encounter; Z88.8 Allergy status to other drugs, medicaments and biological substances
CPT/HCPCS: 70450; 99283